=== PATIENT | female | born 1940 | race Caucasian/White ===

== ENCOUNTER 2020-08-10 06:54 | Outpatient (NON) | payer MEDICARE, SELFPAY ==
[2020-08-10 18:05] LABS: SARS-CoV-2 RNA PCR Negative
== END 2020-08-10 06:55 ==
LOC: ANHCOVIDDT 06:59
PROVIDERS: PCP Internal Medicine; Visit Provider Internal Medicine
DX: Z20.828 Contact with and (suspected) exposure to other viral communicable diseases (principal)
CPT/HCPCS: 87635; C9803; U0003

== ENCOUNTER → 2020-12-05 15:27 | Outpatient (REF) | payer MEDICARE, SELFPAY | LOC: ANHLAB 15:27 | PROVIDERS: PCP Internal Medicine; Visit Provider Nurse Practitioner | DX: C44.319 Basal cell carcinoma of skin of other parts of face (principal) | CPT/HCPCS: 88305 ==

== ENCOUNTER → 2021-01-09 09:56 | Outpatient (REF) | payer MEDICARE, SELFPAY | LOC: ANHLAB 09:56 | PROVIDERS: PCP Internal Medicine; Visit Provider Nurse Practitioner | DX: C44.319 Basal cell carcinoma of skin of other parts of face (principal) | CPT/HCPCS: 88305; 88331 ==

== ENCOUNTER 2021-02-08 18:35 | Emergency (ER) | payer MEDICARE, SELFPAY | END 2021-02-08 19:24 | disposition left against medical advice (07) | LOC: ANHED 19:23 | PROVIDERS: PCP Internal Medicine | DX: Z53.21 Procedure and treatment not carried out due to patient leaving prior to being seen by health care provider (principal) | CPT/HCPCS: 99199 ==

== ENCOUNTER 2021-02-10 16:47 | Emergency (ER) | payer MEDICARE, SELFPAY ==
[2021-02-10 16:57] VITALS: BP 141/62; PULSE 79; RESP 16; TEMP 36.3; O2SAT 97
--- NOTE | 2021-02-10 17:30 | ED.GENADULT ---
HPI - General Adult General Chief complaint: Ear Stated complaint: neck pain/ear pain Time Seen by Provider: 02/10/21 17:30 Source: patient and RN notes reviewed Mode of arrival: ambulatory Limitations: no limitations History of Present Illness HPI narrative: 80-year-old female presents with complaints of neck pain and fatigue for the past 14 days. Lance reports awakening with neck pain, which is constant at this time. 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 Arthritis rub and Ibuprofen last taken on 02/09/2021 with some relief. No recent injury. No headache or numbness or weakness in the arms/upper extremities. Denies numbness or tingling. Denies pain with movement of shoulder. No loss of mobility. No swelling. Some relieving factor is rest and medication. The dominant hand is the RIGHT HAND. Remains active. The patient reports she has not been diagnosed with COVID-19. The patient reports she received 2 Pfizer vaccines. ?The patient reports she is not waiting for the results of a COVID-19 lab test. The patient reports she does not have a new or worsening cough or shortness of breath. Denies chest pain. ?The patient reports she does not have any rhinorrhea, congestion, loss of taste or smell, sore throat, abdominal pain, and diarrhea. ?Denies recent traveling. ?Denies concerns for COVID-19 or exposures. ?At this time, the patient is not suspected of having COVID-19. Some parts of this dictation were generated by voice recognition software and may contain typographical and/or grammatical inaccuracies. Related Data Allergies Allergy/AdvReac Type Severity Reaction Status Date / Time acetaminophen [From Vicodin] Allergy Severe Swelling Verified 02/10/21 17:02 of Lip/Tongue/Throat hydrocodone Allergy Severe Anaphylactic Verified 02/10/21 17:02 Shock propoxyphene Allergy Mild NECK Verified 02/10/21 17:02 SWELLING Sulfa (Sulfonamide Allergy Mild Nausea Verified 02/10/21 17:02 Antibiotics) FISH Allergy Severe THROAT Uncoded 02/10/21 17:02 SWELLS CEFUROXIME AXETIL Allergy Intermediate HIVES Uncoded 02/10/21 17:02 SHELLFISH Allergy Unknown Anaphylactic Uncoded 02/10/21 17:02 Shock Review of Systems Review of Systems: Narrative: CONSTITUTIONAL: Denies fever, chills, sweats. EYES: Denies visual changes, redness, discharge. ENT: Denies rhinorrhea, congestion, sore throat, otalgia. CARDIOVASCULAR: Denies chest pain, palpitations, edema. RESPIRATORY: Denies dyspnea, wheezing, cough. GASTROINTESTINAL: Denies abdominal pain, nausea, vomiting, diarrhea. SKIN: Denies rash or itching. MUSCULOSKELETAL: Denies acute back pain or myalgia. Complains of neck pain. NEUROLOGIC: Denies numbness or focal weakness. PSYCHIATRIC: Denies anxiety or depression. All other systems reviewed are negative, except as documented in HPI and below. [facility] Past Medical History Medical History (Updated 02/11/21 @ 00:00 by [facility]) Actinic keratosis Basal cell carcinoma of right hoahaoism region Benign mole Chronic allergic rhinitis Diabetes Type II Essential (primary) hypertension Low back pain at multiple sites Major depression, recurrent, chronic OAB (overactive bladder) (08/06/18) Skin Lesion Surgical History Surgical History (Updated 02/10/21 @ 17:47 by CARLY Boateng) History of cholecystectomy Family History Family History Father Family history of lung cancer Sibling Family history of lung cancer Mother Family history of congestive heart failure Other Cerebrovascular accident Diabetes mellitus Family history of cardiovascular disease Family history of chronic obstructive pulmonary disease Hypertension Social History Social History (Updated 02/10/21 @ 17:48 by CARLY Boateng) Smoking status: Never smoker Tobacco type: cigarettes Second hand tobacco smoke e
== END 2021-02-10 18:02 | disposition home or self-care (01) ==
PROVIDERS: Emergency Provider Nurse Practitioner Family
DX: M54.2 Cervicalgia (principal); E11.9 Type 2 diabetes mellitus without complications; I10 Essential (primary) hypertension; Z85.828 Personal history of other malignant neoplasm of skin
CPT/HCPCS: 99213; G0463

== ENCOUNTER 2021-02-27 17:19 | Emergency (ER) | payer MEDICARE, SELFPAY ==
[2021-02-27] VITALS (31 sets, daily range): BP systolic 143–174; BP diastolic 70–88; PULSE 65–82; RESP 16–20; TEMP 36.1–36.7; O2SAT 96–100
--- NOTE | ~2021-02-27 | CT_ITS ---
EXAMINATION: CT cervical spine wo con EXAM DATE: 02/27/2021 23:03 INDICATION: Posterior neck pain. No recent injury has been indicated. TECHNIQUE: Spiral CT of the cervical spine was performed without contrast. Axial images were reviewe d. Coronal and sagittal reformatted images cervical spine were also reviewed. The dose-length produc t (DLP) for this examination was 108.71 mGy-cm. The exposure was tailored according to patient size (auto mA exposure control), and iterative reconstruction (ASIR) was used as additional dose reduction technique. There is no prior study for comparison. FINDINGS: The vertebral bodies are aligned in the AP dimension. There are no acute fractures identifi ed. The odontoid process is intact. The lateral masses of C1 line up with C2. Prevertebral soft tiss ue and pre-dens space are within normal limits. Overall moderate to severe diffuse cervical disc dise ase. There is thoracic kyphosis. Level by level evaluation: C2-C3: Disc does not extend beyond the endplate margin. Uncovertebral joint arthropathy: Mild to moderate left. Facet joint arthropathy: Moderate bilateral. Neural foraminal stenosis: No stenosis. Central canal stenosis: No stenosis. C3-C4: There is posterior disc osteophyte complex asymmetric to the left Uncovertebral joint arthropathy: Moderate left, mild to moderate right. Facet joint arthropathy: Moderate bilateral. Neural foraminal stenosis: Moderate left, mild right. Central canal stenosis: Mild. C4-C5: There is mild disc osteophyte complex. Uncovertebral joint arthropathy: Moderate right, mild to moderate left. Facet joint arthropathy: Moderate to severe right, mild to moderate left. Neural foraminal stenosis: Moderate to severe right, moderate left. Central canal stenosis: Mild. C5-C6: There is mild disc osteophyte complex. Uncovertebral joint arthropathy: Moderate to severe bilateral. Facet joint arthropathy: Moderate bilateral. Neural foraminal stenosis: Moderate to severe bilateral. Central canal stenosis: Mild. C6-C7: There is mild disc osteophyte complex. Uncovertebral joint arthropathy: Moderate bilateral, left greater than right. Facet joint arthropathy: Mild to moderate left, mild right. Neural foraminal stenosis: Moderate left, mild to moderate right. Central canal stenosis: Mild. C7-T1: Disc does not extend beyond the endplate margin. Uncovertebral joint arthropathy: Mild right. Facet joint arthropathy: Mild bilateral. Neural foraminal stenosis: No stenosis. Central canal stenosis: No stenosis. IMPRESSION: 1. Advanced cervical spondylosis causing some significant neural foraminal stenosis as detailed abov e. Evidence of only mild central canal stenosis. 2. Thoracic kyphosis. 3. No acute findings. Reviewed, dictated and finalized at location B. IMPRESSION: 1. Advanced cervical spondylosis causing some significant neural foraminal delfino nosis as detailed above. Evidence of only mild central canal stenosis. 2. Thoracic kyphosis. 3. No acute findings.
--- NOTE | ~2021-02-27 | XR_ITS ---
XR chest 1V DATE: 02/27/2021 22:53 INDICATION: Chest pain, lower extremity edema. History of diabetes mellitus, hypertension. TECHNIQUE: AP chest COMPARISON: 07/20/2013 PA and lateral chest FINDINGS: Mild cardiomegaly. Aortic calcification and mild tortuosity. No hilar or mediastinal enlarg ement. Diffuse osteopenia. No pulmonary infiltrate or consolidation, pleural effusion or pulmonary vascular congestion or pneumo thorax is evident. Chronic mild discoid atelectasis or scarring in the left lung base. Diffuse osteopenia. Thoracic and lumbar scoliosis. Status post cholecystectomy. IMPRESSION: Mild cardiomegaly, aortic atherosclerosis No active pulmonary disease Reviewed, dictated and finalized at location A.
--- NOTE | 2021-02-27 22:31 | ECG_ITS ---
Measurements Intervals [place] Rate: 71 P: 74 WI: 174 QRS: -37 QRSD: 113 T: -1 QT: 411 QTc: 448 Interpretive Statements SINUS RHYTHM WITH SINUS ARRHYTHMIA LEFT AXIS DEVIATION INTRAVENTRICULAR CONDUCTION DELAY VOLTAGE CRITERIA FOR LVH MINIMAL Q WAVES- HIGH LATERAL LEADS NONSPECIFIC ST & T-WAVE ABNORMALITY- ANTEROLAT/INF LEADS BASELINE ARTIFACT- II, III, AVR, AVF, V3-V5 BORDERLINE ECG Electronically Signed On 02-28-2021 9:39:14 CDT by Demarco Gunter D.O.
[2021-02-27] MEDS: ASPIRIN 81 MG CHEWABLE TABLET 324 MG PO (23:08)
[2021-02-27 23:36] LABS: Alanine Aminotransferase 19 U/L (4-35); Albumin Level 4.2 g/dL (3.5-5.1); Alkaline Phosphatase 49 U/L (38-126); Anion Gap 5 mmol/L (8-16); Aspartate Amino Transferase 43 U/L (14-36); Bilirubin,Total 1.1 mg/dL (0.2-1.3); Blood Urea Nitrogen 23 mg/dL (7-17); Calcium 9.7 mg/dL (8.4-10.2); Carbon Dioxide 27 mmol/L (22-30); Chloride 106 mmol/L (98-107); Estimated CRCL calculation 37 ml/min; Estimated Glomerular Filt Rate > 60; Glucose 87 mg/dL (65-105); Potassium 4.6 mmol/L (3.4-5.0); Sodium 138 mmol/L (137-145)
[2021-02-27 23:38] LABS: Basophils Percent Auto 0.2 % (0.2-1.2); Eosinophils Absolute Auto 0.3 K/mm3 (0-0.3); Eosinophils Percent Auto 6.3 % (0-4.4); Hematocrit 35.3 % (37.0-47.0); Hemoglobin 11.5 g/dL (12.0-15.0); Lymphocytes Absolute Auto 1.61 K/mm3 (0.9-3.2); Lymphocytes Percent Auto 37.6 % (18.3-44.2); Mean Corpuscular HGB Conc 32.6 g/dl (32-36); Mean Corpuscular Hemoglobin 31.4 pg (26-34); Mean Corpuscular Volume 96.4 fl (80-100); Mean Platelet Volume 10.6 fl (7.4-10.4); Monocytes Absolute Auto 0.5 K/mm3 (0.1-0.6); Monocytes Percent Auto 11.4 % (2.6-8.5); Neutrophils Absolute Auto 1.9 K/mm3 (1.3-6.7); Neutrophils Percent Auto 44.5 % (45.5-73.1); Platelet Count Result 182 k/mm3 (150-375); Red Blood Count 3.66 M/mm3 (4.2-5.4); Red Cell Distribution Width 11.6 % (11.5-14.5); White Blood Count 4.3 K/mm3 (4.5-10.0)
[2021-02-27 23:45] LABS: NT Pro B Type Natriuretic Pept 311 pg/mL (5-100)
[2021-02-27 23:48] LABS: Troponin I < 0.012 ng/mL (0.000-0.034)
[2021-02-28] VITALS: PULSE 67; RESP 18; O2SAT 98
[2021-02-28 00:15] VITALS: PULSE 65; RESP 15; O2SAT 96
[2021-02-28 00:30] VITALS: PULSE 69; RESP 16; O2SAT 96
[2021-02-28 00:45] VITALS: PULSE 69; RESP 19; O2SAT 97
[2021-02-28 00:48] VITALS: BP 195/98; PULSE 78; RESP 18; O2SAT 100
--- NOTE | 2021-02-28 01:03 | ED.GENADULT ---
HPI - General Adult General Chief complaint: Unspecified Stated complaint: Neck pain,swelling bilateral feet and legs Time Seen by Provider: 02/27/21 22:02 Related Data Allergies Allergy/AdvReac Type Severity Reaction Status Date / Time acetaminophen [From Vicodin] Allergy Severe Swelling Verified 02/27/21 19:57 of Lip/Tongue/Throat hydrocodone Allergy Severe Anaphylactic Verified 02/27/21 19:57 Shock propoxyphene Allergy Mild NECK Verified 02/27/21 19:57 SWELLING Sulfa (Sulfonamide Allergy Mild Nausea Verified 02/27/21 19:57 Antibiotics) FISH Allergy Severe THROAT Uncoded 02/27/21 19:57 SWELLS CEFUROXIME AXETIL Allergy Intermediate HIVES Uncoded 02/27/21 19:57 SHELLFISH Allergy Unknown Anaphylactic Uncoded 02/27/21 19:57 Shock PMFSH Past Medical History Medical History (Updated 02/28/21 @ 01:03 by Cameron Ochoa MD) Actinic keratosis Basal cell carcinoma of right moravian region Benign mole Chronic allergic rhinitis Diabetes Type II Essential (primary) hypertension Low back pain at multiple sites Major depression, recurrent, chronic OAB (overactive bladder) (08/06/18) Skin Lesion Surgical History Surgical History (Updated 02/10/21 @ 17:47 by CARLY Boateng) History of cholecystectomy Family History Family History Father Family history of lung cancer Sibling Family history of lung cancer Mother Family history of congestive heart failure Other Cerebrovascular accident Diabetes mellitus Family history of cardiovascular disease Family history of chronic obstructive pulmonary disease Hypertension Social History Social History (Updated 02/10/21 @ 17:48 by CARLY Boateng) Smoking status: Never smoker Tobacco type: cigarettes Second hand tobacco smoke exposure: No Alcohol intake: current Substance use: never Substance use type: does not use Gender identity (if verbalized by the patient): Female Course Vital Signs Vital signs: Vital Signs Temperature 36.1 C L 02/27/21 17:23 Pulse Rate 79 02/27/21 17:23 Respiratory Rate 16 02/27/21 17:23 Blood Pressure 143/70 H 02/27/21 17:23 Pulse Oximetry 97 02/27/21 17:23 Temperature 36.7 C 02/27/21 19:58 Pulse Rate 78 07/06/21 00:48 Respiratory Rate 18 02/28/21 00:48 Blood Pressure 195/98 H 02/28/21 00:48 Pulse Oximetry 100 02/28/21 00:48 Medical Decision Making Vital Signs Vital Signs: Vital Signs Temperature 36.1 C L 02/27/21 17:23 Pulse Rate 79 02/27/21 17:23 Respiratory Rate 16 02/27/21 17:23 Blood Pressure 143/70 H 02/27/21 17:23 Pulse Oximetry 97 02/27/21 17:23 Temperature 36.7 C 02/27/21 19:58 Pulse Rate 78 02/28/21 00:48 Respiratory Rate 18 02/28/21 00:48 Blood Pressure 195/98 H 02/28/21 00:48 Pulse Oximetry 100 02/28/21 00:48 Lab Data Result diagrams: 02/27/21 23:11 02/27/21 23:11 Labs: Lab Results 02/27/21 02/27/21 02/27/21 Range/Units 23:11 23:11 23:11 WBC 4.3 L (4.5-10.0) K/mm3 RBC 3.66 L (4.2-5.4) M/mm3 Hgb 11.5 L (12.0-15.0) g/dL Hct 35.3 L (37.0-47.0) % MCV 96.4 (80-100) fl MCH 31.4 (26-34) pg MCHC 32.6 (32-36) g/dl RDW 11.6 (11.5-14.5) % Plt Count 182 (150-375) k/mm3 MPV 10.6 H (7.4-10.4) fl Immature Gran % (Auto) 0.0 (0-0.5) % Neut % (Auto) 44.5 L (45.5-73.1) % Lymph % (Auto) 37.6 (18.3-44.2) % [place] % (Auto) 11.4 H (2.6-8.5) % Eos % (Auto) 6.3 H (0-4.4) % Baso % (Auto) 0.2 (0.2-1.2) % Lymph # (Auto) 1.61 (0.9-3.2) K/mm3 [place] # (Auto) 0.5 (0.1-0.6) K/mm3 Eos # (Auto) 0.3 (0-0.3) K/mm3 Baso # (Auto) 0.0 (0.0-0.1) K/mm3 Abs Immat Gran (auto) 0.00 (0.00-0.031) K/mm3 Absolute Neuts (auto) 1.9 (1.3-6.7) K/mm3 Absolute Nucleated RBC 0.0 (0.0-0.012) K/mm3 Nucleated RBC % 0.0
[2021-02-28] MEDS: traMADol HCL (*CRX) 50 MG TABLET PO (01:14)
[2021-02-28 01:15] VITALS: BP 174/84; PULSE 78; RESP 18; O2SAT 100
== END 2021-02-28 01:22 | disposition home or self-care (01) ==
PROVIDERS: Emergency Provider Emergency Medicine
DX: S16.1XXA Strain of muscle, fascia and tendon at neck level, initial encounter (principal); E11.9 Type 2 diabetes mellitus without complications; I10 Essential (primary) hypertension; N32.81 Overactive bladder; Z85.828 Personal history of other malignant neoplasm of skin; R06.02 Shortness of breath; I45.9 Conduction disorder, unspecified; R94.31 Abnormal electrocardiogram [ECG] [EKG]; X58.XXXA Exposure to other specified factors, initial encounter
CPT/HCPCS: 36415; 71045; 72125; 80053; 83880; 84484; 85025; 93005; 99284; A9270

== ENCOUNTER 2021-03-17 10:31 | Outpatient (CLI) | payer MEDICARE, SELFPAY ==
[2021-03-17 10:56] LABS: Basophils Percent Auto 0.3 % (0.2-1.2); Eosinophils Absolute Auto 0.3 K/mm3 (0-0.3); Eosinophils Percent Auto 7.5 % (0-4.4); Hematocrit 35.7 % (37.0-47.0); Hemoglobin 11.7 g/dL (12.0-15.0); Lymphocytes Absolute Auto 1.13 K/mm3 (0.9-3.2); Lymphocytes Percent Auto 29.2 % (18.3-44.2); Mean Corpuscular HGB Conc 32.8 g/dl (32-36); Mean Corpuscular Hemoglobin 31.5 pg (26-34); Mean Corpuscular Volume 96.2 fl (80-100); Monocytes Absolute Auto 0.5 K/mm3 (0.1-0.6); Monocytes Percent Auto 12.4 % (2.6-8.5); Neutrophils Percent Auto 50.6 % (45.5-73.1); Platelet Count Result 188 k/mm3 (150-375); Red Blood Count 3.71 M/mm3 (4.2-5.4); Red Cell Distribution Width 11.8 % (11.5-14.5); White Blood Count 3.9 K/mm3 (4.5-10.0)
[2021-03-17 11:15] LABS: Alanine Aminotransferase 21 U/L (4-35); Albumin Level 4.3 g/dL (3.5-5.1); Alkaline Phosphatase 45 U/L (38-126); Anion Gap 7 mmol/L (8-16); Aspartate Amino Transferase 34 U/L (14-36); Bilirubin,Total 1.1 mg/dL (0.2-1.3); Blood Urea Nitrogen 26 mg/dL (7-17); Calcium 9.9 mg/dL (8.4-10.2); Carbon Dioxide 25 mmol/L (22-30); Chloride 108 mmol/L (98-107); Cholesterol 219 mg/dL (0-200); Estimated Glomerular Filt Rate > 60; Glucose 97 mg/dL (65-110); HDL Direct 69 mg/dL; Potassium 4.3 mmol/L (3.4-5.0); Sodium 140 mmol/L (137-145); Triglycerides 103 mg/dL (<150)
[2021-03-17 11:25] LABS: LDL Cholesterol Direct 108 mg/dL
== END 2021-03-17 10:32 | disposition home or self-care (01) ==
PROVIDERS: PCP Family Medicine; Visit Provider Physician Assistant Medical
DX: R59.1 Generalized enlarged lymph nodes (principal); N28.9 Disorder of kidney and ureter, unspecified; R79.89 Other specified abnormal findings of blood chemistry; Z13.220 Encounter for screening for lipoid disorders; G25.0 Essential tremor
CPT/HCPCS: 36415; 80053; 80061; 84443; 85025

== ENCOUNTER → 2021-03-24 11:28 | Outpatient (CLI) | payer MEDICARE, SELFPAY ==
--- NOTE | ~2021-03-24 | XR_ITS ---
EXAMINATION: XR chest 2V EXAM DATE: 03/24/2021 11:57 INDICATION: D72.9 - Disorder of white blood cells, unspecified . TECHNIQUE: Frontal and lateral projections of the chest obtained and reviewed. Comparison is made to prior examination from 02/27/2021. FINDINGS: There is moderate thoracolumbar scoliosis. Mild hyperinflation. The lungs are clear. Ther e are no pleural effusions. The cardiomediastinal silhouette is within normal limits. There is no p neumothorax suspected. The bones and soft tissues are unremarkable. IMPRESSION: No acute cardiopulmonary findings. Reviewed, dictated and finalized at location B.
--- NOTE | ~2021-03-24 | US_ITS ---
EXAMINATION: US soft tissue head and neck EXAM DATE: 03/24/2021 11:59 INDICATION: R59.1 - Generalized enlarged lymph nodes . TECHNIQUE: Multiple grayscale and Doppler images of the right-sided neck palpable abnormality were ob tained (by a technologist who performed the scan) and subsequently reviewed. There is no prior study for comparison. FINDINGS: Scanning in the area of clinical concern demonstrates a lymph node measuring 1.8 x 0.9 x 1.1 cm, uppe r limits of normal in size but given large fatty hilum, consistent with reactive etiology. IMPRESSION: 1. Reactive right internal jugular chain lymph node. Reviewed, dictated and finalized at location B.
== END ==
PROVIDERS: PCP Physician Assistant Medical; Visit Provider Physician Assistant Medical
DX: R59.1 Generalized enlarged lymph nodes (principal); D72.9 Disorder of white blood cells, unspecified
CPT/HCPCS: 71046; 76536

== ENCOUNTER 2021-04-07 11:52 | Outpatient (CLI) | payer MEDICARE, SELFPAY ==
[2021-04-07 13:15] LABS: Basophils Percent Auto 0.2 % (0.2-1.2); Eosinophils Absolute Auto 0.3 K/mm3 (0-0.3); Eosinophils Percent Auto 5.7 % (0-4.4); Hematocrit 36.4 % (37.0-47.0); Hemoglobin 12.1 g/dL (12.0-15.0); Immature Granulocyte Absolute 0.01 K/mm3 (0.00-0.031); Immature Granulocyte Percent A 0.2 % (0-0.5); Lymphocytes Percent Auto 31.7 % (18.3-44.2); Mean Corpuscular HGB Conc 33.2 g/dl (32-36); Mean Corpuscular Hemoglobin 31.8 pg (26-34); Mean Corpuscular Volume 95.8 fl (80-100); Mean Platelet Volume 10.3 fl (7.4-10.4); Monocytes Absolute Auto 0.6 K/mm3 (0.1-0.6); Monocytes Percent Auto 12.7 % (2.6-8.5); Neutrophils Absolute Auto 2.2 K/mm3 (1.3-6.7); Neutrophils Percent Auto 49.5 % (45.5-73.1); Platelet Count Result 188 k/mm3 (150-375); Red Cell Distribution Width 11.9 % (11.5-14.5); White Blood Count 4.4 K/mm3 (4.5-10.0)
[2021-04-07 13:19] LABS: Anion Gap 7 mmol/L (8-16); Blood Urea Nitrogen 18 mg/dL (7-17); Calcium 9.7 mg/dL (8.4-10.2); Carbon Dioxide 29 mmol/L (22-30); Chloride 102 mmol/L (98-107); Estimated Glomerular Filt Rate > 60; Glucose 100 mg/dL (65-110); Potassium 4.5 mmol/L (3.4-5.0); Sodium 138 mmol/L (137-145)
[2021-04-07 14:29] LABS: Iron 125 ug/dL (37-170); Percent Iron Saturation 40 % (20-50)
== END 2021-04-07 11:53 | disposition home or self-care (01) ==
LOC: ANHLAB 11:55
PROVIDERS: PCP Physician Assistant Medical; Visit Provider Physician Assistant Medical
DX: D64.9 Anemia, unspecified (principal); D72.9 Disorder of white blood cells, unspecified; N28.9 Disorder of kidney and ureter, unspecified
CPT/HCPCS: 36415; 80048; 83540; 83550; 85025

== ENCOUNTER 2021-04-14 12:20 | Outpatient (CLI) | payer MEDICARE, SELFPAY ==
--- NOTE | ~2021-04-14 | CT_ITS ---
EXAMINATION: CT soft tissue neck w con DATE: 04/14/2021 12:52 INDICATION: Localized enlarged lymph nodes. TECHNIQUE: Computed tomography (CT) of the neck was performed with 75 mL Omnipaque-350 intravenous co ntrast. Automated exposure control and iterative reconstruction technique were employed. The dose-ros gth product was 323.73 mGy-cm. COMPARISON: Ultrasound 03/24/2021 FINDINGS: There is mild scarring at the lung apices. There are no pathologically enlarged lymph nodes . There are likely changes of ocular lens replacement surgeries. There is plaque in the proximal inte rnal carotid arteries with 0% stenosis relative to normal distal artery lumen diameters. There is mil d mucosal thickening in the ethmoid sinuses. The mastoid air cells are normal. There is severe cervic al spondylosis. IMPRESSION: 1. No abnormal mass or lymphadenopathy. Reviewed, dictated and finalized at location B.
--- NOTE | 2021-04-14 13:08 | ECHO_ITS ---
Patient Info Name: Lance Vargas Age: 80 years : 1940 Gender: Female Ht: 60 in Wt: 132 lbs BSA: 1.61 m2 HR: 71 bpm BP: 146 / 83 mmHg Technical Quality: Fair Exam Date: 04/14/2021 1:21 PM Exam Location: [facility] Patient Status: Outpatient Admit Date: 04/14/2021 Staff Ordering Physician: Neeta Zuleta PAC Clinical Editor: Letty Doty RDCS Attending Provider: Neeta Zuleta PAC Referring Physician: Merlyn MALAVE; Exam Type: CA echo doppler color flow Study Info Indications R01.1 - Cardiac murmur, unspecified Complete two-dimentional, color flow and Doppler transthoracic echocardiogram is performed with agitated saline and with contrast to opacify the left ventricle and to improve the delineation of the left ventricle endocardial borders. Complete two-dimensional, color flow and Doppler transthoracic echocardiogram is performed. Summary 1. Complete two-dimensional, color flow and Doppler transthoracic echocardiogram is performed. 2. Left ventricular chamber dimension is normal. 3. Left ventricular systolic function is normal, estimated at 55-60%. 4. The left ventricular diastolic function is abnormal. 5. E/e' 19 is elevated. 6. Left atrial chamber dimension is mildly enlarged. 7. The mitral valve has moderately calcified annulus. 8. There is mild mitral valve regurgitation. 9. There is mild tricuspid valve regurgitation. 10. No pulmonary hypertension, estimated pulmonary arterial systolic pressure is 33 mmHg. Left Ventricle E/e' 19 is elevated. Left ventricular chamber dimension is normal. Left ventricular systolic function is normal, estimated at 55-60%. The left ventricular diastolic function is abnormal. Right Ventricle Right ventricular chamber dimension is normal. Right ventricular systolic function is normal. Left Atria Left atrial chamber dimension is mildly enlarged. Right Atria Right atrial chamber dimension is normal. Aortic Valve The aortic valve is trileaflet. There is no aortic valve stenosis. There is no aortic valve regurgitation. Pulmonic Valve There is no pulmonic regurgitation. Mitral Valve The mitral valve has moderately calcified annulus. There is no mitral valve stenosis. There is mild mitral valve regurgitation. Tricuspid Valve There is mild tricuspid valve regurgitation. No pulmonary hypertension, estimated pulmonary arterial systolic pressure is 33 mmHg. Pericardium/Pleural There is no pericardial effusion. Inferior Vena Cava Normal inferior vena cava with >50% collapse upon inspiration consistent with normal right atrial pressure, 5 mmHg. Aorta The aortic root size at the sinus of Valsalva is normal. Left Ventricular Outflow Tract Name Value Normal LVOT 2D LVOT Diameter 2.1 cm LVOT Doppler LVOT Peak Gradient 3 mmHg LVOT Mean Gradient 1 mmHg LVOT VTI 22 cm LVOT VTI/AV VTI Ratio 0.7 LVOT Stroke Volume 75 ml LVOT CO 4.3 l/min LVO
--- NOTE | 2021-04-25 12:14 | WPDHOLTEREM ---
Holter/Event Monitor Holter/Event Monitor Date of procedure: 04/14/21 Holter/Event Procedure: 48 Hr Holter Monitor Indications: Cardiac murmur Conclusion: 1. 48 hour holter monitor on 04/14/21. 2. Predominant rhythm is sinus rhythm. HR range 50-110 bpm; average HR 78 bpm. 3. There are 599 premature supraventricular complexes, 24 supraventricular couplets, 3 supraventricular bigeminy. There are 14 episodes of atrial tachycardia, fastest at 162 bpm and longest lasting 17 beats. 4. There are 35 premature ventricular complexes and 1 ventricular couplet. No ventricular tachycardia. 5. No sinoatrial or atrioventricular blocks. No significant pauses greater than 2 seconds. 6. Patient reports symptoms of chest pain, head pain, back pain, exhaustion which demonstrate sinus rhythm, 67-99 bpm.
== END 2021-04-14 12:21 | disposition home or self-care (01) ==
LOC: ANHCARD 12:21
PROVIDERS: PCP Family Medicine; Visit Provider Physician Assistant Medical
DX: R01.1 Cardiac murmur, unspecified (principal); I49.9 Cardiac arrhythmia, unspecified; R59.0 Localized enlarged lymph nodes; R59.1 Generalized enlarged lymph nodes; D72.9 Disorder of white blood cells, unspecified
CPT/HCPCS: 70491; 93225; 93226; 93306; Q9967

== ENCOUNTER → 2021-04-28 10:29 | Outpatient (CLI) | payer MEDICARE, SELFPAY ==
--- NOTE | ~2021-04-28 | CT_ITS ---
EXAMINATION: CT abdomen pelvis w con INDICATION: Right lower quadrant mass and swelling TECHNIQUE: Computed tomographic images of the abdomen and pelvis were obtained after the administrati on of 100 cc of Omnipaque 350 intravenous contrast. The dose-length product (DLP) was 300.34 mGy-cm. Automated exposure control and iterative reconstruction technique were employed. COMPARISON: 03/03/2012 FINDINGS: Minimal dependent atelectasis is present in the lung bases. The heart size is normal. The g allbladder is surgically absent. There is mild enlargement of the common bile duct and central intrah epatic ducts which is likely due to post cholecystectomy state. Punctate calcifications in an otherwi se normal spleen likely represent healed granulomatous disease. The liver, pancreas, and adrenal glan ds are normal. The right kidney is unremarkable. There is a 4 mm nonobstructing stone of the left kid jesusita lower pole. The appendix is normal. No right lower quadrant mass is identified. No pathologically enlarged abdominal or pelvic lymph nodes are identified. There is no free intraperitoneal gas or samantha dence of bowel obstruction. There is severe spondylosis at the thoracolumbar junction. IMPRESSION: 1. No CT correlate for the patient's symptoms. No right lower quadrant mass identified. Reviewed, dictated and finalized at location A. IMPRESSION: 1. No CT correlate for the patient's symptoms. No right lower quadrant mass zamzam ntified.
[2021-04-28 10:57] LABS: Estimated Glomerular Filt Rate > 60
== END ==
PROVIDERS: PCP Family Medicine; Visit Provider Family Medicine
DX: R19.03 Right lower quadrant abdominal swelling, mass and lump (principal)
CPT/HCPCS: 74177; Q9967

== ENCOUNTER 2021-05-24 14:16 | Outpatient (CLI) | payer MEDICARE, SELFPAY ==
--- NOTE | ~2021-05-24 | XR_ITS ---
XR knee RT 2V DATE: 05/24/2021 14:40 INDICATION: Anterior right knee pain. No injury. TECHNIQUE: Weightbearing AP and lateral views COMPARISON: None FINDINGS: Small suprapatellar knee joint effusion is suggested. There is osteoarthritis at the patellofemoral and medial compartments. No fracture, dislocation, periosteal reaction or bone destruction is evident. IMPRESSION: Osteoarthritis and possible small suprapatellar knee joint effusion Reviewed, dictated and finalized at location B.
[2021-05-24 15:04] LABS: Basophils Percent Auto 0.4 % (0.2-1.2); Eosinophils Absolute Auto 0.3 K/mm3 (0-0.3); Eosinophils Percent Auto 5.9 % (0-4.4); Hematocrit 35.5 % (37.0-47.0); Immature Granulocyte Absolute 0.01 K/mm3 (0.00-0.031); Immature Granulocyte Percent A 0.2 % (0-0.5); Lymphocytes Absolute Auto 1.47 K/mm3 (0.9-3.2); Lymphocytes Percent Auto 27.3 % (18.3-44.2); Mean Corpuscular HGB Conc 33.8 g/dl (32-36); Mean Corpuscular Hemoglobin 31.7 pg (26-34); Mean Corpuscular Volume 93.9 fl (80-100); Monocytes Absolute Auto 0.6 K/mm3 (0.1-0.6); Monocytes Percent Auto 10.2 % (2.6-8.5); Platelet Count Result 216 k/mm3 (150-375); Red Blood Count 3.78 M/mm3 (4.2-5.4); Red Cell Distribution Width 11.4 % (11.5-14.5); White Blood Count 5.4 K/mm3 (4.5-10.0)
[2021-05-24 15:15] LABS: Anion Gap 9 mmol/L (8-16); Blood Urea Nitrogen 26 mg/dL (7-17); Calcium 9.6 mg/dL (8.4-10.2); Carbon Dioxide 27 mmol/L (22-30); Chloride 104 mmol/L (98-107); Estimated Glomerular Filt Rate > 60; Glucose 99 mg/dL (65-110); Potassium 4.1 mmol/L (3.4-5.0); Sodium 140 mmol/L (137-145)
== END 2021-05-24 14:17 | disposition home or self-care (01) ==
PROVIDERS: PCP Family Medicine; Visit Provider Physician Assistant Medical
DX: R25.2 Cramp and spasm (principal); M17.11 Unilateral primary osteoarthritis, right knee; I10 Essential (primary) hypertension
CPT/HCPCS: 36415; 73560; 80048; 83735; 85025

== ENCOUNTER 2021-06-26 13:50 | Outpatient (CLI) | payer MEDICARE, SELFPAY ==
[2021-06-26 14:19] LABS: Basophils Percent Auto 0.4 % (0.2-1.2); Eosinophils Absolute Auto 0.3 K/mm3 (0-0.3); Eosinophils Percent Auto 6.6 % (0-4.4); Hematocrit 36.9 % (37.0-47.0); Hemoglobin 12.3 g/dL (12.0-15.0); Immature Granulocyte Absolute 0.01 K/mm3 (0.00-0.031); Immature Granulocyte Percent A 0.2 % (0-0.5); Lymphocytes Absolute Auto 1.21 K/mm3 (0.9-3.2); Lymphocytes Percent Auto 25.1 % (18.3-44.2); Mean Corpuscular HGB Conc 33.3 g/dl (32-36); Mean Corpuscular Hemoglobin 32.6 pg (26-34); Mean Corpuscular Volume 97.9 fl (80-100); Mean Platelet Volume 9.9 fl (7.4-10.4); Monocytes Absolute Auto 0.5 K/mm3 (0.1-0.6); Neutrophils Absolute Auto 2.8 K/mm3 (1.3-6.7); Neutrophils Percent Auto 57.7 % (45.5-73.1); Platelet Count Result 205 k/mm3 (150-375); Red Blood Count 3.77 M/mm3 (4.2-5.4); Red Cell Distribution Width 11.9 % (11.5-14.5); White Blood Count 4.8 K/mm3 (4.5-10.0)
[2021-06-26 14:33] LABS: Anion Gap 5 mmol/L (8-16); Blood Urea Nitrogen 26 mg/dL (7-17); Carbon Dioxide 29 mmol/L (22-30); Chloride 105 mmol/L (98-107); Estimated Glomerular Filt Rate > 60; Glucose 119 mg/dL (65-110); Potassium 4.4 mmol/L (3.4-5.0); Sodium 139 mmol/L (137-145)
== END 2021-06-26 13:51 | disposition home or self-care (01) ==
LOC: ANHLAB 13:54
PROVIDERS: PCP Family Medicine; Visit Provider Physician Assistant Medical
DX: N28.9 Disorder of kidney and ureter, unspecified (principal); D64.9 Anemia, unspecified
CPT/HCPCS: 36415; 80048; 85025

== ENCOUNTER 2021-08-02 11:38 | Outpatient (CLI) | payer MEDICARE, SELFPAY ==
--- NOTE | ~2021-08-02 | XR_ITS ---
EXAMINATION:XR_CERV2-3V_CR DATE: 08/02/2021 12:03 INDICATION: Neck pain TECHNIQUE: AP, lateral, lateral swimmers and odontoid views of the cervical spine are provided. COMPARISON: 07/20/2013 FINDINGS: There are 2 mm of unchanged retrolisthesis of C2 on C3 and C3 on C4. The odontoid is intact . No fracture is identified. The vertebral body heights are maintained. There is moderate loss of int ervertebral disc space height at C2-3 and C5-6 with mild loss of intervertebral disc space height thr oughout the remainder of the cervical spine. There is mild to moderate multilevel facet and uncoverte bral joint osteoarthritis. Severe facet osteoarthritis is noted on the left at C1-2. IMPRESSION: 1. Moderate cervical spondylosis with interval worsening. No acute findings. Reviewed, dictated and finalized at location A. RANCE ATTORNEY
== END 2021-08-02 11:39 | disposition home or self-care (01) ==
LOC: ANHIMG 11:46
PROVIDERS: PCP Family Medicine; Visit Provider Physician Assistant Medical
DX: M50.30 Other cervical disc degeneration, unspecified cervical region (principal); M47.892 Other spondylosis, cervical region
CPT/HCPCS: 72040

== ENCOUNTER 2021-10-06 13:56 | Outpatient (CLI) | payer MEDICARE, SELFPAY ==
[2021-10-06 14:45] LABS: Basophils Percent Auto 0.2 % (0.2-1.2); Eosinophils Absolute Auto 0.3 K/mm3 (0-0.3); Eosinophils Percent Auto 4.6 % (0-4.4); Hematocrit 37.4 % (37.0-47.0); Hemoglobin 12.6 g/dL (12.0-15.0); Immature Granulocyte Absolute 0.01 K/mm3 (0.00-0.031); Immature Granulocyte Percent A 0.2 % (0-0.5); Lymphocytes Absolute Auto 1.16 K/mm3 (0.9-3.2); Lymphocytes Percent Auto 21.6 % (18.3-44.2); Mean Corpuscular HGB Conc 33.7 g/dl (32-36); Mean Corpuscular Hemoglobin 32.1 pg (26-34); Mean Corpuscular Volume 95.2 fl (80-100); Mean Platelet Volume 10.2 fl (7.4-10.4); Monocytes Absolute Auto 0.5 K/mm3 (0.1-0.6); Monocytes Percent Auto 9.5 % (2.6-8.5); Neutrophils Absolute Auto 3.4 K/mm3 (1.3-6.7); Neutrophils Percent Auto 63.9 % (45.5-73.1); Platelet Count Result 224 k/mm3 (150-375); Red Blood Count 3.93 M/mm3 (4.2-5.4); Red Cell Distribution Width 11.9 % (11.5-14.5); White Blood Count 5.4 K/mm3 (4.5-10.0)
[2021-10-06 14:47] LABS: Anion Gap 5 mmol/L (8-16); Blood Urea Nitrogen 22 mg/dL (7-17); Calcium 9.7 mg/dL (8.4-10.2); Carbon Dioxide 26 mmol/L (22-30); Chloride 105 mmol/L (98-107); Estimated Glomerular Filt Rate > 60; Glucose 118 mg/dL (65-110); Potassium 4.1 mmol/L (3.4-5.0); Sodium 136 mmol/L (137-145)
== END 2021-10-06 13:57 | disposition home or self-care (01) ==
LOC: ANHLAB 13:58
PROVIDERS: PCP Family Medicine; Visit Provider Physician Assistant Medical
DX: N28.9 Disorder of kidney and ureter, unspecified (principal)
CPT/HCPCS: 36415; 80048; 85025

== ENCOUNTER 2021-11-13 13:53 | Outpatient (CLI) | payer MEDICARE, SELFPAY ==
[2021-11-13 15:16] LABS: Anion Gap 5 mmol/L (8-16); Blood Urea Nitrogen 25 mg/dL (7-17); Calcium 9.2 mg/dL (8.4-10.2); Carbon Dioxide 30 mmol/L (22-30); Chloride 104 mmol/L (98-107); Estimated Glomerular Filt Rate 60; Glucose 108 mg/dL (65-110); Potassium 4.4 mmol/L (3.4-5.0); Sodium 139 mmol/L (137-145)
== END 2021-11-13 13:54 | disposition home or self-care (01) ==
LOC: ANHLAB 13:56
PROVIDERS: PCP Family Medicine; Visit Provider Physician Assistant Medical
DX: N28.9 Disorder of kidney and ureter, unspecified (principal)
CPT/HCPCS: 36415; 80048

== ENCOUNTER 2022-08-10 14:08 | Outpatient (CLI) | payer MEDICARE, SELFPAY ==
[2022-08-10 15:24] LABS: Anion Gap 8 mmol/L (8-16); Blood Urea Nitrogen 18 mg/dL (7-17); Calcium 9.4 mg/dL (8.4-10.2); Carbon Dioxide 28 mmol/L (22-30); Chloride 104 mmol/L (98-107); Estimated Glomerular Filt Rate > 60; Glucose 108 mg/dL (65-110); Magnesium 2.1 mg/dL (1.6-2.3); Potassium 4.3 mmol/L (3.4-5.0); Sodium 140 mmol/L (137-145)
== END 2022-08-10 14:09 | disposition home or self-care (01) ==
LOC: ANHLAB 14:13
PROVIDERS: PCP Family Medicine; Visit Provider Internal Medicine Cardiovascular Disease
DX: I47.1 Supraventricular tachycardia (principal); R94.31 Abnormal electrocardiogram [ECG] [EKG]; I49.1 Atrial premature depolarization
CPT/HCPCS: 36415; 80048; 83735; 84443

== ENCOUNTER 2023-01-14 17:14 | Inpatient (IN) | payer MEDICARE, SELFPAY ==
[2023-01-14] VITALS (24 sets, daily range): BP systolic 113–133; BP diastolic 67–102; PULSE 88–137; RESP 14–29; TEMP 37.2; O2SAT 95–99
--- NOTE | ~2023-01-14 | XR_ITS ---
EXAMINATION: XR chest 1V portable Exam Date/Time: 01/14/2023 18:05 CDT HISTORY: AFib with RVR Comparison: 03/24/2021 and 02/27/2021. RESULT: Lines, tubes, and devices: Cholecystectomy clips. Lungs and pleura: Diffuse reticular opacities with Moe's B lines. No focal consolidation, effusio n, or pneumothorax. Left basilar scar/atelectasis. Cardiomediastinal silhouette: Cardiomegaly, with water bottle configuration of the heart. Other: No acute osseous or upper abdominal finding. IMPRESSION: Mild interstitial edema. Cardiomegaly with heart configuration that can be associated with pericardia l effusion. Reviewed, dictated and finalized at location K. IMPRESSION: Mild interstitial edema. Cardiomegaly with heart configuration that can be asso ciated with pericardial effusion.
--- NOTE | 2023-01-14 17:15 | ECG_ITS ---
Measurements Intervals [place] Rate: 136 P: IN: 0 QRS: -29 QRSD: 96 T: 89 QT: 356 QTc: 537 Interpretive Statements ATRIAL FLUTTER/TACHYCARDIA WITH RAPID VENTRICULAR RESPONSE INCOMPLETE RIGHT BUNDLE BRANCH BLOCK BORDERLINE R WAVE PROGRESSION, ANTERIOR LEADS BORDERLINE ST-T WAVE ABNORMALITY- HIGH LATERAL LEADS BASELINE ARTIFACT- I, II, AVR, AVL, AVF ABNORMAL ECG COMPARED TO ECG 02/27/2021 23:27:01 ATRIAL FLUTTER NOW PRESENT Electronically Signed On 01-14-2023 21:34:06 CDT by Demarco Gunter D.O.
[2023-01-14 17:31] LABS: Basophils Percent Auto 0.2 % (0.2-1.2); Eosinophils Absolute Auto 0.3 K/mm3 (0-0.3); Eosinophils Percent Auto 3.9 % (0-4.4); Hematocrit 36.7 % (37.0-47.0); Hemoglobin 12.3 g/dL (12.0-15.0); Immature Granulocyte Absolute 0.01 K/mm3 (0.00-0.031); Immature Granulocyte Percent A 0.2 % (0-0.5); Lymphocytes Absolute Auto 1.52 K/mm3 (0.9-3.2); Mean Corpuscular HGB Conc 33.5 g/dl (32-36); Mean Corpuscular Hemoglobin 31.9 pg (26-34); Mean Corpuscular Volume 95.3 fl (80-100); Mean Platelet Volume 10.1 fl (7.4-10.4); Monocytes Absolute Auto 0.7 K/mm3 (0.1-0.6); Monocytes Percent Auto 11.4 % (2.6-8.5); Neutrophils Absolute Auto 3.8 K/mm3 (1.3-6.7); Neutrophils Percent Auto 60.3 % (45.5-73.1); Platelet Count Result 204 k/mm3 (150-375); Red Blood Count 3.85 M/mm3 (4.2-5.4); Red Cell Distribution Width 12.4 % (11.5-14.5); White Blood Count 6.3 K/mm3 (4.5-10.0)
[2023-01-14 17:41] LABS: Partial Thromboplastin Time 25.3 SECONDS (22.3-36.8)
[2023-01-14 17:44] LABS: Alanine Aminotransferase 24 U/L (6-35); Albumin Level 4.4 g/dL (3.5-5.1); Alkaline Phosphatase 66 U/L (38-126); Anion Gap 8 mmol/L (8-16); Aspartate Amino Transferase 37 U/L (14-36); Bilirubin,Total 0.7 mg/dL (0.2-1.3); Blood Urea Nitrogen 27 mg/dL (7-17); Calcium 9.4 mg/dL (8.4-10.2); Carbon Dioxide 25 mmol/L (22-30); Chloride 103 mmol/L (98-107); Estimated CRCL calculation 28 ml/min; Estimated Glomerular Filt Rate 53; Glucose 106 mg/dL (65-110); Potassium 4.4 mmol/L (3.4-5.0); Sodium 136 mmol/L (137-145)
[2023-01-14 17:55] LABS: NT Pro B Type Natriuretic Pept 2040 pg/mL (19.9-100); Troponin I < 0.012 ng/mL (0.000-0.034)
--- NOTE | 2023-01-14 17:55 | ED.SOB ---
HPI - SOB/Dyspnea General Chief Complaint: Shortness of Breath/Dyspnea Stated Complaint: sob, feet and legs swelling Time Seen by Provider: 01/14/23 17:39 History of Present Illness HPI Narrative: This is an 82-year-old female, with past history of hypertension and paroxysmal atrial tachycardia, who presents the emergency department complaining of dyspnea on exertion and bilateral leg swelling for the past several weeks, worse in the last few days. She denies associated chest pain. She also notes up to 5 episodes of loose stools daily for the past several days. She denies fevers, cough or known sick contacts. Related Data Home Medications Medication Instructions Recorded Confirmed diltiazem HCl 120 mg 120 mg PO DAILY 11/05/22 capsule,extended release 24 hr ergocalciferol (vitamin D2) 10 mcg 10 mcg PO DAILY 11/05/22 (400 unit) tablet fluticasone propionate 50 2 spray intranasal DAILY 11/05/22 mcg/actuation nasal spray,suspension ibuprofen 200 mg tablet 200 mg PO Q6H PRN 11/05/22 Allergies Allergy/AdvReac Type Severity Reaction Status Date / Time acetaminophen [From Vicodin] Allergy Severe Swelling Verified 11/05/22 13:44 of Lip/Tongue/Throat hydrocodone Allergy Severe Anaphylactic Verified 11/05/22 13:44 Shock propoxyphene Allergy Mild NECK Verified 11/05/22 13:44 SWELLING Sulfa (Sulfonamide Allergy Mild Nausea Verified 11/05/22 13:44 Antibiotics) FISH Allergy Severe THROAT Uncoded 11/05/22 13:44 SWELLS CEFUROXIME AXETIL Allergy Intermediate HIVES Uncoded 11/05/22 13:44 SHELLFISH Allergy Unknown Anaphylactic Uncoded 11/05/22 13:44 Shock Review of Systems Review of Systems: CONSTITUTIONAL: Denies fever, chills, or sweats. CARDIOVASCULAR: Palpitations, lower extremity edema denies chest pain, RESPIRATORY: Dyspnea denies cough GASTROINTESTINAL: Loose stools without blood or melena denies abdominal pain, nausea, vomiting, GENITOURINARY: Denies dysuria or hematuria. SKIN: Denies rash or itching. MUSCULOSKELETAL: Denies back pain, joint pain, or myalgia. NEUROLOGIC: Denies headache, numbness, dizziness, or weakness. PSYCHIATRIC: Denies anxiety or depression. [facility] Past Medical History Medical History Abnormal Holter monitor finding Actinic keratosis Basal cell carcinoma of right anabaptist region Benign mole BMI 24.0-24.9, adult BMI 25.0-25.9,adult Chronic allergic rhinitis Diabetes Type II Essential (primary) hypertension Low back pain at multiple sites Major depression, recurrent, chronic OAB (overactive bladder) (08/06/18) RLQ abdominal mass Screening cholesterol level Screening for thyroid disorder Skin Lesion Surgical History Surgical History History of cholecystectomy Hx of cataract surgery Family History Family History Father Family history of lung cancer Sibling Family history of lung cancer Mother Family history of congestive heart failure Cerebrovascular accident Other Diabetes mellitus Family history of cardiovascular disease Family history of chronic obstructive pulmonary disease Hypertension Social History Social History Smoking status: Never smoker Tobacco type: cigars Second hand tobacco smoke exposure: Yes Alcohol intake: current Drinks per week: 10 Substance use: never Substance use type: does not use Lack of Transportation: No Lack of Food: Never True Current Housing: I Have Housing Concerned About Future Housing: No Difficulty Paying Gas/Electric Bills: No Difficulty Paying for Meds: No Currently Unemployed: No Education: High School Diploma/GED Difficulty w/ Childcare or Family Care: No Living arrangements: alone Occupation/[employer]
[2023-01-14] MEDS: dilTIAZem HCl INJ 25 MG/5 ML VIAL 20 MG IV PUSH (18:07)
--- NOTE | 2023-01-14 18:24 | ECG_ITS ---
Measurements Intervals [place] Rate: 128 P: NM: 0 QRS: -37 QRSD: 98 T: 0 QT: 181 QTc: 264 Interpretive Statements ATRIAL FLUTTER/TACHYCARDIA WITH RAPID VENTRICULAR RESPONSE LEFT AXIS DEVIATION DELAYED PRECORDIAL R/S TRANSITION BORDERLINE ST-T WAVE ABNORMALITY- ANTEROLAT/HIGH LAT LEADS ABNORMAL ECG COMPARED TO ECG 01/14/2023 17:21:45 NO SIGNIFICANT CHANGES Electronically Signed On 01-15-2023 6:37:57 CDT by Demarco Gunter D.O.
[2023-01-14] MEDS: METOPROLOL TARTRATE INJ 5 MG/5 ML VIAL IV PUSH ×2 (19:24→23:16)
[2023-01-14] MEDS: METOPROLOL TARTRATE 50 MG TAB PO (19:25)
[2023-01-14] MEDS: APIXABAN 2.5 MG TABLET PO (20:30)
[2023-01-14 20:59] LABS: Troponin I < 0.012 ng/mL (0.000-0.034)
[2023-01-14] MEDS: SODIUM CHLORIDE 0.9% IV 500 ML 50 ML IV CONT (21:38)
--- NOTE | 2023-01-14 22:35 | PC.NURSE ---
Per Doctors verbal orders, 500 ML Normal Saline given as bolus rather than initial order of 50ML/hr.
[2023-01-14] MEDS: SODIUM CHLORIDE 0.9% IV 500 ML 999 ML IV CONT (22:38)
--- NOTE | 2023-01-14 23:15 | PM.IMHP ---
H&P: HPI History of Present Illness Date/Time: 01/14/23 23:15 Chief Complaint: fatigue Narrative: This is an 82-year-old female with past medical history significant for essential hypertension, chronic cervical pain, chronic radiculopathy, chronic back pain. patient presents to the emergency room due to several weeks of feeling fatigued, tired, short of breath at minimal exertion, denies cough, denies leg swelling, no chest pain, no nausea, no vomiting. patient had been to the emergency room x1 recently because of these and returned today. After thorough workup patient was about to be discharged when she had an episode of supraventricular tachycardia with a fever a flutter and rapid ventricular response and decision was made to place the patient in observation for further evaluation management and treatment. Preliminary workup was significant for brain natriuretic peptide 2039, a chest x-ray was reported as: EXAMINATION:? XR chest 1V portable Exam Date/Time:? 01/14/2023 18:05 CDT HISTORY: AFib with RVR ? Comparison:? 03/24/2021 and 02/27/2021. RESULT: Lines, tubes, and devices:? Cholecystectomy clips. Lungs and pleura:? Diffuse reticular opacities with Moe's B lines. No focal consolidation, effusion, or pneumothorax. Left basilar scar/atelectasis. Cardiomediastinal silhouette:? Cardiomegaly, with water bottle configuration of the heart. Other:? No acute osseous or upper abdominal finding. ? IMPRESSION: Mild interstitial edema. Cardiomegaly with heart configuration that can be associated with pericardial effusion. Review of Systems Review of Systems: fatigue, short of breath, lightheaded, decreased stamina. Constitutional: Constitutional: Denies chills, Reports fatigue, Denies fever(s), Denies frequent falls, Reports lethargy, Denies poor appetite and Reports weakness Eyes: Eyes: Denies change in vision ENT: Denies dysphagia and Denies odynophagia Cardiovascular: Cardiovascular: Denies syncope, Reports rapid heart rate, Denies leg edema, Reports lightheadedness, Denies radiating jaw, neck or arm pain, Reports palpitations, Reports dyspnea on exertion, Reports orthopnea and Reports paroxysmal nocturnal dyspnea Respiratory: Respiratory: Denies change in phlegm color, Denies chest congestion, Denies cough and Denies excessive phlegm production Gastrointestinal: Gastrointestinal: Denies abdominal pain, Denies dyspepsia, Denies heartburn, Reports diarrhea, Denies nausea and Denies vomiting Genitourinary: Genitourinary: Denies dysuria Musculoskeletal: Musculoskeletal: Denies myalgias and Denies muscle cramps Integumentary/Breasts: Skin/Breast: Denies rash Neurologic: Denies syncope, Denies focal weakness and Denies Sensory deficit (Neuro) Psychiatric: Psychiatric: Reports no additional psychiatric complaints and Reports as per HPI Endocrine: Endocrine: Denies cold intolerance, Denies flushing, Denies heat intolerance, Denies polyphagia, Denies polydipsia and Denies palpitations Hematologic/Lymphatic: Hematologic/Lymphatic: Reports no additional hematologic/lymphatic complaints and Reports as per HPI Allergic/Immunologic: Allergic/Immunologic: Reports no additional allergic/immunologic complaints and Reports as per HPI PMFSH Past Medical History Medical History Abnormal Holter monitor finding Actinic keratosis Basal cell carcinoma of right mormonism region Benign mole BMI 24.0-24.9, adult BMI 25.0-25.9,adult Chronic allergic rhinitis Diabetes Type II Essential (primary) hypertension Low back pain at multiple sites Major depression, recurrent, chronic OAB (overactive bladder) (08/06/18) RLQ abdominal mass Screening cholesterol level Screening for thyroid disorder Skin Lesion Surgical History Surgical History History of cholecystectomy Hx of cataract surgery Family History Family
--- NOTE | 2023-01-14 23:22 | ECG_ITS ---
Measurements Intervals [place] Rate: 89 P: OR: 0 QRS: -32 QRSD: 98 T: 199 QT: 397 QTc: 485 Interpretive Statements ATRIAL FLUTTER/TACHYCARDIA LEFT AXIS DEVIATION BORDERLINE R WAVE PROGRESSION, ANTERIOR LEADS VOLTAGE CRITERIA FOR LVH MINIMAL Q WAVES- HIGH LATERAL LEADS BORDERLINE T WAVE ABNORMALITY- DIFFUSE LEADS ABNORMAL ECG COMPARED TO ECG 01/14/2023 17:21:45 HEART RATE HAS DECREASED Electronically Signed On 01-16-2023 18:54:54 CDT by Demarco Gunter D.O.
[2023-01-15] VITALS (26 sets, daily range): BP systolic 97–139; BP diastolic 45–96; PULSE 88–136; RESP 11–22; TEMP 35.7–36.6; O2SAT 93–97; BMI 26.1
--- NOTE | 2023-01-15 | ECHO_ITS ---
Patient Info Name: Lance Vargas Age: 82 years : 1940 Gender: Female Ht: 60 in Wt: 133 lbs BSA: 1.61 m2 HR: 97 bpm BP: 139 / 79 mmHg Heart Rhythm: Atrial Fibrillation Technical Quality: Fair Exam Date: 01/15/2023 2:15 PM Exam Location: [facility] Exam Room: Patient Status: Inpatient Admit Date: 01/14/2023 Staff Ordering Physician: Felicitas Brewer MD Attending Provider: Felicitas Brewer MD Referring Physician: Osman SUOTH; Exam Type: CA echo doppler color flow Study Info Indications - AFIB AFLUTTER RVR Complete two-dimensional, color flow and Doppler transthoracic echocardiogram is performed. Summary 1. Complete two-dimensional, color flow and Doppler transthoracic echocardiogram is performed. 2. Left ventricular chamber dimension is normal. 3. Left ventricular systolic function is moderately reduced, estimated at 30-35%. 4. There is mildly increased left ventricular wall thickness. 5. Left atrial chamber dimension is severely enlarged. 6. Right atrial chamber dimension is severely enlarged. 7. The mitral valve has thickened leaflets. 8. The mitral valve annulus is moderately calcified. 9. There is mild mitral valve regurgitation. 10. There is moderate tricuspid valve regurgitation. 11. There is small anterior pericardial effusion. Left Ventricle Left ventricular chamber dimension is normal. Left ventricular systolic function is moderately reduced, estimated at 30-35%. There is mildly increased left ventricular wall thickness. Right Ventricle Right ventricular chamber dimension is normal. Left Atria Left atrial chamber dimension is severely enlarged. Right Atria Right atrial chamber dimension is severely enlarged. Atrial Septum Intact interatrial septum visualized by color flow imaging. Aortic Valve The aortic valve is probable trileaflet. There is mild aortic valve sclerosis. There is no aortic valve stenosis. There is no aortic valve regurgitation. Pulmonic Valve The pulmonic valve is not well visualized. There is trace pulmonic regurgitation. Mitral Valve The mitral valve has thickened leaflets. There is mild mitral valve regurgitation. The mitral valve annulus is moderately calcified. Tricuspid Valve There is moderate tricuspid valve regurgitation. Pericardium/Pleural There is small anterior pericardial effusion. Inferior Vena Cava Dilated inferior vena cava with no collapse upon inspiration consistent with elevated right atrial pressure, 15 mmHg. Aorta The aortic root size at the sinus of Valsalva is normal. Left Ventricular Outflow Tract Name Value Normal LVOT 2D LVOT Diameter 2.0 cm LVOT Doppler LVOT Peak Gradient 4 mmHg LVOT Mean Gradient 2 mmHg LVOT VTI 17 cm LVOT VTI/AV VTI Ratio 0.8 LVOT Stroke Volume 53 ml LVOT CO 13.3 l/min LVOT CI 8.2 l/min/m2 Pulmonic Valve Name Value Normal
[2023-01-15] MEDS: dilTIAZem 100 MG/100 ML 100 MG/100 ML BAG IV CONT (00:53)
--- NOTE | 2023-01-15 01:45 | ADMGEN ---
This patient, Lance Vargas, was admitted to IMU Room 206-02 at 0135 on 01/15/2023. Patient/family oriented to hospital policies and general routines including ID bracelet, bed and alarms, visiting hours, pain management, procedures, bathroom and other care routines, personal items, smoking policy, room service/diet, and visiting hours. Information on how to activate the Rapid Response Team has been discussed. Patient/Family are encouraged to report perceived risks to care and to ask questions if they do not understand what they are told or what they should do.
[2023-01-15 05:12] LABS: Alanine Aminotransferase 51 U/L (6-35); Albumin Level 3.7 g/dL (3.5-5.1); Alkaline Phosphatase 60 U/L (38-126); Anion Gap 5 mmol/L (8-16); Aspartate Amino Transferase 94 U/L (14-36); Blood Urea Nitrogen 20 mg/dL (7-17); Calcium 8.5 mg/dL (8.4-10.2); Carbon Dioxide 25 mmol/L (22-30); Chloride 107 mmol/L (98-107); Estimated CRCL calculation 40 ml/min; Estimated Glomerular Filt Rate > 60; Glucose 92 mg/dL (65-110); Potassium 4.2 mmol/L (3.4-5.0); Sodium 137 mmol/L (137-145)
[2023-01-15 05:20] LABS: Appearance Urine Clear (Clear); Bilirubin Urine Negative (Negative); Blood Urine Negative (Negative); Color Urine Yellow (Yellow); Glucose Urine UA Negative (Negative); Ketones Urine Negative (Negative); Leukocyte Esterase Ur Negative LEU/UL (Negative); Nitrate Urine Negative (Negative); Protein Urine Negative (Negative); Specific Grav Ur 1.011 (1.001-1.035); Urobilinogen Urine 0.2 mg/dL (<2.0); pH Urine 5.5 (5.0-9.0)
[2023-01-15 05:33] LABS: Troponin I < 0.012 ng/mL (0.000-0.034)
[2023-01-15 05:34] LABS: Add Urine Microscopic? NO
[2023-01-15] MEDS: VITAMIN E 400 UNIT CAPSULE 800 UNIT PO (10:31)
[2023-01-15] MEDS: FLUTICASONE PROPIONATE 0.05% NA SPR 16 GM BTL (*BKC) 2 SPRAY NASAL (10:32)
[2023-01-15] MEDS: lisinopriL 20 MG TABLET PO (10:32)
[2023-01-15] MEDS: MULTIVITAMINS /C LUTEIN (CENTRUM SILVER) TABLET *BKC 1 TAB PO (10:32)
[2023-01-15] MEDS: MENTHOL 10% / METHYL SALICYLATE 15% 57 GM TUBE 1 APPLIC TOPICAL (10:33)
--- NOTE | 2023-01-15 11:07 | PM.IMPN ---
Progress Note: A&P Assessment and Plan (1) Acute dyspnea: Code(s): R06.00 - Dyspnea, unspecified Status: Acute Assessment and Plan: admit to telemetry unit a fib/aflutter with RVR echocardiogram in a.m. cardiology consult in a.m. (2) Atrial flutter with rapid ventricular response: Code(s): I48.92 - Unspecified atrial flutter Status: Acute Assessment and Plan: Cardiology consult. Currently on Cardizem drip. Heart rate is up and down. Await further recommendations per Cardiology. (3) Chronic neck pain: Code(s): M54.2 - Cervicalgia; G89.29 - Other chronic pain Status: Acute Assessment and Plan: supportive care Tylenol as needed Subjective Date/time seen: 01/15/23 11:07 Interval history: No new complaints. Heart rate is elevated. Blood pressure is okay. Appears to be breathing better. Exam Narrative: Patient is laying in a stretcher Const: General: comfortable, no acute distress, well developed, alert, awake, average body habitus and thin Nutritional Appearance: average body habitus and thin Orientation/consciousness: patient oriented x3 HENMT: Head: normal to inspection, normocephalic and atraumatic Ears: hearing grossly normal bilaterally Face/Nose/Sinus: normal facial exam Face and sinus: normal facial exam Eyes: General: appearance normal, both eyes and all related structures Pupils: Equal, round and reactive pupils present EOM: EOMs intact bilaterally Neck: Neck: full ROM, no lymphadenopathy and no JVD Thyroid: thyroid normal Lymphatic: no lymphadenopathy noted Resp: Effort & Inspection: normal respiratory effort and able to speak in complete sentences Auscultation: clear to auscultation bilaterally and diminished lung sounds Cardio: Jugular venous distension: no JVD Rate: regular rate Rhythm: regular rhythm Heart sounds: S1 normal heart sound present and S2 normal heart sound present : General: Yes deferred Skin: Rashes: no rashes Wounds: no wounds Neuro: General: patient oriented x3, CN's II-XI intact bilaterally and Unable to assess gait Cranial nerves: Yes CN's II-XII intact bilaterally and Yes Equal, round and reactive pupils present Cognition (Neuro): normal cognition Speech: normal speech Gait exam (Neuro): Normal gait present and Unable to assess gait Motor exam (neuro): 5/5 motor strength present throughout Sensory Exam: No Sensory deficit (Neuro) Extrem: General: normal to inspection, full ROM, no joint enlargement and no pedal edema Objective Data Vital Signs Vital Signs: Vital Signs - 24 hr 01/14/23 17:19 01/14/23 18:10 01/14/23 18:12 Temperature 98.9 F Pulse Rate 137 H 101 H Respiratory Rate 18 20 Blood Pressure 126/68 115/77 Pulse Oximetry 97 97 97 Oxygen Delivery Room Air Room Air 01/14/23 19:24 01/14/23 19:25 01/14/23 19:16 Temperature Pulse Rate 134 H 132 H 107 H Respiratory Rate 29 H Blood Pressure 113/82 Pulse Oximetry 96 Oxygen Delivery 01/14/23 19:30 01/14/23 19:45 01/14/23 19:46 Temperature Pulse Rate 93 88 88 Respiratory Rate 22 H 22 H 28 H Blood Pressure 115/67 Pulse Oximetry 98 97 97 Oxygen Delivery 01/14/23 20:22 01/14/23 20:41 01/14/23 20:45 Temperature Pulse Rate 97 104 H 103 H Respiratory Rate 27 H 17 18 Blood Pressure Pulse Oximetry 96 Oxygen Delivery 01/14/23 21:11 01/14/23 21:20 01/14/23 21:30 Temperature Pulse Rate 130 H 130 H 130 H Respiratory Rate 21 H 16 17 Blood Pressure Pulse Oximetry Oxygen Delivery 01/14/23 23:16 01/15/23 00:53 01/14/23 22:15 Temperature Pulse Rate 128 H 129 H Respiratory Rate Blood Pressure 129/91 H Pulse Oximetry 99 Oxygen Delivery 01/14/23 22:31 01/14/23 22:52 01/14/23 23:11 Temperature Pulse Rate 129 H 128 H Respiratory Rate 14 18 Blood Pressure Pulse Oximetry 97 97 95 Oxygen Delivery 01/14/23 23:15 01/14
--- NOTE | 2023-01-15 12:54 | PM.CNCAR ---
Assessment and Plan Assessment and plan (1) Atrial flutter with rapid ventricular response: Code(s): I48.92 - Unspecified atrial flutter Status: Acute Assessment and Plan: New onset a fib/a flutter with rapid ventricular response being managed with IV diltiazem. Discussed rate control versus rhythm control and will pursue a rate control strategy as she has been having symptoms for a couple of weeks and likely has been in atrial fibrillation for that period of time without anticoagulation. She takes diltiazem at home. Will increase her p.o. dose of diltiazem and discontinue diltiazem drip. Her CHADS2 Vasc score is 3 (age, female gender, hypertension). Systemic anticoagulation is indicated. Will start on apixaban 2.5 mg b.i.d. (dose adjusted for age, weight). Monitor H&H. Echocardiogram has been ordered and will be reviewed. Further recommendations to follow. Obviously, if she has any LV systolic dysfunction a different agent aside from diltiazem will need to be selected for management of her arrhythmia. History of Present Illness History of Present Illness Consult date/time: 01/15/23 12:54 Requesting physician: Kp Hanna MD Consult reason: Other (atrial flutter) Reason For Visit: new onset atrial flutter Narrative: Lance Vargas is an 82-year-old female who is an established patient of Dr. Gill with a history of paroxysmal SVT. This is a patient who we are being asked to see for new onset atrial fibrillation. Patient has a history of palpitations has known paroxysmal supraventricular tachycardia but no known history of atrial fibrillation. She states that over the past couple of weeks she has been experiencing frequent palpitations as well as lower extremity swelling and shortness of breath. Her initial EKG in the emergency department showed atrial flutter with a rate in the 130s. She was placed on a diltiazem drip and admitted for further evaluation and treatment. Telemetry now showing atrial fibrillation with rapid ventricular response, rate in the 130s. Her heart rate has been intermittently somewhat controlled on a low dose of IV diltiazem. She does take p.o. diltiazem at home. Currently, she is not complaining of any palpitations, chest pain, shortness of breath. Her swelling has resolved since she entered the hospital. Review of Systems Review of Systems: All systems reviewed & are unremarkable except as noted in HPI and below PMFSH Past Medical History Medical History Abnormal Holter monitor finding Actinic keratosis Basal cell carcinoma of right roman catholic region Benign mole BMI 24.0-24.9, adult BMI 25.0-25.9,adult Chronic allergic rhinitis Diabetes Type II Essential (primary) hypertension Low back pain at multiple sites Major depression, recurrent, chronic OAB (overactive bladder) (08/06/18) RLQ abdominal mass Screening cholesterol level Screening for thyroid disorder Skin Lesion Surgical History Surgical History History of cholecystectomy Hx of cataract surgery Family History Family History Father Family history of lung cancer Diabetes mellitus Sibling Family history of lung cancer Mother Family history of congestive heart failure Cerebrovascular accident Other Family history of cardiovascular disease Family history of chronic obstructive pulmonary disease Hypertension Social History Social History Smoking status: Never smoker Tobacco type: cigars Second hand tobacco smoke exposure: Yes Alcohol intake: current Drinks per week: 10 Substance use: never Substance use type: does not use Lack of Transportation: No Lack of Food: Never True Current Housing: I Have Housing Concerned About Future Housi
[2023-01-15] MEDS: dilTIAZem HCL 60 MG TABLET PO ×2 (17:35→23:13)
[2023-01-15] MEDS: APIXABAN 2.5 MG TABLET PO (21:23)
[2023-01-16] VITALS (18 sets, daily range): BP systolic 103–129; BP diastolic 54–74; PULSE 93–139; RESP 16–22; TEMP 35.9–36.7; O2SAT 96–99
[2023-01-16] MEDS: dilTIAZem HCL 60 MG TABLET PO ×2 (05:22→11:42)
[2023-01-16] MEDS: FLUTICASONE PROPIONATE 0.05% NA SPR 16 GM BTL (*BKC) 2 SPRAY NASAL (08:27)
[2023-01-16] MEDS: APIXABAN 2.5 MG TABLET PO ×2 (08:27→20:22)
[2023-01-16] MEDS: lisinopriL 20 MG TABLET PO (08:28)
[2023-01-16] MEDS: MULTIVITAMINS /C LUTEIN (CENTRUM SILVER) TABLET *BKC 1 TAB PO (08:28)
[2023-01-16] MEDS: VITAMIN E 400 UNIT CAPSULE 800 UNIT PO (08:28)
[2023-01-16] MEDS: METOPROLOL SUCCINATE EXT REL 50 MG TABCR PO (10:57)
--- NOTE | 2023-01-16 12:49 | PM.PNCARD ---
Progress Note: A&P Assessment and Plan (1) Atrial flutter with rapid ventricular response: Code(s): I48.92 - Unspecified atrial flutter Status: Acute Assessment and Plan: New onset atrial fibrillation / atrial flutter with rapid ventricular response being managed Cardizem.? Discussed rate control versus rhythm control and will pursue a rate control strategy as she has been having symptoms for a couple of weeks and likely has been in atrial fibrillation for that period of time without anticoagulation.? She takes diltiazem at home.? Increased her Diltiazem. Her CHADS2 Vasc score is 3 (age, female gender, hypertension).? Systemic anticoagulation is indicated.? Started on apixaban 2.5 mg b.i.d. (dose adjusted for age, weight). Will start Metoprolol for additional rate control as well. Monitor H&H.? Echocardiogram has been ordered and will be reviewed.? Further recommendations to follow.? Obviously, if she has any LV systolic dysfunction a different agent aside from diltiazem will need to be selected for management of her arrhythmia. Subjective Date/time seen: 01/16/23 12:49 Interval history: Reason for visit: Atrial fibrillation / flutter with RVR. HPI: Lance Vargas is an 82-year-old female who is an established patient of Dr. Gill with a history of paroxysmal SVT.? This is a patient who we are being asked to see for new onset atrial fibrillation.? Patient has a history of palpitations has known paroxysmal supraventricular tachycardia but no known history of atrial fibrillation.? She states that over the past couple of weeks she has been experiencing frequent palpitations as well as lower extremity swelling and shortness of breath.? Her initial EKG in the emergency department showed atrial flutter with a rate in the 130s.? She was placed on a diltiazem drip and admitted for further evaluation and treatment.? Telemetry now showing atrial fibrillation with rapid ventricular response, rate in the 130s.? Her heart rate has been intermittently somewhat controlled on a low dose of IV diltiazem.? She does take p.o. diltiazem at home.? Currently, she is not complaining of any palpitations, chest pain, shortness of breath.? Her swelling has resolved since she entered the hospital. Date of service 01/16: No acute events overnight. Has occasional RVR. No symptoms this morning, feeling well. Review of Systems Review of Systems: 8 point ROS obtained. Negative, unless stated in HPI. Exam Const: General: comfortable and no acute distress HENMT: Mouth: Yes moist mucous membranes Eyes: General: appearance normal, both eyes and all related structures Sclera: sclerae normal Neck: Neck: supple Resp: Effort & Inspection: normal respiratory effort Auscultation: clear to auscultation bilaterally Cardio: Rhythm: abnormal rhythm irregularly irregular GI: GI Palp: Yes Soft to palpation and No Tenderness to palpation present (GI) Neuro: Speech: normal speech Psych: Mental Status: mental status grossly normal Affect: normal affect Objective Data Vital Signs Vital Signs: Vital Signs - 24 hr 01/15/23 14:00 01/15/23 16:00 01/15/23 16:00 Temperature Pulse Rate 102 H 91 Respiratory Rate Blood Pressure Pulse Oximetry Oxygen Delivery Room Air 01/15/23 16:26 01/15/23 18:00 01/15/23 20:00 Temperature 36.1 C L 36.6 C Pulse Rate 136 H 118 H 136 H Respiratory Rate 16 20 Blood Pressure 97/45 L 112/74 Pulse Oximetry 96 95 Oxygen Delivery 01/15/23 20:00 01/15/23 20:00 01/15/23 22:00 Temperature Pulse Rate 136 H 136 H 135 H Respiratory Rate 20 Blood Pressure Pulse Oximetry 95 Oxygen Delivery Room Air 01/15/23 23:09 01/15/23 23:27 01/15/23 23:27 Temperature 36.4 C Pulse Rate 130 H 130 H 130 H Respiratory Rate 18 18 Blood Pressure 132/85 Pulse Oximetry 97 97 Oxygen Delivery Room Air 01/16/23 02:00 01/16/23 04:00 01/16/23 04:00 Temperature Pulse Rate 106 H 114 H 11
[2023-01-16] MEDS: AMIODARONE 360 MG/D5W 200 ML 360 MG/200 ML BAG 33.33 MG IV CONT (14:17)
--- NOTE | 2023-01-16 14:42 | PC.NURSE ---
Dr Kapoor has ordered amiodarone at 1 mg for 6 hrs IV then 0.5 mg/ 16.667 there after due to HR sustaining in the high to low mid 100s pt did c/o chest pressure to left side Dr Kapoor made aware and stated she thinks it is the a-fib/a-flatter and to just monitor her for now, MD aware of heat HR at this time, pt daughter Ni made aware of all new orders patient asked this nurse to give updates.
--- NOTE | 2023-01-16 15:48 | PCCCNOTE ---
On 01/16/23, the student, [Lila Saleh ], provided care and completed [facility] documentation on this patient. I have reviewed the student's documentation and agree with the findings.
--- NOTE | 2023-01-16 17:20 | WPDPN ---
Progress Note: A&P Assessment and Plan (1) Acute dyspnea: Code(s): R06.00 - Dyspnea, unspecified Status: Acute Assessment and Plan: admit to telemetry unit a fib/aflutter with RVR echocardiogram in a.m. cardiology consult in a.m. 01/16/2023 interval history: 82-year-old female presented with atrial fibrillation with RVR being treated with diltiazem, duration of atrial fibrillation is unknown most likely couple of weeks and patient had not been on anticoagulation cardiology has decided to medically manage patient with rate control and once patient is fully anticoagulated may recommended DC cardioversion, patient states feeling much compared to when she arrived denies any chest pain shortness of breath palpitation (2) Atrial flutter with rapid ventricular response: Code(s): I48.92 - Unspecified atrial flutter Status: Acute Assessment and Plan: Cardiology consult. Currently on Cardizem drip. Heart rate is up and down. Await further recommendations per Cardiology. (3) Chronic neck pain: Code(s): M54.2 - Cervicalgia; G89.29 - Other chronic pain Status: Acute Assessment and Plan: supportive care Tylenol as needed Subjective Date/time seen: 01/16/23 17:20 Interval history: 01/16/2023 interval history: 82-year-old female presented with atrial fibrillation with RVR being treated with diltiazem, duration of atrial fibrillation is unknown most likely couple of weeks and patient had not been on anticoagulation cardiology has decided to medically manage patient with rate control and once patient is fully anticoagulated may recommended DC cardioversion, patient states feeling much compared to when she arrived denies any chest pain shortness of breath palpitation Review of Systems Review of Systems: fatigue, short of breath, lightheaded, decreased stamina. Exam Narrative: Patient is comfortable, NAD HEENT: eyes are clear and none icteric LUNGS: CTA HEART: Irregularly irregular ABD: Not distended Lower extremities: no edema SKIN: nonjaundiced Neuro: grossly intact. Objective Data Vital Signs Vital Signs: Vital Signs - 24 hr 01/15/23 18:00 01/15/23 20:00 01/15/23 20:00 Temperature 97.8 F Pulse Rate 118 H 136 H 136 H Respiratory Rate 20 Blood Pressure 112/74 Pulse Oximetry 95 Oxygen Delivery 01/15/23 20:00 01/15/23 22:00 01/15/23 23:09 Temperature 97.6 F Pulse Rate 136 H 135 H 130 H Respiratory Rate 20 18 Blood Pressure 132/85 Pulse Oximetry 95 97 Oxygen Delivery Room Air 01/15/23 23:27 01/15/23 23:27 01/16/23 02:00 Temperature Pulse Rate 130 H 130 H 106 H Respiratory Rate 18 Blood Pressure Pulse Oximetry 97 Oxygen Delivery Room Air 01/16/23 04:00 01/16/23 04:00 01/16/23 04:00 Temperature 97.8 F Pulse Rate 114 H 114 H 93 Respiratory Rate 18 20 Blood Pressure 103/54 L Pulse Oximetry 97 98 Oxygen Delivery Room Air 01/16/23 06:00 01/16/23 08:16 01/16/23 08:00 Temperature 96.7 F L Pulse Rate 122 H 133 H 136 H Respiratory Rate 18 Blood Pressure 108/69 Pulse Oximetry 96 Oxygen Delivery 01/16/23 08:00 01/16/23 10:00 01/16/23 10:57 Temperature Pulse Rate 139 H 135 H Respiratory Rate Blood Pressure Pulse Oximetry 98 Oxygen Delivery Room Air 01/16/23 12:07 01/16/23 12:00 01/16/23 12:00 Temperature 96.9 F L Pulse Rate 115 H 133 H Respiratory Rate 18 Blood Pressure 105/74 Pulse Oximetry 97 97 Oxygen Delivery Room Air 01/16/23 14:00 01/16/23 14:17 01/16/23 16:00 Temperature Pulse Rate 101 H 96 Respiratory Rate Blood Pressure Pulse Oximetry 97 Oxygen Delivery Room Air 01/16/23 16:00 01/16/23 16:00 Temperature 98.1 F Pulse Rate 131 H 130 H Respiratory Rate 22 H Blood Pressure 106/70 Pulse Oximetry 96 Oxygen Delivery Intake/Output Intake/Output: Intake & Output 01/13/23 01/14/23
[2023-01-16] MEDS: AMIODARONE 360 MG/D5W 200 ML 360 MG/200 ML BAG 16.67 MG IV CONT (20:22)
[2023-01-17] VITALS (24 sets, daily range): BP systolic 93–146; BP diastolic 57–100; PULSE 63–124; RESP 10–20; TEMP 36.6–36.9; O2SAT 92–100
[2023-01-17] MEDS: AMIODARONE 360 MG/D5W 200 ML 360 MG/200 ML BAG 16.67 MG IV CONT (08:13)
[2023-01-17] MEDS: APIXABAN 2.5 MG TABLET PO (08:15)
[2023-01-17] MEDS: lisinopriL 20 MG TABLET PO (08:15)
[2023-01-17] MEDS: VITAMIN E 400 UNIT CAPSULE 800 UNIT PO (08:16)
[2023-01-17] MEDS: MULTIVITAMINS /C LUTEIN (CENTRUM SILVER) TABLET *BKC 1 TAB PO (08:16)
[2023-01-17] MEDS: METOPROLOL SUCCINATE EXT REL 50 MG TABCR PO (08:16)
[2023-01-17] MEDS: FLUTICASONE PROPIONATE 0.05% NA SPR 16 GM BTL (*BKC) 2 SPRAY NASAL (08:17)
--- NOTE | 2023-01-17 09:34 | ECG_ITS ---
Measurements Intervals [place] Rate: 122 P: [place]: 0 QRS: -42 QRSD: 101 T: 94 QT: 357 QTc: 509 Interpretive Statements ATRIAL FLUTTER/TACHYCARDIA WITH RAPID VENTRICULAR RESPONSE LEFT AXIS DEVIATION NONSPECIFIC ST & T-WAVE ABNORMALITY- ANTEROLAT/HIGH LAT LEADS ABNORMAL ECG COMPARED TO ECG 01/14/2023 23:30:33 NO SIGNIFICANT CHANGES Electronically Signed On 01-17-2023 10:52:18 CDT by Demarco Gunter D.O.
[2023-01-17] MEDS: PERFLUTREN LIPID MICROSPHERES 1.5 ML VIAL DILUTED TO 10 ML TOTAL VOLUME (13:15)
--- NOTE | 2023-01-17 13:44 | ECG_ITS ---
Measurements Intervals [place] Rate: 67 P: 74 [place]: 201 QRS: -39 QRSD: 106 T: -89 QT: 442 QTc: 469 Interpretive Statements SINUS RHYTHM ATRIAL PREMATURE COMPLEX DELAYED PRECORDIAL R/S TRANSITION BORDERLINE T WAVE ABNORMALITY- DIFFUSE LEADS BORDERLINE ECG COMPARED TO ECG 01/17/2023 10:19:57 SINUS RHYTHM NOW PRESENT Electronically Signed On 01-17-2023 14:15:02 CDT by Demarco Gunter D.O.
--- NOTE | 2023-01-17 13:52 | P.PCNTEECA_ITS ---
ALEE with Cardioversion Date of procedure: 01/17/23 Procedure Type: Date of Procedure: 01/17/2023 Brief History Of Present Illness: Patient is an 82 year old female who is referred for ALEE-guided cardioversion. Procedure In Detail: After verbal and written informed consent was obtained, the patient risks, benefits, and alternatives explained in detail. The patient agreed to proceed with the plan of care as outlined above.?The patient was evaluated at bedside in the [facility] procedure room.?The posterior oropharynx, neck, and jaw angle all within normal limits on examination. Lungs were clear to auscultation. See pre-sedation note for further details. The patient was then placed in the appropriate 30 to 45 degree angle supine position at a slight left lateral decubitus position.?Patient was monitored throughout the study with telemetry, oxygen saturation, end-tidal CO2 monitoring, blood pressure, heart rate, and respirations.? The posterior hypopharynx was then locally anesthetized using repeated administration of Hurricaine spray as well as gargled viscous lidocaine.? After local anesthetic of the posterior hypopharynx was achieved and the oral bite block placed, moderate sedation was administered.? After confirmation of adequate moderate sedation, the transesophageal echocardiogram probe was advanced through the oral bite block into the posterior hypopharynx and into the esophagus.? Multiple, multiplanar echocardiographic images were obtained in multiple standard re- projections.? At the conclusion of the study, the transesophageal echocardiogram probe was removed easily and without complication.? The patient tolerated the procedure well without difficulty.? Moderate Sedation/Anesthesia administration: Patient reports no prior problems with sedation/anesthesia. Please see pre-sedation noted for physical examination documentation. As noted above, after adequate local anesthesia of the posterior hypopharynx was achieved, a total of 3mg intravenous Versed and a total of 100mcg intravenous Fentanyl in multiple divided doses was administered for moderate sedation.? Sedation start time was 13:09 and end time was 13:43 for a total intra-service/procedure face-face time of?34 minutes.? Sedation was administered by a qualified/certified observer?Naheed Taylor RN under my supervision with intra-procedure [id number] observation and management throughout the entirety of the proced ure.? There were no other issues or complications and patient tolerated the procedure well. See post-anesthesia documentation. FINDINGS: LEFT VENTRICLE: Left ventricular size is normal. Left ventricular systolic function is at least moderately reduced. LEFT ATRIUM: Smoke noted, no thrombus. LEFT ATRIAL APPENDAGE: Anatomically normal structure with prominent pectinate m uscles. Smoke noted. Definity was administered for better opacification of the left atrial appendage to definitely rule out thrombus. No thrombus or mass. AORTA: Mild atherosclerotic plaque noted. CARDIOVERSION: Patient in atrial flutter with RVR at the time of study. After completion of ALEE, synchronized cardioversion was performed with pads placed in an AP position. 1 shock was administered at 200 joules. Patient converted to sinus rhythm. Post-procedure EKG showed sinus rhythm with PACs. Complications: None This dictation may have been done utilizing a voice recognition system.? Attempts have been made to correct errors. However, there may be uncorrected grammatical, spelling, and recognition errors present.
--- NOTE | 2023-01-17 14:10 | PM.PNCARD ---
Progress Note: A&P Assessment and Plan (1) Atrial flutter with rapid ventricular response: Code(s): I48.92 - Unspecified atrial flutter Status: Acute Assessment and Plan: New onset atrial fibrillation / atrial flutter with rapid ventricular response. Remained in RVR despite attempts at rate control. Echo shows LVEF is moderately reduced. Therefore, Diltiazem discontinued and Amiodarone drip started. Given reduced LVEF, recommend rhythm control strategy with cardioversion with the patient. Discussed ALEE guided DCCV. Patient agreeable. ALEE-guided DCCV done 01/17. Converted to sinus rhythm after 1 shock. Will stop Amiodarone drip and start Amiodarone 400mg QD. Continue Toprol. Continue Eliquis. (2) Cardiomyopathy: Code(s): I42.9 - Cardiomyopathy, unspecified Status: Acute Assessment and Plan: Echo shows moderately reduced LVEF, suspect tachycardia induced as it appears patient has had atrial fibrillation symptoms for some time now. AFIB management as above. Continue Lisinopril. Continue Toprol. Start Jardiance and Aldactone tomorrow. Plan Patient can be discharged home later this afternoon. Recommendations were discussed with the Hospitalist. Subjective Date/time seen: 01/17/23 14:10 Interval history: Reason for visit: Atrial fibrillation / flutter with RVR. HPI: Lance Vargas is an 82-year-old female who is an established patient of Dr. Gill with a history of paroxysmal SVT.? This is a patient who we are being asked to see for new onset atrial fibrillation.? Patient has a history of palpitations has known paroxysmal supraventricular tachycardia but no known history of atrial fibrillation.? She states that over the past couple of weeks she has been experiencing frequent palpitations as well as lower extremity swelling and shortness of breath.? Her initial EKG in the emergency department showed atrial flutter with a rate in the 130s.? She was placed on a diltiazem drip and admitted for further evaluation and treatment.? Telemetry now showing atrial fibrillation with rapid ventricular response, rate in the 130s.? Her heart rate has been intermittently somewhat controlled on a low dose of IV diltiazem.? She does take p.o. diltiazem at home.? Currently, she is not complaining of any palpitations, chest pain, shortness of breath.? Her swelling has resolved since she entered the hospital. Date of service 01/16: No acute events overnight. Has occasional RVR. No symptoms this morning, feeling well. Date of service 01/17: Amiodarone drip started yesterday. Dilt discontinued as echo showed reduced LVEF. Remains in atrial flutter with RVR this morning. Review of Systems Review of Systems: 8 point ROS obtained. Negative, unless stated in HPI. Exam Const: General: comfortable and no acute distress HENMT: Mouth: Yes moist mucous membranes Eyes: General: appearance normal, both eyes and all related structures Sclera: sclerae normal Neck: Neck: supple Resp: Effort & Inspection: normal respiratory effort Auscultation: clear to auscultation bilaterally Cardio: Rate: tachycardic Rhythm: abnormal rhythm irregularly irregular GI: GI Palp: Yes Soft to palpation and No Tenderness to palpation present (GI) Neuro: Speech: normal speech Psych: Mental Status: mental status grossly normal Affect: normal affect Objective Data Vital Signs Vital Signs: Vital Signs - 24 hr 01/16/23 14:17 01/16/23 16:00 01/16/23 16:00 Temperature 36.7 C Pulse Rate 96 131 H Respiratory Rate 22 H Blood Pressure 106/70 Pulse Oximetry 97 96 Oxygen Delivery Room Air Oxygen Flow Rate 01/16/23 16:00 01/16/23 18:00 01/16/23 19:42 Temperature 36.6 C Pulse Rate 130 H 130 H 127 H Respiratory Rate 20 Blood Pressure 129/71 Pulse Oximetry 97 Oxygen Delivery Oxygen Flow Rate 01/16/23 20:22 01/16/23 20:00 01/16/23 20:00 Temperature Pulse Rate 128 H 126 H 126 H Respiratory Ra
[2023-01-17] MEDS: AMIODARONE HCL 200 MG TABLET 400 MG PO (15:54)
--- NOTE | 2023-01-17 16:34 | PM.DS ---
DS: Admitting Diagnosis Discharge Date 01/17/2023 Admitting Diagnosis Fatigue DS: Discharge Diagnosis Discharge Diagnosis (1) Acute dyspnea: Code(s): R06.00 - Dyspnea, unspecified Status: Acute Assessment and Plan: admit to telemetry unit a fib/aflutter with RVR echocardiogram in a.m. cardiology consult in a.m. 01/16/2023 interval history: 82-year-old female presented with atrial fibrillation with RVR being treated with diltiazem, duration of atrial fibrillation is unknown most likely couple of weeks and patient had not been on anticoagulation cardiology has decided to medically manage patient with rate control and once patient is fully anticoagulated may recommended DC cardioversion, patient states feeling much compared to when she arrived denies any chest pain shortness of breath palpitation (2) Atrial flutter with rapid ventricular response: Code(s): I48.92 - Unspecified atrial flutter Status: Acute Assessment and Plan: Cardiology consult. Currently on Cardizem drip. Heart rate is up and down. Await further recommendations per Cardiology. (3) Chronic neck pain: Code(s): M54.2 - Cervicalgia; G89.29 - Other chronic pain Status: Acute Assessment and Plan: supportive care Tylenol as needed DS: Summary Hospital Course Reason for hospitalization: fatigue Narrative: ?This is an 82-year-old female with past medical history significant for essential hypertension, chronic cervical pain, chronic radiculopathy, chronic back pain. patient presents to the emergency room due to several weeks of feeling fatigued, tired, short of breath at minimal exertion, denies cough, denies leg swelling, no chest pain, no nausea, no vomiting. patient had been to the emergency room x1 recently because of these and returned today.? After thorough workup patient was? about to be discharged when she had an episode of? supraventricular tachycardia with a fever a flutter and rapid ventricular response and decision was made to place the patient in observation for further evaluation management and treatment.? Preliminary workup was significant for brain natriuretic peptide 2039,? a chest x-ray was reported as: Hospital Course: 82-year-old female presented with atrial fibrillation with RVR being treated with diltiazem, duration of atrial fibrillation is unknown most likely couple of weeks and patient had not been on anticoagulation cardiology has decided to medically manage patient with rate control and once patient is fully anticoagulated may recommended DC cardioversion, patient states feeling much compared to when she arrived denies any chest pain shortness of breath palpitation. Today patient had a ALEE guided cardioversion it was successful and patient now is sinus rhythm clinically stable will discharge the patient today. Time Spent with Patient Time attestation: Total time spent providing and/or coordinating discharge services: Exam Narrative: Patient is comfortable, NAD HEENT: eyes are clear and none icteric LUNGS: CTA HEART: Irregularly irregular ABD: Not distended Lower extremities: no edema SKIN: nonjaundiced Neuro: grossly intact. Discharge Plan Discharge Attending physician on discharge: Corby Salmon Consulting providers: Ninoska Bishop Discharging Clinician: Corby Salmon Patient Disposition: Home, Self-Care Activity: as tolerated Diet: heart healthy Discharge Instructions: [facility] [address] [place] [address]
== END 2023-01-17 18:45 | disposition home or self-care (01) | DRG 309 ==
LOC: ANHED 23:07 → ANHIMU 01-15 00:35
PROVIDERS: Internal Medicine; Admitting Provider Internal Medicine; Emergency Provider Preventive Medicine Aerospace Medicine; PCP Family Medicine; Visit Provider Family Medicine
PROC: 5A2204Z Restoration of Cardiac Rhythm, Single (ICD-10-PCS; CPT 93312; principal; 2023-01-17 13:00)
PROC: 5A2204Z Restoration of Cardiac Rhythm, Single (ICD-10-PCS; 2023-01-17 13:00)
DX: I48.92 Unspecified atrial flutter (principal); F33.9 Major depressive disorder, recurrent, unspecified; I48.91 Unspecified atrial fibrillation; I47.1 Supraventricular tachycardia; I10 Essential (primary) hypertension; E11.9 Type 2 diabetes mellitus without complications; N32.81 Overactive bladder; M54.2 Cervicalgia; G89.29 Other chronic pain
CPT/HCPCS: 36415; 71045; 80053; 81003; 83735; 83880; 84443; 84484; 85025; 85610; 85730; 92960; 93005; 93306; 96361; 96365; 96366; 96375; 96376; 99285; A9270; C8925; G0378; J0282; J2250; J3010; J7040; Q9957

== ENCOUNTER 2023-01-24 11:26 | Outpatient (CLI) | payer MEDICARE, SELFPAY ==
[2023-01-24 12:38] LABS: Anion Gap 7 mmol/L (8-16); Blood Urea Nitrogen 24 mg/dL (7-17); Calcium 9.4 mg/dL (8.4-10.2); Carbon Dioxide 30 mmol/L (22-30); Chloride 101 mmol/L (98-107); Estimated Glomerular Filt Rate 48; Glucose 115 mg/dL (65-110); Potassium 4.4 mmol/L (3.4-5.0); Sodium 138 mmol/L (137-145)
== END 2023-01-24 11:27 | disposition home or self-care (01) ==
LOC: ANHLAB 11:28
PROVIDERS: PCP Family Medicine; Visit Provider Nurse Practitioner
DX: I42.9 Cardiomyopathy, unspecified (principal)
CPT/HCPCS: 36415; 80048

== ENCOUNTER 2023-02-28 13:20 | Outpatient (CLI) | payer MEDICARE, SELFPAY ==
--- NOTE | ~2023-02-28 | CT_ITS ---
EXAMINATION: CT soft tissue neck w con DATE: 02/28/2023 14:02 INDICATION: Left neck lump. TECHNIQUE: Computed tomography (CT) of the neck was performed with 75 mL Omnipaque-350 intravenous co ntrast. Automated exposure control and iterative reconstruction technique were employed. The dose-ros gth product was 269.48 mGy-cm. COMPARISON: Neck CT 04/14/2021 FINDINGS: There is mild scarring at the lung apices. There are likely changes of ocular lens replacem ent surgeries. There are no pathologically enlarged lymph nodes. There is plaque in the proximal inte rnal carotid arteries with 0% stenosis relative to normal distal artery lumen diameters. A skin marke r overlies left neck. There is no abnormal mass in this area. There is severe cervical spondylosis. IMPRESSION: 1. No abnormal neck mass or lymphadenopathy. Reviewed, dictated and finalized at location A.
[2023-02-28 13:56] LABS: Estimated Glomerular Filt Rate 33
== END 2023-02-28 13:21 | disposition home or self-care (01) ==
PROVIDERS: PCP Family Medicine; Visit Provider Physician Assistant Medical
DX: R22.1 Localized swelling, mass and lump, neck (principal)
CPT/HCPCS: 70491; Q9967

== ENCOUNTER 2023-03-14 13:55 | Outpatient (CLI) | payer MEDICARE, SELFPAY ==
[2023-03-14 15:05] LABS: Anion Gap 5 mmol/L (8-16); Blood Urea Nitrogen 24 mg/dL (7-17); Calcium 9.4 mg/dL (8.4-10.2); Carbon Dioxide 30 mmol/L (22-30); Chloride 103 mmol/L (98-107); Estimated Glomerular Filt Rate 43; Glucose 104 mg/dL (65-110); Potassium 4.8 mmol/L (3.4-5.0); Sodium 138 mmol/L (137-145)
== END 2023-03-14 13:56 | disposition home or self-care (01) ==
LOC: ANHLAB 13:58
PROVIDERS: PCP Physician Assistant Medical; Visit Provider Physician Assistant Medical
DX: N28.9 Disorder of kidney and ureter, unspecified (principal)
CPT/HCPCS: 36415; 80048

== ENCOUNTER 2023-04-18 09:29 | Emergency (ER) | payer MEDICARE, SELFPAY ==
[2023-04-18] VITALS (14 sets, daily range): BP systolic 93–127; BP diastolic 51–65; PULSE 7–75; RESP 8–21; TEMP 37.3–37.7; O2SAT 94–99
--- NOTE | ~2023-04-18 | XR_ITS ---
XR chest 1V portable 04/18/2023 10:14 Indication: Cough. Atrial fibrillation. Hypertension. Procedure: AP portable chest Comparison: Comparison to multiple prior studies sequentially, with oldest reviewed study dated 06/27. Findings: Heart size normal. No focal air space disease, pulmonary edema, pleural effusion or suspect ed pneumothorax. No acute osseous abnormality. Impression: 1: No acute cardiopulmonary disease. Reviewed, dictated and finalized at location L. Impression: 1: No acute cardiopulmonary disease.
--- NOTE | 2023-04-18 09:50 | ECG_ITS ---
Measurements Intervals [place] Rate: 73 P: 61 [place]: 182 QRS: -36 QRSD: 99 T: -59 QT: 370 QTc: 408 Interpretive Statements SINUS RHYTHM LEFT AXIS DEVIATION [QRS AXIS < -30] MINIMAL VOLTAGE CRITERIA FOR LVH, CONSIDER NORMAL VARIANT [MEETS CRITERIA IN ONE OF: R(aVL), S(V1), R(V5), R(V5/V6)+S(V1)] MODERATE T-WAVE ABNORMALITY, CONSIDER ANTEROLATERAL ISCHEMIA [-0.1+ mV T-WAVE IN V3- V6] COMPARED TO ECG 01/17/2023 13:48:00 NO SIGNIFICANT CHANGES Electronically Signed On 04-18-2023 11:02:15 CDT by Skyler Kapoor M.D.
[2023-04-18 10:15] LABS: Basophils Percent Auto 0.2 % (0.2-1.2); Eosinophils Absolute Auto 0.1 K/mm3 (0-0.3); Eosinophils Percent Auto 1.3 % (0-4.4); Hematocrit 32.9 % (37.0-47.0); Hemoglobin 10.9 g/dL (12.0-15.0); Immature Granulocyte Absolute 0.01 K/mm3 (0.00-0.031); Immature Granulocyte Percent A 0.2 % (0-0.5); Lymphocytes Absolute Auto 0.37 K/mm3 (0.9-3.2); Lymphocytes Percent Auto 7.9 % (18.3-44.2); Mean Corpuscular HGB Conc 33.1 g/dl (32-36); Mean Corpuscular Hemoglobin 32.3 pg (26-34); Mean Corpuscular Volume 97.6 fl (80-100); Mean Platelet Volume 10.3 fl (7.4-10.4); Monocytes Percent Auto 20.6 % (2.6-8.5); Neutrophils Absolute Auto 3.3 K/mm3 (1.3-6.7); Neutrophils Percent Auto 69.8 % (45.5-73.1); Platelet Count Result 152 k/mm3 (150-375); Red Blood Count 3.37 M/mm3 (4.2-5.4); Red Cell Distribution Width 12.5 % (11.5-14.5); White Blood Count 4.7 K/mm3 (4.5-10.0)
--- NOTE | 2023-04-18 10:23 | ED.FEVER ---
HPI - Fever General Chief Complaint: Fever Stated Complaint: fever Time Seen by Provider: 04/18/23 09:50 Source: patient Limitations: no limitations History of Present Illness MD elicited complaint: fever Onset (ago): day(s) (2) Measured temperature: 101.7 F Context: other (No sick contacts, recent hospitalization.) Exacerbating factors: nothing Relieving factors: nothing (Nothing tried) Associated symptoms: chills, myalgias, headache, nasal congestion, sore throat (mild), cough (No significant sputum production), shortness of breath (mild) and other (Denies abdominal pain, chest pain, diarrhea, vomiting, dysuria, confusion. ) Related Data Home Medications Medication Instructions Recorded Confirmed fluticasone propionate 50 2 spray intranasal DAILY 11/05/22 03/28/23 mcg/actuation nasal spray,suspension ibuprofen 200 mg tablet 600 mg PO Q6H PRN pain 11/05/22 03/04/23 camphor 4 %-methyl salicylate 30 1 applic topical PRN PRN Pain 01/15/23 03/04/23 %-menthol 10 % topical cream (Bengay Ultra Strength) multivit with minerals-iron 18 1 tablet PO DAILY 01/15/23 03/28/23 mg-folic ac 400 mcg-vit K 25 mcg tablet (Adults Multivitamin) vitamin E 800 unit capsule 800 unit PO DAILY 01/15/23 03/28/23 apixaban 2.5 mg tablet (Eliquis) 2.5 mg PO BID 03/28/23 03/28/23 Allergies Allergy/AdvReac Type Severity Reaction Status Date / Time acetaminophen [From Vicodin] Allergy Severe Swelling Verified 04/18/23 10:01 of Lip/Tongue/Throat hydrocodone Allergy Severe Anaphylactic Verified 04/18/23 10:01 Shock cefuroxime Allergy Intermediate Hives Verified 04/18/23 10:01 propoxyphene Allergy Mild NECK Verified 04/18/23 10:01 SWELLING Sulfa (Sulfonamide Allergy Mild Nausea Verified 04/18/23 10:01 Antibiotics) prednisone AdvReac Dizziness Verified 04/18/23 10:01 FISH Allergy Severe THROAT Uncoded 03/28/23 11:31 SWELLS PMFSH Past Medical History Medical History Abnormal Holter monitor finding Actinic keratosis Basal cell 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 Benign mole BMI 24.0-24.9, adult BMI 25.0-25.9,adult Chronic allergic rhinitis Diabetes Type II Essential (primary) hypertension Low back pain at multiple sites Major depression, recurrent, chronic OAB (overactive bladder) (08/06/18) RLQ abdominal mass Screening cholesterol level Screening for thyroid disorder Skin Lesion Surgical History Surgical History History of cholecystectomy Hx of cataract surgery Family History Family History Father Family history of lung cancer Diabetes mellitus Sibling Family history of lung cancer Mother Family history of congestive heart failure Cerebrovascular accident Other Family history of cardiovascular disease Family history of chronic obstructive pulmonary disease Hypertension Social History Social History Smoking status: Never smoker Tobacco type: cigars Second hand tobacco smoke exposure: Yes Alcohol intake: current Drinks per week: 10 Substance use: never Substance use type: does not use Lack of Transportation: No Lack of Food: Never True Current Housing: I Have Housing Concerned About Future Housing: No Difficulty Paying Gas/Electric Bills: No Difficulty Paying for Meds: No Currently Unemployed: No Education: High School Diploma/GED Difficulty w/ Childcare or Family Care: No Living arrangements: alone Occupation/Education: occupation Additional occupation/education comments: 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
[2023-04-18 10:24] LABS: INR 1.2; Prothrombin Time 15.3 Seconds (11.1-14.7)
[2023-04-18 10:35] LABS: NT Pro B Type Natriuretic Pept 2960 pg/mL (19.9-100); Troponin I < 0.012 ng/mL (0.000-0.034)
[2023-04-18 10:38] LABS: Alanine Aminotransferase 22 U/L (6-35); Alkaline Phosphatase 40 U/L (38-126); Anion Gap 4 mmol/L (8-16); Aspartate Amino Transferase 36 U/L (14-36); Bilirubin,Total 0.6 mg/dL (0.2-1.3); Blood Urea Nitrogen 19 mg/dL (7-17); Calcium 8.7 mg/dL (8.4-10.2); Carbon Dioxide 27 mmol/L (22-30); Chloride 96 mmol/L (98-107); Estimated CRCL calculation 28 ml/min; Estimated Glomerular Filt Rate 53; Glucose 122 mg/dL (65-110); Potassium 4.1 mmol/L (3.4-5.0); Sodium 127 mmol/L (137-145)
[2023-04-18] MEDS: ASPIRIN 325 MG TABLET PO (11:27)
[2023-04-18] MEDS: LACTATED RINGERS 500 ML 999 ML IV CONT (11:28)
[2023-04-18 12:26] LABS: Lipase 221 U/L (23-300); Magnesium 1.9 mg/dL (1.6-2.3)
[2023-04-18 13:44] LABS: Influenza A QL RT-PCR Negative (Negative); Influenza B QL RT-PCR Negative (Negative); SARS-CoV-2 RNA PCR Positive (Negative)
[2023-04-18 14:17] LABS: Troponin I < 0.012 ng/mL (0.000-0.034)
== END 2023-04-18 15:51 | disposition home or self-care (01) ==
PROVIDERS: Emergency Provider Student in an Organized Health Care Education/Training Program; PCP Physician Assistant Medical
DX: U07.1 COVID-19 (principal); J06.9 Acute upper respiratory infection, unspecified; E11.9 Type 2 diabetes mellitus without complications; I10 Essential (primary) hypertension; Z85.828 Personal history of other malignant neoplasm of skin; Z90.49 Acquired absence of other specified parts of digestive tract; Z98.49 Cataract extraction status, unspecified eye; Z79.01 Long term (current) use of anticoagulants; R94.31 Abnormal electrocardiogram [ECG] [EKG]
CPT/HCPCS: 36415; 71045; 80053; 83690; 83735; 83880; 84484; 85025; 85610; 85730; 87636; 93005; 96360; 99284; A9270; J7120

== ENCOUNTER 2023-04-26 15:37 | Outpatient (CLI) | payer MEDICARE, SELFPAY ==
--- NOTE | ~2023-04-26 | XR_ITS ---
EXAMINATION: XR chest 2V DATE: 04/26/2023 16:06 INDICATION: Dyspnea. TECHNIQUE: Frontal and lateral views of the chest were obtained. COMPARISON: Chest single view 04/18/2023 FINDINGS: There is no pneumonia, pleural effusion, or pneumothorax. The heart size is normal. Surgica l clips in the right upper quadrant are likely from cholecystectomy. IMPRESSION: 1. No acute cardiopulmonary disease. Reviewed, dictated and finalized at location E.
== END 2023-04-26 15:38 | disposition home or self-care (01) ==
LOC: ANHIMG 15:39
PROVIDERS: PCP Physician Assistant Medical; Visit Provider Physician Assistant Medical
DX: R06.00 Dyspnea, unspecified (principal)
CPT/HCPCS: 71046

== ENCOUNTER 2023-05-07 11:48 | Emergency (ER) | payer MEDICARE, SELFPAY ==
[2023-05-07] VITALS (9 sets, daily range): BP systolic 121–134; BP diastolic 53–77; PULSE 56–65; RESP 12–21; TEMP 36.6; O2SAT 99–100
--- NOTE | ~2023-05-07 | XR_ITS ---
EXAMINATION: XR chest 2V DATE: 05/07/2023 12:09 INDICATION: Shortness of breath. Dizziness. TECHNIQUE: Frontal and lateral views of the chest were obtained. COMPARISON: Chest 2 views 04/26/2023 FINDINGS: There is no pneumonia, pleural effusion, or pneumothorax. The heart size is normal. Surgica l clips in the right upper quadrant are likely from cholecystectomy. IMPRESSION: 1. No acute cardiopulmonary disease. Reviewed, dictated and finalized at location A.
--- NOTE | 2023-05-07 11:55 | ECG_ITS ---
Measurements Intervals [place] Rate: 56 P: 41 [place]: 163 QRS: -34 QRSD: 93 T: 6 QT: 438 QTc: 425 Interpretive Statements SINUS BRADYCARDIA LEFT AXIS DEVIATION VOLTAGE CRITERIA FOR LVH DELAYED PRECORDIAL R/S TRANSITION BORDERLINE T WAVE ABNORMALITY- INFERIOR LEADS BASELINE ARTIFACT- I, II, AVR, AVL, AVF BORDERLINE ECG COMPARED TO ECG 04/18/2023 09:54:59 SINUS BRADYCARDIA NOW PRESENT Electronically Signed On 05-07-2023 12:02:28 CDT by Demarco Gunter D.O.
[2023-05-07 12:10] LABS: Hematocrit 35.5 % (37.0-47.0); Hemoglobin 11.9 g/dL (12.0-15.0); Mean Corpuscular HGB Conc 33.5 g/dl (32-36); Mean Corpuscular Hemoglobin 32.2 pg (26-34); Mean Corpuscular Volume 96.2 fl (80-100); Red Blood Count 3.69 M/mm3 (4.2-5.4); White Blood Count 7.9 K/mm3 (4.5-10.0)
[2023-05-07 12:11] LABS: Basophils Percent Auto 0.1 % (0.2-1.2); Eosinophils Absolute Auto 0.1 K/mm3 (0-0.3); Eosinophils Percent Auto 0.8 % (0-4.4); Immature Granulocyte Absolute 0.05 K/mm3 (0.00-0.031); Immature Granulocyte Percent A 0.6 % (0-0.5); Lymphocytes Absolute Auto 1.84 K/mm3 (0.9-3.2); Lymphocytes Percent Auto 23.3 % (18.3-44.2); Mean Platelet Volume 10.3 fl (7.4-10.4); Monocytes Percent Auto 12.2 % (2.6-8.5); Platelet Count Result 227 k/mm3 (150-375); Red Cell Distribution Width 11.8 % (11.5-14.5)
[2023-05-07 12:23] LABS: Alanine Aminotransferase 20 U/L (6-35); Albumin Level 4.1 g/dL (3.5-5.1); Alkaline Phosphatase 46 U/L (38-126); Anion Gap 7 mmol/L (8-16); Aspartate Amino Transferase 30 U/L (14-36); Bilirubin,Total 1.2 mg/dL (0.2-1.3); Blood Urea Nitrogen 33 mg/dL (7-17); Calcium 9.5 mg/dL (8.4-10.2); Carbon Dioxide 26 mmol/L (22-30); Chloride 103 mmol/L (98-107); Estimated CRCL calculation 20 ml/min; Estimated Glomerular Filt Rate 53; Glucose 108 mg/dL (65-110); Potassium 4.3 mmol/L (3.4-5.0); Sodium 136 mmol/L (137-145)
--- NOTE | 2023-05-07 14:32 | ED.GENADULT ---
HPI - General Adult General Chief complaint: Shortness of Breath/Dyspnea Stated complaint: sob Time Seen by Provider: 05/07/23 13:35 History of Present Illness HPI narrative: 82-year-old female presented the emergency department for evaluation of intermittent shortness of breath. Patient reports yesterday she was having increased shortness of breath following she was having rapid heart rate. Patient did call her primary care physician and had been told to present to the ED. Patient states instead she laid down for a nap and did feel improved after her nap. Upon arrival to the emergency department today patient states she is not having any chest pain or shortness of breath. Related Data Home Medications Medication Instructions Recorded Confirmed fluticasone propionate 50 2 spray intranasal DAILY 11/05/22 03/28/23 mcg/actuation nasal spray,suspension ibuprofen 200 mg tablet 600 mg PO Q6H PRN pain 11/05/22 03/04/23 camphor 4 %-methyl salicylate 30 1 applic topical PRN PRN Pain 01/15/23 03/04/23 %-menthol 10 % topical cream (Bengay Ultra Strength) multivit with minerals-iron 18 1 tablet PO DAILY 01/15/23 03/28/23 mg-folic ac 400 mcg-vit K 25 mcg tablet (Adults Multivitamin) vitamin E 800 unit capsule 800 unit PO DAILY 01/15/23 03/28/23 apixaban 2.5 mg tablet (Eliquis) 2.5 mg PO BID 03/28/23 03/28/23 Allergies Allergy/AdvReac Type Severity Reaction Status Date / Time acetaminophen [From Vicodin] Allergy Severe Swelling Verified 05/07/23 13:53 of Lip/Tongue/Throat hydrocodone Allergy Severe Anaphylactic Verified 05/07/23 13:53 Shock cefuroxime Allergy Intermediate Hives Verified 05/07/23 13:53 propoxyphene Allergy Mild NECK Verified 05/07/23 13:53 SWELLING Sulfa (Sulfonamide Allergy Mild Nausea Verified 05/07/23 13:53 Antibiotics) prednisone AdvReac Dizziness Verified 05/07/23 13:53 FISH Allergy Severe THROAT Uncoded 04/25/23 14:04 SWELLS Review of Systems Review of Systems: All systems reviewed & are unremarkable except as noted in HPI and below PMFSH Past Medical History Medical History Abnormal Holter monitor finding Actinic keratosis Basal cell carcinoma of right tenriism region Benign familial tremor Benign mole BMI 24.0-24.9, adult BMI 25.0-25.9,adult Chronic allergic rhinitis Diabetes Type II Essential (primary) hypertension Low back pain at multiple sites Major depression, recurrent, chronic OAB (overactive bladder) (08/06/18) RLQ abdominal mass Screening cholesterol level Screening for thyroid disorder Skin Lesion Surgical History Surgical History History of cholecystectomy Hx of cataract surgery Family History Family History Father Family history of lung cancer Diabetes mellitus Sibling Family history of lung cancer Mother Family history of congestive heart failure Cerebrovascular accident Other Family history of cardiovascular disease Family history of chronic obstructive pulmonary disease Hypertension Social History Social History Smoking status: Never smoker Tobacco type: cigars Second hand tobacco smoke exposure: Yes Alcohol intake: current Drinks per week: 10 Substance use: never Substance use type: does not use Lack of Transportation: No Lack of Food: Never True Current Housing: I Have Housing Concerned About Future Housing: No Difficulty Paying Gas/Electric Bills: No Difficulty Paying for Meds: No Currently Unemployed: No Education: High School Diploma/GED Difficulty w/ Childcare or Family Care: No Living arrangements: alone Occupation/Education: occupation Additional 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
== END 2023-05-07 17:26 | disposition home or self-care (01) ==
PROVIDERS: Emergency Provider Emergency Medicine; PCP Physician Assistant Medical
DX: R06.00 Dyspnea, unspecified (principal); E11.9 Type 2 diabetes mellitus without complications; I10 Essential (primary) hypertension; N32.81 Overactive bladder; Z85.828 Personal history of other malignant neoplasm of skin; Z90.49 Acquired absence of other specified parts of digestive tract; Z98.49 Cataract extraction status, unspecified eye; Z79.01 Long term (current) use of anticoagulants
CPT/HCPCS: 36415; 71046; 80053; 85025; 93005; 99284

== ENCOUNTER 2023-05-08 10:48 | Outpatient (CLI) | payer MEDICARE, SELFPAY ==
--- NOTE | ~2023-05-08 | US_ITS ---
Renal-Bladder ultrasound Clinical History: Abnormal blood chemistry findings Technique: Real-time sonographic imaging of the kidneys and urinary bladder was performed. Findings: The right kidney measures 9.6 cm in length and the left kidney measures 10.7 cm. There is n o hydronephrosis or renal calculus identified. Renal cortical echogenicity is within normal limits. N o renal mass lesion is identified. The urinary bladder is partially distended at the time of this exam. No intraluminal echoes are ident ified. No abnormal wall thickening is seen. Impression: Unremarkable ultrasound of the kidneys and urinary bladder. Reviewed, dictated and finalized at location M. Impression: Unremarkable ultrasound of the kidneys and urinary bladder.
[2023-05-08 12:38] LABS: Creatinine Urine 65.6 mg/dL; Total Protein Urine Random 8 mg/dL; Ur Ttl Prot Creatinine Ratio 0.12 mg/mg (0-0.20)
[2023-05-08 12:49] LABS: Albumin Level 4.5 g/dL (3.5-5.1); Anion Gap 8 mmol/L (8-16); Blood Urea Nitrogen 30 mg/dL (7-17); Calcium 9.2 mg/dL (8.4-10.2); Carbon Dioxide 26 mmol/L (22-30); Chloride 98 mmol/L (98-107); Estimated Glomerular Filt Rate > 60; Glucose 106 mg/dL (65-110); Phosphorus 3.4 mg/dL (2.5-4.5); Sodium 132 mmol/L (137-145)
[2023-05-08 12:55] LABS: Complement C3 84 mg/dL (88-165)
[2023-05-11 16:33] LABS: Anti Glomerular Basement Memb <1.0 AI (<1.0)
[2023-05-13 10:20] LABS: ANCA Screen Negative (Negative)
[2023-05-13 16:54] LABS: Albumin 4.3 g/dL (3.8-4.8); Alpha 1 Globulin 0.2 g/dL (0.2-0.3); Alpha 2 Globulin 0.7 g/dL (0.5-0.9); Beta 1 Globulin 0.5 g/dL (0.4-0.6); Gamma Globulin 1.1 g/dL (0.8-1.7); Protein, Total 7.2 g/dL (6.1-8.1)
[2023-05-13 22:23] LABS: Creatinine, Random Urine 59 mg/dL (20-275); Total Protein/Creatinine Ratio 102 mg/g creat (24-184)
[2023-05-15 05:57] LABS: Anti Nuclear Antibody Titer 1:40 (Negative)
== END 2023-05-08 10:49 | disposition home or self-care (01) ==
PROVIDERS: PCP Physician Assistant Medical; Visit Provider Internal Medicine Nephrology
DX: R79.89 Other specified abnormal findings of blood chemistry (principal); I10 Essential (primary) hypertension
CPT/HCPCS: 36415; 76775; 80069; 82570; 83520; 84155; 84156; 84165; 84166; 86036; 86038; 86039; 86160; 86225

== ENCOUNTER 2023-08-05 13:19 | Outpatient (CLI) | payer MEDICARE, SELFPAY ==
[2023-08-05 14:00] LABS: Basophils Percent Auto 0.2 % (0.2-1.2); Eosinophils Absolute Auto 0.2 K/mm3 (0-0.3); Eosinophils Percent Auto 4.7 % (0-4.4); Hematocrit 34.8 % (37.0-47.0); Hemoglobin 11.5 g/dL (12.0-15.0); Immature Granulocyte Absolute 0.01 K/mm3 (0.00-0.031); Immature Granulocyte Percent A 0.2 % (0-0.5); Lymphocytes Percent Auto 36.5 % (18.3-44.2); Mean Corpuscular Hemoglobin 32.7 pg (26-34); Mean Corpuscular Volume 98.9 fl (80-100); Mean Platelet Volume 9.7 fl (7.4-10.4); Monocytes Absolute Auto 0.7 K/mm3 (0.1-0.6); Monocytes Percent Auto 15.2 % (2.6-8.5); Neutrophils Percent Auto 43.2 % (45.5-73.1); Platelet Count Result 189 k/mm3 (150-375); Red Blood Count 3.52 M/mm3 (4.2-5.4); Red Cell Distribution Width 11.8 % (11.5-14.5); White Blood Count 4.7 K/mm3 (4.5-10.0)
[2023-08-05 14:21] LABS: Alanine Aminotransferase 22 U/L (6-35); Albumin Level 4.2 g/dL (3.5-5.1); Alkaline Phosphatase 57 U/L (38-126); Anion Gap 5 mmol/L (8-16); Aspartate Amino Transferase 37 U/L (14-36); Blood Urea Nitrogen 20 mg/dL (7-17); Calcium 9.4 mg/dL (8.4-10.2); Carbon Dioxide 31 mmol/L (22-30); Chloride 103 mmol/L (98-107); Estimated Glomerular Filt Rate 60; Glucose 100 mg/dL (65-110); Magnesium 2.2 mg/dL (1.6-2.3); Potassium 4.3 mmol/L (3.4-5.0); Sodium 139 mmol/L (137-145)
[2023-08-05 14:26] LABS: Iron 141 ug/dL (37-170)
[2023-08-05 14:36] LABS: Percent Iron Saturation 47 % (20-50)
[2023-08-05 14:48] LABS: Thyroid Stimulating Hormone 0.814 uIU/mL (0.465-4.680)
== END 2023-08-05 13:20 | disposition home or self-care (01) ==
PROVIDERS: PCP Physician Assistant Medical; Visit Provider Physician Assistant Medical
DX: D64.9 Anemia, unspecified (principal); L65.9 Nonscarring hair loss, unspecified; N18.32 Chronic kidney disease, stage 3b; R19.7 Diarrhea, unspecified; R25.2 Cramp and spasm
CPT/HCPCS: 36415; 80053; 82728; 83540; 83550; 83735; 84443; 85025

== ENCOUNTER 2023-09-10 07:26 | Outpatient (CLI) | payer MEDICARE, SELFPAY ==
--- NOTE | ~2023-09-10 | CT_ITS ---
CT of the Abdomen and Pelvis: Indication: Abdominal pain/pressure Technique: 2.5 mm axial scans were obtained through the abdomen and pelvis following intravenous adm inistration of 100 cc of Omnipaque 350. Dose reduction technique was used on this scan by utilizing a utomated exposure control and iterative reconstruction technique. The dose-length product (DLP) was 2 28.06 mGy-cm. COMPARISON: 04/28/2021 Findings: Scans through the lung bases are unremarkable. The liver, spleen, pancreas, adrenals and kidneys are within normal limits. Cholecystectomy clips are present. No evidence of aortic aneurysm. No lymphadenopathy. No bowel obstruction or bowel wall thickening. There is no evidence to suggest acute appendicitis. Images through the pelvis were performed. Urinary bladder unremarkable. No pelvic mass seen. No ascit es. Impression: No significant abnormalities seen. Reviewed, dictated and finalized at [facility]. EXPERIENCE ANALYST Impression: No significant abnormalities seen.
[2023-09-10 07:42] LABS: Estimated Glomerular Filt Rate 48
== END 2023-09-10 07:27 | disposition home or self-care (01) ==
LOC: ANHIMG 07:28
PROVIDERS: PCP Physician Assistant Medical; Visit Provider Physician Assistant Medical
DX: R10.9 Unspecified abdominal pain (principal); R10.2 Pelvic and perineal pain; R19.7 Diarrhea, unspecified
CPT/HCPCS: 74177; Q9967

== ENCOUNTER 2023-09-26 12:43 | Emergency (ER) | payer MEDICARE, SELFPAY ==
--- NOTE | ~2023-09-26 | XR_ITS ---
XR chest 2V DATE: 09/26/2023 13:50 INDICATION: Cough. Chest pain. TECHNIQUE: PA and lateral views COMPARISON: 05/07/2023 PA and lateral chest FINDINGS: Cardiomegaly. No hilar or mediastinal enlargement. No pulmonary infiltrate or consolidation , pleural effusion or pulmonary vascular congestion or pneumothorax is evident. Diffuse osteopenia. Thoracic and lumbar scoliosis. Surgical clips, right upper quadrant, consistent with cholecystectomy. IMPRESSION: Cardiomegaly No active pulmonary disease Reviewed, dictated and finalized at location L. N MANAGER
[2023-09-26 12:46] VITALS: BP 135/65; PULSE 94; RESP 16; TEMP 37.4; O2SAT 99
--- NOTE | 2023-09-26 13:07 | ECG_ITS ---
Measurements Intervals [place] Rate: 73 P: 65 IA: 172 QRS: -33 QRSD: 101 T: -22 QT: 381 QTc: 420 Interpretive Statements SINUS RHYTHM WITH OCCASIONAL SUPRAVENTRICULAR PREMATURE COMPLEXES MARKED LEFT AXIS DEVIATION [QRS AXIS < -30] MINIMAL VOLTAGE CRITERIA FOR LVH, CONSIDER NORMAL VARIANT [MEETS CRITERIA IN ONE OF: R(aVL), S(V1), R(V5), R(V5/V6)+S(V1)] MODERATE T-WAVE ABNORMALITY, CONSIDER ANTERIOR ISCHEMIA [-0.1+ mV T WAVE IN V3/V4] COMPARED TO ECG 05/07/2023 11:58:31 SINUS RHYTHM NOW PRESENT Electronically Signed On 09-26-2023 14:08:34 CHAMFERING MACHINE OPERATOR by Skyler Kapoor M.D.
[2023-09-26 13:30] LABS: Basophils Percent Auto 0.2 % (0.2-1.2); Eosinophils Percent Auto 0.2 % (0-4.4); Hematocrit 33.6 % (37.0-47.0); Hemoglobin 11.3 g/dL (12.0-15.0); Immature Granulocyte Absolute 0.02 K/mm3 (0.00-0.031); Immature Granulocyte Percent A 0.3 % (0-0.5); Lymphocytes Absolute Auto 1.21 K/mm3 (0.9-3.2); Lymphocytes Percent Auto 19.5 % (18.3-44.2); Mean Corpuscular HGB Conc 33.6 g/dl (32-36); Mean Corpuscular Hemoglobin 32.2 pg (26-34); Mean Corpuscular Volume 95.7 fl (80-100); Mean Platelet Volume 9.3 fl (7.4-10.4); Monocytes Absolute Auto 0.8 K/mm3 (0.1-0.6); Monocytes Percent Auto 13.6 % (2.6-8.5); Neutrophils Absolute Auto 4.1 K/mm3 (1.3-6.7); Neutrophils Percent Auto 66.2 % (45.5-73.1); Platelet Count Result 174 k/mm3 (150-375); Red Blood Count 3.51 M/mm3 (4.2-5.4); Red Cell Distribution Width 11.3 % (11.5-14.5); White Blood Count 6.2 K/mm3 (4.5-10.0)
[2023-09-26 13:43] LABS: INR 1.1; Prothrombin Time 14.1 Seconds (11.1-14.7)
[2023-09-26 13:44] LABS: Partial Thromboplastin Time 27.7 SECONDS (22.3-36.8)
[2023-09-26 13:46] LABS: Alanine Aminotransferase 19 U/L (6-35); Albumin Level 4.3 g/dL (3.5-5.1); Alkaline Phosphatase 48 U/L (38-126); Anion Gap 7 mmol/L (8-16); Aspartate Amino Transferase 33 U/L (14-36); Bilirubin,Total 1.3 mg/dL (0.2-1.3); Blood Urea Nitrogen 19 mg/dL (7-17); Calcium 9.5 mg/dL (8.4-10.2); Carbon Dioxide 28 mmol/L (22-30); Chloride 97 mmol/L (98-107); Estimated CRCL calculation 31 ml/min; Estimated Glomerular Filt Rate 60; Glucose 123 mg/dL (65-110); Potassium 4.3 mmol/L (3.4-5.0); Sodium 132 mmol/L (137-145)
[2023-09-26 13:48] LABS: Influenza A QL RT-PCR Negative (Negative); Influenza B QL RT-PCR Negative (Negative); RSV RNA, RT-PCR Negative (Negative); SARS-CoV-2 RNA PCR Negative (Negative)
[2023-09-26 13:57] LABS: Troponin I < 0.012 ng/mL (0.000-0.034)
--- NOTE | 2023-09-26 15:13 | ED.GENADULT ---
HPI - General Adult General Chief complaint: Upper Respiratory Infection Stated complaint: flu symptoms Time Seen by Provider: 09/26/23 12:59 History of Present Illness HPI narrative: patient is an 82-year-old female who presents ER with multitude of complaints. She reports diffuse body aches with bad dreams at night. She has had some sore throat and cough. She also reports constant left-sided chest pain. She has history of AFib but no heart disease. No dizziness or loss of consciousness. No known sick contacts. She is without urinary symptoms. Related Data Home Medications Medication Instructions Recorded Confirmed fluticasone propionate 50 2 spray intranasal DAILY 11/05/22 09/12/23 mcg/actuation nasal spray,suspension ibuprofen 200 mg tablet 600 mg PO Q6H PRN pain 11/05/22 09/12/23 camphor 4 %-methyl salicylate 30 1 applic topical PRN PRN Pain 01/15/23 09/12/23 %-menthol 10 % topical cream (Bengay Ultra Strength) multivit with minerals-iron 18 1 tablet PO DAILY 01/15/23 09/12/23 mg-folic ac 400 mcg-vit K 25 mcg tablet (Adults Multivitamin) vitamin E 800 unit capsule 800 unit PO DAILY 01/15/23 09/12/23 apixaban 2.5 mg tablet (Eliquis) 2.5 mg PO BID 03/28/23 09/12/23 biotin 10,000 mcg chewable tablet mcg PO 08/02/23 09/12/23 (Hair, Skin and Nails (biotin)) Allergies Allergy/AdvReac Type Severity Reaction Status Date / Time acetaminophen [From Vicodin] Allergy Severe Swelling Verified 09/26/23 12:44 of Lip/Tongue/Throat hydrocodone Allergy Severe Anaphylactic Verified 09/26/23 12:44 Shock cefuroxime Allergy Intermediate Hives Verified 09/26/23 12:44 propoxyphene Allergy Mild NECK Verified 09/26/23 12:44 SWELLING Sulfa (Sulfonamide Allergy Mild Nausea Verified 09/26/23 12:44 Antibiotics) prednisone AdvReac Dizziness Verified 09/26/23 12:44 FISH Allergy Severe THROAT Uncoded 09/26/23 12:44 SWELLS Review of Systems Review of Systems: All systems reviewed & are unremarkable except as noted in HPI and below Constitutional: Constitutional: Reports chills, Reports fatigue, Reports fever(s) and Reports weakness ENT: Reports nasal congestion and Reports sore throat Cardiovascular: Cardiovascular: Reports chest pain, Denies rapid heart rate and Denies radiating jaw, neck or arm pain Respiratory: Respiratory: Reports cough, Denies dyspnea and Denies wheezing Gastrointestinal: Gastrointestinal: Reports no additional gastrointestinal complaints PMFSH Past Medical History Medical History Abnormal Holter monitor finding Actinic keratosis Basal cell carcinoma of right church region Benign familial tremor Benign mole BMI 24.0-24.9, adult BMI 25.0-25.9,adult Chronic allergic rhinitis Diabetes Type II Essential (primary) hypertension IBS (irritable bowel syndrome) Low back pain at multiple sites Major depression, recurrent, chronic OAB (overactive bladder) (08/06/18) RLQ abdominal mass Screening cholesterol level Screening for thyroid disorder Skin Lesion Surgical History Surgical History History of cholecystectomy Hx of cataract surgery Family History Family History Father Family history of lung cancer Diabetes mellitus Sibling Family history of lung cancer Mother Family history of congestive heart failure Cerebrovascular accident Other Family history of cardiovascular disease Family history of chronic obstructive pulmonary disease Hypertension Social History Social History Smoking status: Never smoker Tobacco type: cigars Second hand tobacco smoke exposure: Yes Alcohol intake: current Drinks per week: 10 Substance use: never Substance use type: does not use Lack of Transportation: No Lack
[2023-09-26 15:41] VITALS: BP 130/76; PULSE 84; RESP 16; O2SAT 99
== END 2023-09-26 15:42 | disposition home or self-care (01) ==
PROVIDERS: Emergency Provider Emergency Medicine; PCP Physician Assistant Medical
DX: R07.9 Chest pain, unspecified (principal); M79.10 Myalgia, unspecified site; Z20.822 Contact with and (suspected) exposure to COVID-19; I48.91 Unspecified atrial fibrillation; E11.9 Type 2 diabetes mellitus without complications; I10 Essential (primary) hypertension; K58.9 Irritable bowel syndrome, unspecified; N32.81 Overactive bladder; Z98.49 Cataract extraction status, unspecified eye; Z85.828 Personal history of other malignant neoplasm of skin; Z90.49 Acquired absence of other specified parts of digestive tract; Z77.22 Contact with and (suspected) exposure to environmental tobacco smoke (acute) (chronic); Z79.01 Long term (current) use of anticoagulants; I49.1 Atrial premature depolarization; R94.31 Abnormal electrocardiogram [ECG] [EKG]; I51.7 Cardiomegaly
CPT/HCPCS: 36415; 71046; 80053; 84484; 85025; 85610; 85730; 87637; 93005; 99284

== ENCOUNTER 2023-12-09 11:41 | Outpatient (CLI) | payer MEDICARE, SELFPAY ==
[2023-12-09 12:31] LABS: Albumin Level 4.5 g/dL (3.5-5.1); Anion Gap 4 mmol/L (4-12); Blood Urea Nitrogen 21 mg/dL (7-17); Calcium 9.7 mg/dL (8.4-10.2); Carbon Dioxide 29 mmol/L (22-30); Chloride 105 mmol/L (98-107); Estimated Glomerular Filt Rate > 60; Glucose 108 mg/dL (65-110); Phosphorus 3.8 mg/dL (2.5-4.5); Potassium 4.7 mmol/L (3.4-5.0); Sodium 138 mmol/L (137-145)
== END 2023-12-09 11:42 | disposition home or self-care (01) ==
LOC: ANHLAB 11:44
PROVIDERS: PCP Physician Assistant Medical; Visit Provider Internal Medicine Nephrology
DX: R79.89 Other specified abnormal findings of blood chemistry (principal); R76.8 Other specified abnormal immunological findings in serum
CPT/HCPCS: 36415; 80069; 86038; 86039; 86225

== ENCOUNTER 2024-04-15 10:31 | Outpatient (CLI) | payer MEDICARE, SELFPAY ==
--- NOTE | ~2024-04-15 | DEXA_ITS ---
Bone Density Report Name: FINA ABEL V Age: 83 Sex: Female Ethnicity: White Date of : 1940 Indication: osteopenia; height loss; cancer; asthma or emphysema; hysterectomy; Referring Provider: TABATHA UMANZOR Study: Bone densitometry was performed. Exam Date: April 15, 2024 Accession number: [id number] Bone Density: Region BMD T-score Z-score Classification AP Spine(L2, L3, L4) 1.047 -0.3 2.5 Normal Femoral Neck (Left) 0.673 -1.6 0.8 Osteopenia Total Hip (Left) 0.887 -0.4 1.7 Normal Femoral Neck (Right) 0.655 -1.7 0.6 Osteopenia Total Hip (Right) 0.834 -0.9 1.3 Normal Total Hip Mean 0.861 -0.7 1.5 Normal World Health Organization criteria for BMD impression classify patients as: Normal (T-score at or above -1.0), Osteopenia (T-score between -1.0 and -2.5), or Osteoporosis (T-score at or below -2.5). 10-year Fracture Risk(1): Major Osteoporotic Fracture 14% Hip Fracture 3.9% Reported Risk Factors: [place] (), Neck BMD=0.655, BMI=23.7 (1) FRAX(R) Version 3.08. Fracture probability calculated for an untreated patient. Fracture probability may be lower if the patient has received treatment. Previous Exams: Region Exam Age BMD T-score BMD Change BMD Change Date g/cm2 vs Baseline vs Previous Total Hip(Right) 04/15/2024 83 0.834 -0.9 0.163 (24.3%)* 0.163 (24.3%)* 04/15/2024 83 0.671 -2.2 *Denotes significance at 95% confidence level, LSC for Total Hip = 0.027 g/cm2 Clinical Information Provided by Patient: Has the following medical conditions: Asthma or Emphysema, Cancer, Hysterectomy Patient maximum height was 64.5 No regular weight bearing exercise Drinks caffeinated beverages Onset of menses at age 15 Number of children 3 Impression: The patient has low bone mass, based on the Right Femoral Neck T-score. The patient has an estimated ten-year risk of hip fracture of 3.9% and an estimated ten-year risk of major fracture of 14%, based on the WHO FRAX algorithm. No significant bone loss was observed. Discussion: BONE DENSITY IS LOW AT ONE OR MORE SKELETAL SITES. THE PATIENT'S BMD AND CLINICAL RISK FACTORS CONTRIBUTE TO THIS PATIENT'S INCREASED RISK OF FRACTURE. This patient's lowest T-score is low at one or more skeletal sites. It meets the World Health Organization's (WHO) criteria for ?low bone mass? (T-score between -1.0 and -2.5). The patient's 10-year risk of hip fracture as calculated by FRAX exceeds the threshold where pharmacological therapy is recommended by the Nationa
== END 2024-04-15 10:32 | disposition home or self-care (01) ==
PROVIDERS: PCP Physician Assistant Medical; Visit Provider Physician Assistant Medical
DX: E28.39 Other primary ovarian failure (principal); M85.852 Other specified disorders of bone density and structure, left thigh; M85.851 Other specified disorders of bone density and structure, right thigh
CPT/HCPCS: 77080

== ENCOUNTER 2025-08-05 11:14 | Inpatient (IN) | payer MEDICARE, SELFPAY ==
[2025-08-05] VITALS (35 sets, daily range): BP systolic 117–149; BP diastolic 79–107; PULSE 115–121; RESP 12–33; TEMP 36.7–36.9; O2SAT 93–100; BMI 26.5
--- NOTE | ~2025-08-05 | XR_ITS ---
EXAMINATION: XR chest 2V, 08/05/2025 11:50 ENVIRONMENTAL HEALTH PHYSICIAN HISTORY: palpitations COMPARISON: No comparisons available. Technique: 2 views obtained. Findings: COPD changes with trace left pleural effusion. No pneumothorax. Heart is normal size. Mediastinal and hilar contours are within normal limits. Bony thorax no acute abnormality. Impression: Trace left pleural effusion Reviewed, dictated and finalized at location P. RONMENTAL HEALTH PHYSICIAN Impression: Trace left pleural effusion
--- NOTE | 2025-08-05 11:17 | ECG_ITS ---
Test Date: 2025-08-05 11:25:05 Measurements Intervals [place] Rate: 120 P: 0 [place]: 0 QRS: -37 QRSD: 100 T: -14 QT: 389 QTc: 551 Interpretive Statements ATRIAL FLUTTER/TACHYCARDIA WITH RAPID VENTRICULAR RESPONSE LEFT AXIS DEVIATION INCOMPLETE RIGHT BUNDLE BRANCH BLOCK DELAYED PRECORDIAL R/S TRANSITION ABNORMAL ECG No previous ECG available for comparison Electronically Signed On 08-05-2025 12:06:50 SANDBLAST CARVER by Demarco Gunter D.O.
[2025-08-05 11:48] LABS: Hematocrit 39.1 % (37.0-47.0); Hemoglobin 13.3 g/dL (12.0-15.0); Immature Granulocyte Percent A 0.4 % (0-0.5); Lymphocytes Absolute Auto 1.67 K/mm3 (0.9-3.2); Mean Corpuscular HGB Conc 34.0 g/dl (32-36); Mean Corpuscular Hemoglobin 32.4 pg (26-34); Mean Corpuscular Volume 95.4 fl (80-100); Nucleated Red Blood Cells Absolute Auto 0.000 K/mm3 (0.0-0.012); Nucleated Red Blood Cells Perc 0.0 % (0.0-0.2); Platelet Count Result 218 k/mm3 (150-375); Red Blood Count 4.10 M/mm3 (4.2-5.4); White Blood Count 5.7 K/mm3 (4.5-10.0)
[2025-08-05 12:01] LABS: INR 1.0; Prothrombin Time 13.6 Seconds (11.1-14.7)
[2025-08-05 12:02] LABS: Alanine Aminotransferase 20 U/L (6-35); Albumin Level 4.5 g/dL (3.5-5.1); Alkaline Phosphatase 70 U/L (38-126); Anion Gap 7 mmol/L (4-12); Aspartate Amino Transferase 41 U/L (14-36); Bilirubin,Total 1.1 mg/dL (0.2-1.3); Blood Urea Nitrogen 17 mg/dL (7-17); Calcium 9.9 mg/dL (8.4-10.2); Carbon Dioxide 27 mmol/L (22-30); Chloride 103 mmol/L (98-107); Estimated CRCL calculation 34 ml/min; Estimated Glomerular Filt Rate 58; Glucose 102 mg/dL (65-110); Lipase 185 U/L (23-300); Partial Thromboplastin Time 25.6 Seconds (22.3-36.8); Potassium 4.1 mmol/L (3.4-5.0); Sodium 137 mmol/L (137-145); Total Protein 8.0 g/dL (6.3-8.2)
[2025-08-05 12:12] LABS: Troponin I < 0.012 ng/mL (0.000-0.034)
[2025-08-05] MEDS: METOPROLOL TARTRATE INJ 5 MG/5 ML VIAL 2.5 MG IV PUSH (12:46)
[2025-08-05 13:05] LABS: Magnesium 2.2 mg/dL (1.6-2.3)
[2025-08-05 13:10] LABS: NT Pro B Type Natriuretic Pept 2050 pg/mL (19.9-100)
[2025-08-05] MEDS: METOPROLOL TARTRATE INJ 5 MG/5 ML VIAL IV PUSH (13:13)
--- NOTE | 2025-08-05 13:40 | ED.GENADULT ---
HPI - General Adult General Chief complaint: Shortness of Breath/Dyspnea Stated complaint: Shaky, shortness of breath & elevated BP Time Seen by Provider: 08/05/25 12:19 History of Present Illness HPI narrative: patient 82-year-old female presents emergency department chief complaint of shortness of breath generalized weakness patient reports she has history of atrial fibrillation reports that she is on metoprolol and is on Eliquis infection patient states she has had increasing dyspnea on exertion reports that she has noticed that her heart rate has been consistently running about 101 at home patient states that she has had no chest pain does report she has had some weight gain particularly of her trunk Related Data Home Medications ?Medication ?Instructions ?Recorded ?Confirmed ?Last Taken ?Type fluticasone propionate 50 2 spray intranasal DAILY 11/05/22 10/01/24 01/14/23 09:00 History mcg/actuation nasal spray,suspension ibuprofen 200 mg tablet 600 mg PO Q6H PRN pain 11/05/22 10/01/24 Unknown History Held on 01/17/23. Instructions: until seen by her primary care camphor 4 %-methyl salicylate 30 1 applic topical PRN PRN Pain 01/15/23 10/01/24 Unknown History %-menthol 10 % topical cream (Bengay Ultra Strength) multivit with minerals-iron 18 1 tablet PO DAILY 01/15/23 10/01/24 Unknown History mg-folic ac 400 mcg-vit K 25 mcg tablet (Adults Multivitamin) vitamin E 800 unit capsule 800 unit PO DAILY 01/15/23 10/01/24 Unknown History apixaban 2.5 mg tablet (Eliquis) 2.5 mg PO BID 03/28/23 10/01/24 Unknown History biotin 10,000 mcg chewable tablet mcg PO 08/02/23 10/01/24 Unknown History (Hair, Skin and Nails (biotin)) hydrocortisone 2.5 % topical cream 1 applic topical BID PRN 10/18/23 10/01/24 Unknown History probiotic 243 mg BYMOUTH DAILY 10/18/23 10/01/24 Unknown History Allergies Allergy/AdvReac Type Severity Reaction Status Date / Time acetaminophen (From Vicodin) Allergy Severe Swelling Verified 08/05/25 11:30 of Lip/Tongue/Throat hydrocodone Allergy Severe Anaphylactic Verified 08/05/25 11:30 Shock cefuroxime Allergy Intermediate Hives Verified 08/05/25 11:30 propoxyphene Allergy Mild NECK Verified 08/05/25 11:30 SWELLING Sulfa (Sulfonamide Allergy Mild Nausea Verified 08/05/25 11:30 Antibiotics) prednisone AdvReac Dizziness Verified 08/05/25 11:30 FISH Allergy Severe THROAT Uncoded 10/01/24 13:25 SWELLS Review of Systems Review of Systems: A 10 system review of systems was completed on the patient and is negative except for what is stated in the HPI. Nursing and ancillary documentation was reviewed. [facility] Past Medical History Medical History Major depression, recurrent, chronic History of basal cell carcinoma (BCC) Elevated serum creatinine Heart murmur Cardiomyopathy IBS (irritable bowel syndrome) RLQ abdominal mass Basal cell carcinoma of right taoist region Benign familial tremor Chronic allergic rhinitis Essential (primary) hypertension Low back pain at multiple sites OAB (overactive bladder) (08/06/18) Surgical History Surgical History Hx of cataract surgery History of cholecystectomy Family History Family History Father Family history of lung cancer Diabetes mellitus Sibling Family history of lung cancer Mother Family history of congestive heart failure Cerebrovascular accident Other Family history of cardiovascular disease Family history of chronic obstructive pulmonary disease Hypertension Social History Social History Social History: Pt is somewhat confident in filling out medical forms. Pt has received assistance paying for medications. Smoking status: Never smoker Tobacco type: cigars Second hand tobacco smoke exposure: Yes Alcohol intake: current Drinks per week: 10 Substance use: never Substance use type: does not use Lack of Transportation: No Lack of Food: Never True Current Housing: I Have Housing Concerned About Future Housing: No Difficulty Paying Gas/Electric Bills: No Difficulty Paying for Meds: YES Currently Unemployed: YES Education: High School Diploma/GED Difficulty w/ Childcare or Family Care: No Living arrangements: alone Occupation/Education: unemployed Gender identity (if verbalized by the patient): Female Sexual Orientation (if Verbalized by the Patient): Straight or Heterosexual Spiritual care concerns: No Agree to blood products: Yes Exam Narrative: GENERAL: Well-appearing, well-nourished, and in no acute distress. HEAD: Normocephalic, atraumatic. EYES: PERRLA and EOMI. ENT: Nares clear, no rhinorrhea or epistaxis. Mucous membranes moist. NECK: Supple. CHEST: Clear to auscultation. No respiratory distress. HEART: Regular rate and rhythm. No murmur heard. Normal peripheral pulses. ABDOMEN: Soft, nontender, nondistended, normal active bowel sounds. EXTREMITIES: Normal range of motion. No edema. SKIN: Warm, dry, no rash. NEURO: No focal deficits. Alert and oriented x3. PSYCH: Normal mood and affect. Course Vital Signs Vital signs: Vital Signs Temperature 36.7 C 08/05/25 11:23 Pulse Rate 119 H 08/05/25 11:23 Respiratory Rate 20 08/05/25 11:23 Blood Pressure 149/107 H 08/05/25 11:23 Pulse Oximetry 99 08/05/25 11:23 Oxygen Delivery Room Air 08/05/25 11:23 Temperature 36.7 C 08/05/25 11:23 Pulse Rate 118 H 08/05/25 13:16 Respiratory Rate 20 08/05/25 13:16 Blood Pressure 133/92 H 08/05/25 13:16 Pulse Oximetry 95 08/05/25 13:16 Oxygen Delivery Room Air 08/05/25 11:[address] [facility] MDM Narrative Medical decision making narrative: patient received IV Lopressor in the emergency department initial troponin was negative BNP was elevated at 2050 chest x-ray showed no focal infiltrate the case was discussed with the hospitalist for admission Differential Diagnosis Differential Diagnosis: CHF, pneumonia, atrial fibrillation with rapid ventricular response, Lab Data 08/05/25 11:43 08/05/25 11:43 Labs: Lab Results 08/05/25 Range/Units 11:43 WBC 5.7 (4.5-10.0) K/mm3 RBC 4.10 L (4.2-5.4) M/mm3 Hgb 13.3 (12.0-15.0) g/dL Hct 39.1 (37.0-47.0) % MCV 95.4 (80-100) fl MCH 32.4 (26-34) pg MCHC 34.0 (32-36) g/dl RDW 11.7 (11.5-14.5) % Plt Count 218 (150-375) k/mm3 MPV 9.4 (7.4-10.4) fl Immature Gran % (Auto) 0.4 (0-0.5) % Neut % (Auto) 56.2 (45.5-73.1) % Lymph % (Auto) 29.2 (18.3-44.2) % [place] % (Auto) 10.7 H (2.6-8.5) % Eos % (Auto) 3.3 (0-4.4) % Baso % (Auto) 0.2 (0.2-1.2) % Lymph # (Auto) 1.67 (0.9-3.2) K/mm3 [place] # (Auto) 0.6 (0.1-0.6) K/mm3 Eos # (Auto) 0.2 (0-0.3) K/mm3 Baso # (Auto) 0.0 (0.0-0.1) K/mm3 Abs Immat Gran (auto) 0.02 (0.00-0.031) K/mm3 Absolute Neuts (auto) 3.2 (1.3-6.7) K/mm3 Absolute Nucleated RBC 0.000 (0.0-0.012) K/mm3 Nucleated RBC % 0.0 (0.0-0.2) % PT 13.6 (11.1-14.7) Seconds INR 1.0 APTT 25.6 (22.3-36.8) Seconds Sodium 137 (137-145) mmol/L Potassium 4.1 (3.4-5.0) mmol/L Chloride 103 (98-107) mmol/L Carbon Dioxide 27 (22-30) mmol/L Anion Gap 7 (4-12) mmol/L BUN 17 (7-17) mg/dL Creatinine 0.92 (0.7-1.0) mg/dL Estim Creat Clear Calc 34 ml/min Estimated GFR 58 L (59 - ) Glucose 102 (65-110) mg/dL Calcium 9.9 (8.4-10.2) mg/dL Magnesium 2.2 (1.6-2.3) mg/dL Total Bilirubin 1.1 (0.2-1.3) mg/dL AST 41 H (14-36) U/L ALT 20 (6-35) U/L Alkaline Phosphatase 70 (38-126) U/L Troponin I < 0.012 (0.000-0.034) ng/mL NT-Pro-B Natriuret Pep 2050 H (19.9-100) pg/mL Total Protein 8.0 (6.3-8.2) g/dL Albumin 4.5 (3.5-5.1) g/dL Lipase 185 (23-300) U/L Imaging Data Radiologist's impression: ITS Impressions Chest X-Ray 08/05/25 11:59 Impression: Trace left pleural effusion Discharge Plan Discharge Clinical Impression: Atrial flutter with rapid ventricular response, Dyspnea Patient Disposition: Still a Patient Condition: Stable Patient Language: Portuguese Prescriptions: No Action ibuprofen 200 mg tablet 600 mg PO Q6H PRN (Reason: pain) fluticasone propionate 50 mcg/actuation spray,suspension 2 spray intranasal DAILY Rx Instructions: administer into each nostril Eliquis 2.5 mg tablet 2.5 mg PO BID Hair, Skin and Nails (biotin) 10,000 mcg tablet,chewable PO probiotic 243 mg BYMOUTH DAILY hydrocortisone 2.5 % cream 1 applic topical BID PRN amoxicillin-pot clavulanate 875-125 mg tablet 1 tablet PO BID Qty: 20 0RF prednisone 20 mg tablet 20 mg PO DAILY Qty: 5 0RF vitamin E 800 unit Capsule 800 unit PO DAILY Adults Multivitamin 18 mg iron-400 mcg-25 mcg Tablet 1 tablet PO DAILY Bengay Ultra Strength 4-30-10 % Cream 1 applic TOPICAL PRN PRN (Reason: Pain) Rx Instructions: neck pain ibuprofen 400 mg tablet 400 mg PO Q6H PRN (Reason: fever or pain) Qty: 14 0RF metoprolol succinate 50 mg tablet extended release 24 hr 50 mg PO QAM Qty: 90 0RF perindopril erbumine 2 mg tablet 2 mg PO DAILY Qty: 90 0RF Follow-up/Referrals: Christine Ray PA-C [Primary Care Provider, [facility]]
--- NOTE | 2025-08-05 14:14 | PM.IMHP2 ---
H&P: HPI History of Present Illness Date/Time: 08/05/25 14:14 Chief Complaint: Dyspnea Narrative: 84-year-old female with a past medical history of hypertension, cardiomyopathy, AFib, depression presents to the ED on 08/05/2025 with complaints of fatigue and exertional dyspnea. She tracks her heart rate and states she has been consistently running in the low 100s. She states she is typically in the low 100s but she presented today because while her heart rate was elevated she also felt shaky in her hands. She denies chest pain, nausea. She also endorses recent weight gain but feels that it is more in her trunk area. She states that her pants fit different in the thigh area now. Her dyspnea is intermittent and does not necessarily occur with activity. Chart review reveals this has been ongoing for at least 2 years along with intermittent complaints of elevated heart rate. She was found to be in AFib RVR in December 2022 and underwent ALEE guided DCCV on 01/17/2023 with conversion to sinus rhythm after 1 shock. The admission in December 2022 was her first documented encounter showing AFib. Patient does follow Dr. Gill on outpatient basis. She takes Eliquis and metoprolol for her AFib. Initial vital signs 149/107, HR 119, respirations 20, afebrile and 99% on room air. Labs mostly unremarkable. AST elevated slightly at 41. BNP 2049. Troponins negative. Initial EKG reads a flutter/tachycardia with RVR. Rate 120. Chest x-ray reads trace left pleural effusion and COPD changes. Review of Systems Review of Systems: All systems reviewed & are unremarkable except as noted in HPI and below [facility] Past Medical History Medical History (Updated 08/05/25 @ 21:29 by Arminda Chiu APRN) Major depression, recurrent, chronic History of basal cell carcinoma (BCC) Elevated serum creatinine Heart murmur Cardiomyopathy IBS (irritable bowel syndrome) RLQ abdominal mass Basal cell carcinoma of right jewish region Benign familial tremor Chronic allergic rhinitis Essential (primary) hypertension Low back pain at multiple sites OAB (overactive bladder) (08/06/18) Surgical History Surgical History Hx of cataract surgery History of cholecystectomy Family History Family History Father Family history of lung cancer Diabetes mellitus Sibling Family history of lung cancer Mother Family history of congestive heart failure Cerebrovascular accident Other Family history of cardiovascular disease Family history of chronic obstructive pulmonary disease Hypertension Social History Social History Social History: Pt is somewhat confident in filling out medical forms. Pt has received assistance paying for medications. Smoking status: Never smoker Tobacco type: cigars Second hand tobacco smoke exposure: Yes Alcohol intake: current Drinks per week: 7 Substance use: never Substance use type: does not use Lack of Transportation: No Lack of Food: Never True Current Housing: I Have Housing Concerned About Future Housing: No Difficulty Paying Gas/Electric Bills: No Difficulty Paying for Meds: YES Currently Unemployed: No Education: Trade/Vocational Certificate Difficulty w/ Childcare or Family Care: No Living arrangements: alone Occupation/Education: unemployed Gender identity (if verbalized by the patient): Female Sexual Orientation (if Verbalized by the Patient): Straight or Heterosexual Spiritual care concerns: No Agree to blood products: Yes Meds Home Medications and Allergies Home Medications ?Medication ?Instructions ?Recorded ?Confirmed ?Type fluticasone propionate 50 2 spray intranasal DAILY 11/05/22 08/05/25 History mcg/actuation nasal spray,suspension ibuprofen 200 mg tablet 600 mg PO Q6H PRN pain 11/05/22 08/05/25 History Held on 01/17/23. Instructions: until seen by her primary care camphor 4 %-methyl salicylate 30 1 applic topical PRN PRN Pain 01/15/23 08/05/25 History %-menthol 10 % topical cream (Bengay Ultra Strength) multivit with minerals-iron 18 1 tablet PO DAILY 01/15/23 08/05/25 History mg-folic ac 400 mcg-vit K 25 mcg tablet (Adults Multivitamin) vitamin E 800 unit capsule 800 unit PO DAILY 01/15/23 08/05/25 History apixaban 2.5 mg tablet (Eliquis) 2.5 mg PO BID 03/28/23 08/05/25 History ibuprofen 400 mg tablet 400 mg PO Q6H PRN fever or pain 04/18/23 08/05/25 Rx #14 tabs biotin 10,000 mcg chewable tablet 10,000 mcg PO DAILY 08/02/23 08/05/25 History (Hair, Skin and Nails (biotin)) probiotic 243 mg BYMOUTH DAILY 10/18/23 08/05/25 History metoprolol succinate 50 mg 50 mg PO QAM #90 tabs 05/17/25 08/05/25 Rx tablet,extended release 24 hr perindopril erbumine 2 mg tablet 2 mg PO DAILY #90 tabs 07/06/25 08/05/25 Rx Allergies Allergy/AdvReac Type Severity Reaction Status Date / Time acetaminophen (From Vicodin) Allergy Severe Swelling Verified 08/05/25 16:30 of Lip/Tongue/Throat hydrocodone Allergy Severe Anaphylactic Verified 08/05/25 16:30 Shock cefuroxime Allergy Intermediate Hives Verified 08/05/25 16:30 propoxyphene Allergy Mild NECK Verified 08/05/25 16:30 SWELLING Sulfa (Sulfonamide Allergy Mild Nausea Verified 08/05/25 16:30 Antibiotics) prednisone AdvReac Dizziness Verified 08/05/25 16:30 FISH Allergy Severe THROAT Uncoded 10/01/24 13:25 SWELLS Vital Signs Vital Signs - 24 hr 08/05/25 11:23 08/05/25 11:28 08/05/25 11:43 Temperature 98.0 F Pulse Rate 119 H 120 H Respiratory Rate 20 30 H Blood Pressure 149/107 H Pulse Oximetry 99 100 Oxygen Delivery Room Air Room Air 08/05/25 11:45 08/05/25 11:46 08/05/25 11:59 Temperature Pulse Rate 121 H 121 H 120 H Respiratory Rate 19 20 20 Blood Pressure 127/95 H 138/98 H Pulse Oximetry 100 99 98 Oxygen Delivery 08/05/25 12:00 08/05/25 12:01 08/05/25 12:02 Temperature Pulse Rate 121 H 121 H 120 H Respiratory Rate 21 H 21 H 22 H Blood Pressure 132/99 H Pulse Oximetry 98 98 98 Oxygen Delivery 08/05/25 12:23 08/05/25 12:30 08/05/25 12:31 Temperature Pulse Rate 121 H 120 H 120 H Respiratory Rate 22 H 26 H 19 Blood Pressure 136/99 H Pulse Oximetry 97 93 96 Oxygen Delivery 08/05/25 12:32 08/05/25 12:46 08/05/25 12:47 Temperature Pulse Rate 120 H 120 H 120 H Respiratory Rate 22 H 20 Blood Pressure 138/88 Pulse Oximetry 96 97 Oxygen Delivery 08/05/25 12:48 08/05/25 12:50 08/05/25 13:07 Temperature Pulse Rate 118 H 116 H 115 H Respiratory Rate 20 20 15 Blood Pressure 148/106 H Pulse Oximetry 97 97 98 Oxygen Delivery 08/05/25 13:12 08/05/25 13:13 08/05/25 13:13 Temperature Pulse Rate 118 H 118 H 118 H Respiratory Rate 17 19 Blood Pressure 134/93 H Pulse Oximetry 94 96 Oxygen Delivery 08/05/25 13:15 08/05/25 13:16 08/05/25 13:16 Temperature Pulse Rate 118 H 118 H 118 H Respiratory Rate 17 20 18 Blood Pressure 133/92 H 133/92 H Pulse Oximetry 96 95 94 Oxygen Delivery 08/05/25 13:29 08/05/25 13:30 08/05/25 13:31 Temperature Pulse Rate 118 H 118 H 118 H Respiratory Rate 20 18 16 Blood Pressure 138/100 H 137/103 H Pulse Oximetry 96 97 95 Oxygen Delivery 08/05/25 13:45 08/05/25 13:46 08/05/25 14:04 Temperature Pulse Rate 118 H 118 H 117 H Respiratory Rate 14 17 33 H Blood Pressure 141/104 H Pulse Oximetry 95 96 96 Oxygen Delivery 08/05/25 14:07 Temperature Pulse Rate 119 H Respiratory Rate 19 Blood Pressure 140/103 H Pulse Oximetry 100 Oxygen Delivery Exam Narrative: GENERAL: non-toxic appearing, in no acute distress. HEAD: Normocephalic, atraumatic. EYES: Conjunctivae clear. NOSE: Normal no drainage. THROAT: Pharynx clear, no exudate. NECK: Trachea midline. No adenopathy, no masses. RESPIRATORY: Airway patent, respirations nonlabored. CTA. CARDIOVASCULAR: Tachycardic with regular rhythm BREASTS: Defer GASTROINTESTINAL: Abdomen is soft and nontender. No organomegaly. Bowel sounds normal in all quadrants. GENITOURINARY: Defer MUSCULOSKELETAL: Moves all extremities. No gross deformities. No edema SKIN: Warm, dry, normal color. NEURO: A&O X4. Speech clear PSYCHIATRIC: Normal interaction Results Labs Labs: Short CBC 08/05/25 Range/Units 11:43 WBC 5.7 (4.5-10.0) K/mm3 Hgb 13.3 (12.0-15.0) g/dL Hct 39.1 (37.0-47.0) % Plt Count 218 (150-375) k/mm3 BMP 08/05/25 11:43 Sodium 137 Potassium 4.1 Chloride 103 Carbon Dioxide 27 BUN 17 Creatinine 0.92 Glucose 102 Calcium 9.9 Cardiac Enzymes 08/05/25 Range/Units 11:43 Troponin I < 0.012 (0.000-0.034) ng/mL Liver Function 08/05/25 Range/Units 11:43 Total Bilirubin 1.1 (0.2-1.3) mg/dL AST 41 H (14-36) U/L ALT 20 (6-35) U/L Alkaline Phosphatase 70 (38-126) U/L Albumin 4.5 (3.5-5.1) g/dL Quality VTE Prophylaxis VTE prophylaxis: mechanical ordered Assessment and Plan Assessment and plan (1) Atrial flutter with rapid ventricular response: Code(s): I48.92 - Unspecified atrial flutter Status: Acute Assessment and Plan: Initial EKG reads a flutter/tachycardia with RVR. Rate 120. Given total of 7.5 mg IVP metoprolol tartrate in the ED with little improvement in her heart rate. On telemetry, the patient's rate is regular. Cardiology note from 03/08/2025 states her most recent echo showed preserved systolic function, MVP and moderate MR. -cardiology consult -continue 2.5 mg b.i.d. Eliquis -continue 50 mg metoprolol succinate daily -echo ordered (2) Dyspnea: Qualifiers: Dyspnea type: dyspnea on exertion Qualified Code(s): R06.09 - Other forms of dyspnea Code(s): R06.00 - Dyspnea, unspecified Status: Chronic Assessment and Plan: Has been present for at least 2 years intermittently. Does not necessarily coincide with activity. Chest x-ray reads trace left pleural effusion and COPD changes. Differential diagnosis include AFib, COPD, deconditioning. -monitor respiratory status -holding off on diuresis as patient does not appear overloaded and is not in respiratory distress. (3) Essential (primary) hypertension: Code(s): I10 - Essential (primary) hypertension Status: Chronic Assessment and Plan: Continue metoprolol and perindopril if someone is able to bring her home supply. Plan Diet: Heart healthy DVT prophylaxis: SCDs lines/drains: PIV Fluids: NA Code status: Full Prior Studies I have reviewed the following patient records and this information was taken into consideration when formulating the assessment and plan.: previous labs, previous ER visits, previous hospitalizations and previous clinic visits Time Spent with Patient Time with patient: 45 - 74 minutes Hospitalist [facility] Advance Care Plan I have confirmed that the patient's Advanced Care Plan is present, code status is documented, or surrogate decision maker is listed in patient medical record.: Yes Medication Reconciliation I have utilized all available resources to obtain, update and review the patients current medications (includes all prescriptions, OTC, herbals, cannabis, and nutritional supplements).: Yes
[2025-08-05 14:21] LABS: Add Urine Microscopic? YES; Appearance Urine Clear (Clear); Glucose Urine UA Negative (Negative); Leukocyte Esterase Ur Trace LEU/UL (Negative); Nitrate Urine Negative (Negative); Non Pathogenic Casts 0-2; Specific Grav Ur 1.008 (1.001-1.035)
--- NOTE | 2025-08-05 14:21 | WPCEDHO ---
ED Hand Off Checklist All vitals saved:y IV Site documented:y All med administrations documented:y Triage Note Triage Note Pt states her heart feels like it 08/05/25 11:23 is racing and beating out of her chest. States has some SOB. Hx of afib. Pt states she is on Eliquis and beta blockers for her afib Allergies acetaminophen (From Vicodin) Allergy (Severe, Verified 08/05/25 11:30) Swelling of Lip/Tongue/Throat hydrocodone Allergy (Severe, Verified 08/05/25 11:30) Anaphylactic Shock cefuroxime Allergy (Intermediate, Verified 08/05/25 11:30) Hives propoxyphene Allergy (Mild, Verified 08/05/25 11:30) NECK SWELLING Sulfa (Sulfonamide Antibiotics) Allergy (Mild, Verified 08/05/25 11:30) Nausea prednisone Adverse Reaction (Verified 08/05/25 11:30) Dizziness FISH Allergy (Severe, Uncoded 10/01/24 13:25) THROAT SWELLS Family History (Last Reviewed 08/05/25 @ 13:41 by Cameron Ochoa MD) Father Family history of lung cancer Diabetes mellitus Sibling Family history of lung cancer Mother Family history of congestive heart failure Cerebrovascular accident Other Family history of cardiovascular disease Family history of chronic obstructive pulmonary disease Hypertension Administered/Completed Medications Discontinued Medications Metoprolol Tartrate (Metoprolol Tartrate Inj 5 Mg/5 Ml Vial) 2.5 mg IV PUSH ONCE STA Stop: 08/05/25 12:41 Last Admin: 08/05/25 12:46 Dose: 2.5 mg Documented By: DOUG Metoprolol Tartrate (Metoprolol Tartrate Inj 5 Mg/5 Ml Vial) 5 mg IV PUSH ONCE STA Stop: 08/05/25 13:07 Last Admin: 08/05/25 13:13 Dose: 5 mg Documented By: DOUG Interventions/Assessments IV / Saline Lock, Insert Start: 08/05/25 11:15 Freq: Status: Active Protocol: Document 08/05/25 11:38 CMM (Rec: 08/05/25 11:39 CMM [id number]) IV Assessment Peripheral Access Left Forearm IV Catheter Access Initiated IV Insertion Date 08/05/25 IV Insertion Time 11:39 Catheter Gauge 20 IV Site Assessment WNL IV Care and WNL Maintenance IV / Saline Lock, Insert Start: 08/05/25 11:40 Freq: STAT Status: Active Protocol: Document 08/05/25 11:41 CMM (Rec: 08/05/25 11:41 CMM [id number]) IV Assessment Peripheral Access Left Forearm IV Catheter Access Continued PA: Cardiovascular Assessment Start: 08/05/25 11:15 Freq: Status: Active Protocol: Document 08/05/25 11:28 CMM (Rec: 08/05/25 11:29 CMM [id number]) Cardiovascular Assessment Cardiovascular Palpitations Symptoms Skin Description Normal Color PA: Respiratory Assessment Start: 08/05/25 11:15 Freq: Status: Active Protocol: Document 08/05/25 11:28 CMM (Rec: 08/05/25 11:29 CMM [id number]) Respiratory Assessment Symptoms Shortness of Breath With Exertion Effort Normal Pattern Regular Depth Normal Chest Expansion Symmetrical Bilateral Upper Lobe(s) Phase Inspiratory & Expiratory Lung Sounds Clear Cough Description None Oxygen Delivery Oxygen Delivery Room Air Last Vital Signs Temperature 98.0 F 08/05/25 11:23 Pulse Rate 119 H 08/05/25 14:20 Respiratory Rate 20 08/05/25 14:20 Pulse Oximetry 97 08/05/25 14:20 Blood Pressure 142/104 H 08/05/25 14:20 Blood Pressure Mean 116 08/05/25 14:20 Blood Pressure Position Sitting 08/05/25 13:16 Oxygen Delivery Room Air 08/05/25 11:28 Weight 61.6 kg 08/05/25 11:23 Last Result - Abnormals Only RBC 4.10 M/mm3 (4.2-5.4) L 08/05/25 11:43 [place] % (Auto) 10.7 % (2.6-8.5) H 08/05/25 11:43 Estimated GFR 58 (59-) L 08/05/25 11:43 AST 41 U/L (14-36) H 08/05/25 11:43 NT-Pro-B Natriuret Pep 2050 pg/mL (19.9-100) H 08/05/25 11:43 Most Recent Suicide Severity Rating Suicide Severity Rating NO RISK INDICATED 08/05/25 11:23
[2025-08-05 17:05] LABS: Troponin I < 0.012 ng/mL (0.000-0.034)
[2025-08-05 19:54] LABS: Troponin I < 0.012 ng/mL (0.000-0.034)
--- NOTE | 2025-08-05 21:25 | ECG_ITS ---
Test Date: 2025-08-05 21:43:20 Measurements Intervals [place] Rate: 121 P: 0 AK: 0 QRS: -42 QRSD: 96 T: -23 QT: 305 QTc: 433 Interpretive Statements ATRIAL FLUTTER/TACHYCARDIA WITH RAPID VENTRICULAR RESPONSE LEFT AXIS DEVIATION INCOMPLETE RIGHT BUNDLE BRANCH BLOCK CANNOT R/O SEPTAL INFARCT, AGE INDETERMINATE NONSPECIFIC ST & T-WAVE ABNORMALITY- ANTEROLAT/INF LEADS ABNORMAL ECG Compared to ECG 08/05/2025 11:25:05 NO SIGNIFICANT CHANGE Electronically Signed On 08-06-2025 06:19:42 SENIOR APPLICATIONS ENGINEER by Demarco Gunter D.O.
[2025-08-06] VITALS (25 sets, daily range): BP systolic 88–136; BP diastolic 50–98; PULSE 63–126; RESP 12–20; TEMP 36.3–37; O2SAT 93–100
--- NOTE | 2025-08-06 | ECHO_ITS ---
Patient Info Name: Lance Vargas Age: 84 years : 1940 Gender: Female Ht: 60 in Wt: 135 lbs BSA: 1.63 m2 HR: 122 bpm BP: 114 / 72 mmHg Heart Rhythm: Tachycardia Technical Quality: Good Exam Date: 08/06/2025 8:09 AM Patient Status: O Admit Date: 08/05/2025 Exam Type: CA echo doppler color flow Complete two-dimensional, color flow and Doppler transthoracic echocardiogram is performed. Staff Referring Physician: Yared Zavala MD Glazing Machine Operator: Sheree Roa Attending Provider: Corby Salmon MD Summary 1. Complete two-dimensional, color flow and Doppler transthoracic echocardiogram is performed. 2. There is normal biventricular size and systolic function. 3. There is mild left atrial enlargement. 4. There is mild eccentric left ventricular hypertrophy. 5. There are no significant valvular abnormalities. Left Ventricle The left ventricle is normal in size and systolic function. There is mild eccentric left ventricular hypertrophy. The left ventricular ejection fraction is visually estimated to be 60-65%. Right Ventricle The right ventricle is normal in size and systolic function. Left Atria The left atrium is mildly dilated. Right Atria The right atrium is normal size. Atrial Septum The atrial septum is not well visualized. Aortic Valve The aortic valve is trileaflet and sclerotic. There is no aortic stenosis or regurgitation. Pulmonic Valve The pulmonic valve is grossly normal. There is trace pulmonic valve regurgitation. Mitral Valve The mitral valve leaflets are sclerotic. There is mild mitral regurgitation. There is severe mitral annular calcification. Tricuspid Valve The tricuspid valve is normal. There is mild tricuspid regurgitation. Pericardium/Pleural Pericardium is normal in appearance with no evidence for significant pericardial effusion. Inferior Vena Cava Inferior vena cava is not well visualized. Aorta The aortic root at the level of the sinus of Valsalva measures 3.2 cm in diameter. Left Ventricular Outflow Tract Name Value Normal LVOT 2D LVOT Diameter 2.0 cm LVOT Doppler LVOT Peak Velocity 76 cm/s LVOT Peak Gradient 2 mmHg LVOT Mean Gradient 1 mmHg LVOT VTI 13 cm LVOT VTI/AV VTI Ratio 0.7 LVOT Stroke Volume 40 ml LVOT CO 4.9 l/min LVOT CI 3.0 l/min/m2 Pulmonic Valve Name Value Normal RVOT Doppler RVOT Peak Velocity 50 cm/s RVOT Peak Gradient 1 mmHg PV Doppler PV Peak Velocity 82 cm/s PV Peak Gradient 3 mmHg Mitral Valve Name Value Normal MV Regurgitation Doppler MR Peak Gradient 91 mmHg MV Diastolic Function MV E Peak Velocity 112 cm/s MV A Peak Velocity 1 cm/s MV E/A 94.3 MV Decel Time (PW) 115 ms MV Annular TDI MV E/e' (Septal) 24.6 MV E/e' (Lateral) 14.7 MV E/e' (Average) 19.7 Tricuspid Valve Name Value Normal TV Regurgitation Doppler TR Peak Velocity 238 cm/s TR Peak Gradient 23 mmHg Estimated PAP/RSVP RA Pressure 10 mmHg <=5 PA Systolic Pressure 33 mmHg <36 RV Systolic Pressure 33 mmHg <36 TV Annular TDI TV Lateral Maira s' Velocity 8.4 cm/s >=9.5 Aorta Name Value Normal Ascending Aorta Ao Root Diameter (MM) 3.0 cm Ao Root Diam Index (MM) 1.9 cm/m2 Aortic Valve Name Value Normal AV Doppler AV Peak Velocity 123 cm/s AV Peak Gradient 6 mmHg AV Mean Gradient 4 mmHg AV VTI 19 cm AV Area (Cont Eq VTI) 2.1 cm2 >=3.0 AV Area (Cont Eq Bandar) 1.9 cm2 AV DI (Bandar) 0.62 AV Regurgitation 2D LVOT Area 3.0 cm2 Ventricles Name Value Normal LV Dimensions 2D/MM IVS Diastolic Thickness (2D) 1.0 cm 0.6-1.0 LVID Diastole (2D) 5.3 cm 3.8-5.2 LVIW Diastolic Thickness (2D) 1.0 cm 0.6-0.9 LVID Systole (2D) 3.4 cm 2.2-3.5 LVOT Diameter 2.0 cm LV Mass (2D Cubed) 189.04 g 67.00-162.00 LV Mass Index (2D Cubed) 116 g/m2 43-95 Relative Wall Thickness (2D) 0.36 <=0.42 LV Fractional Shortening/Ejection Fraction 2D/MM LV Fractional Shortening (2D) 36 % 27-45 LV EF (2D Teichholz) 65 % LV Diastolic Volume (4C MOD) 46 ml LV EF (4C MOD) 61 % LV Diastolic Volume (2C MOD) 49 ml LV EF (2C MOD) 67 % LV Diastolic Volume (BP MOD) 49 ml 46-106 LV Diastolic Volume Index (BP MOD) 30 ml/m2 29-61 LV Systolic Volume (BP MOD) 18 ml 14-42 LV Systolic Volume Index (BP MOD) 11 ml/m2 8-24 LV EF (BP MOD) 63 % 54-74 LV Diastolic Length (4C) 6.0 cm LV Systolic Length (4C) 5.6 cm LV Stroke Volume (4C MOD) 28 ml Atria Name Value Normal LA Dimensions LA Dimension (MM) 4.5 cm 2.7-3.8 LA Volume (4C A-L) 68 ml LA Volume (BP A-L) 64 ml RA Dimensions RA Area (4C) 22.3 cm2 <=18.0 Report Signatures
[2025-08-06] MEDS: FLUTICASONE PROPIONATE 0.05% NA SPR 16 GM BTL (*BKC) 2 SPRAY NASAL (03:25)
[2025-08-06 04:16] LABS: Hematocrit 34.9 % (37.0-47.0); Hemoglobin 11.6 g/dL (12.0-15.0); Immature Granulocyte Percent A 0.2 % (0-0.5); Lymphocytes Absolute Auto 1.56 K/mm3 (0.9-3.2); Mean Corpuscular HGB Conc 33.2 g/dl (32-36); Mean Corpuscular Hemoglobin 31.8 pg (26-34); Mean Corpuscular Volume 95.6 fl (80-100); Nucleated Red Blood Cells Absolute Auto 0.000 K/mm3 (0.0-0.012); Nucleated Red Blood Cells Perc 0.0 % (0.0-0.2); Platelet Count Result 195 k/mm3 (150-375); Red Blood Count 3.65 M/mm3 (4.2-5.4); White Blood Count 4.3 K/mm3 (4.5-10.0)
[2025-08-06 04:27] LABS: Anion Gap 1 mmol/L (4-12); Blood Urea Nitrogen 17 mg/dL (7-17); Calcium 9.3 mg/dL (8.4-10.2); Carbon Dioxide 28 mmol/L (22-30); Chloride 104 mmol/L (98-107); Estimated CRCL calculation 32 ml/min; Estimated Glomerular Filt Rate 55; Glucose 102 mg/dL (65-110); Potassium 3.8 mmol/L (3.4-5.0); Sodium 133 mmol/L (137-145)
--- NOTE | 2025-08-06 08:37 | P.PNIM_ITS ---
Assessment and Plan Assessment and Plan (1) Atrial flutter with rapid ventricular response: Code(s): I48.92 - Unspecified atrial flutter Status: Acute Assessment and Plan: Initial EKG reads a flutter/tachycardia with RVR. Rate 120. Given total of 7.5 mg IVP metoprolol tartrate in the ED with little improvement in her heart rate. On telemetry, the patient's rate is regular. * Cardiology note from 03/08/2025 states her most recent echo showed preserved systolic function, MVP and moderate MR. * Continue 2.5 mg b.i.d. Eliquis * Continue 50 mg metoprolol succinate daily * Echo ordered * Cardiology consult * Successfully cardioverted to NSR on 08/06 * Continue amiodarone 400 mg p.o. b.i.d. for 1 week and then 200 mg p.o. daily thereafter * F/u w/ cardiology in 1-2 weeks (2) Dyspnea: Qualifiers: Dyspnea type: dyspnea on exertion Qualified Code(s): R06.09 - Other forms of dyspnea Code(s): R06.00 - Dyspnea, unspecified Status: Chronic Assessment and Plan: Has been present for at least 2 years intermittently. Does not necessarily coincide with activity. Chest x-ray reads trace left pleural effusion and COPD changes. Differential diagnosis include AFib, COPD, deconditioning. * monitor respiratory status * holding off on diuresis as patient does not appear overloaded and is not in respiratory distress. (3) Essential (primary) hypertension: Code(s): I10 - Essential (primary) hypertension Status: Chronic Assessment and Plan: * Continue metoprolol and perindopril if someone is able to bring her home supply. Plan Diet: Heart healthy DVT prophylaxis: SCDs lines/drains: PIV Fluids: NA Code status: Full Subjective Date/time seen: 08/06/25 08:37 Interval history: 84-year-old female with a past medical history of hypertension, cardiomyopathy, AFib, depression presents to the ED on 08/05/2025 with complaints of fatigue and exertional dyspnea. She tracks her heart rate and states she has been consistently running in the low 100s. 08/06/2025 Patient sitting comfortably in bed at time of exam. Patient underwent cardioversion today per Dr. Deras of Cardiology. She has successfully converted to NSR. She states she is feeling much better after cardioversion: denies any CP, S OB, n/v, abd pain. Plan to observe overnight with hopeful discharge tomorrow. Review of Systems Review of Systems: All systems reviewed & are unremarkable except as noted in HPI and below Exam Narrative: GENERAL: non-toxic appearing, in no acute distress. HEAD: Normocephalic, atraumatic. EYES: Conjunctivae clear. NOSE: Normal no drainage. THROAT: Pharynx clear, no exudate. NECK: Trachea midline. No adenopathy, no masses. RESPIRATORY: Airway patent, respirations nonlabored. CTA. CARDIOVASCULAR: Tachycardic with regular rhythm BREASTS: Defer GASTROINTESTINAL: Abdomen is soft and nontender. No organomegaly. Bowel sound s normal in all quadrants. GENITOURINARY: Defer MUSCULOSKELETAL: Moves all extremities. No gross deformities. No edema SKIN: Warm, dry, normal color. NEURO: A&O X4. Speech clear PSYCHIATRIC: Normal interaction Objective Data Vital Signs Vital Signs: Vital Signs - 24 hr 08/05/25 11:23 08/05/25 11:28 08/05/25 11:43 Temperature 98.0 F Pulse Rate 119 H 120 H Respiratory Rate 20 30 H Blood Pressure 149/107 H Pulse Oximetry 99 100 Oxygen Delivery Room Air Room Air 08/05/25 11:45 08/05/25 11:46 08/05/25 11:59 Temperature Pulse Rate 121 H 121 H 120 H Respiratory Rate 19 20 20 Blood Pressure 127/95 H 138/98 H Pulse Oximetry 100 99 98 Oxygen Delivery 08/05/25 12:00 08/05/25 12:01 08/05/25 12:02 Temperature Pulse Rate 121 H 121 H 120 H Respiratory Rate 21 H 21 H 22 H Blood Pressure 132/99 H Pulse Oximetry 98 98 98 Oxygen Delivery 08/05/25 12:23 08/05/25 12:30 08/05/25 12:31 Temperature Pulse Rate 121 H 120 H 120 H Respiratory Rate 22 H 26 H 19 Blood Pressure 136/99 H Pulse Oximetry 97 93 96 Oxygen Delivery 08/05/25 12:32 08/05/25 12:46 08/05/25 12:47 Temperature Pulse Rate 120 H 120 H 120 H Respiratory Rate 22 H 20 Blood Pressure 138/88 Pulse Oximetry 96 97 Oxygen Delivery 08/05/25 12:48 08/05/25 12:50 08/05/25 13:07 Temperature Pulse Rate 118 H 116 H 115 H Respiratory Rate 20 20 15 Blood Pressure 148/106 H Pulse Oximetry 97 97 98 Oxygen Delivery 08/05/25 13:12 08/05/25 13:13 08/05/25 13:13 Temperature Pulse Rate 118 H 118 H 118 H Respiratory Rate 17 19 Blood Pressure 134/93 H Pulse Oximetry 94 96 Oxygen Delivery 08/05/25 13:15 08/05/25 13:16 08/05/25 13:16 Temperature Pulse Rate 118 H 118 H 118 H Respiratory Rate 17 20 18 Blood Pressure 133/92 H 133/92 H Pulse Oximetry 96 95 94 Oxygen Delivery 08/05/25 13:29 08/05/25 13:30 08/05/25 13:31 Temperature Pulse Rate 118 H 118 H 118 H Respiratory Rate 20 18 16 Blood Pressure 138/100 H 137/103 H Pulse Oximetry 96 97 95 Oxygen Delivery 08/05/25 13:45 08/05/25 13:46 08/05/25 14:04 Temperature Pulse Rate 118 H 118 H 117 H Respiratory Rate 14 17 33 H Blood Pressure 141/104 H Pulse Oximetry 95 96 96 Oxygen Delivery 08/05/25 14:07 08/05/25 14:08 08/05/25 14:15 Temperature Pulse Rate 119 H 118 H 119 H Respiratory Rate 19 22 H 27 H Blood Pressure 140/103 H Pulse Oximetry 100 100 99 Oxygen Delivery 08/05/25 14:16 08/05/25 14:20 08/05/25 16:00 Temperature Pulse Rate 120 H 119 H 118 H Respiratory Rate 22 H 20 12 Blood Pressure 143/104 H 142/104 H Pulse Oximetry 99 97 98 Oxygen Delivery Room Air 08/05/25 16:00 08/05/25 16:00 08/05/25 20:00 Temperature 98.4 F 98.4 F Pulse Rate 118 H 118 H 121 H Respiratory Rate 12 12 Blood Pressure 133/85 117/79 Pulse Oximetry 98 95 Oxygen Delivery 08/05/25 20:00 08/05/25 22:00 08/06/25 00:00 Temperature 98.6 F Pulse Rate 120 H 121 H 121 H Respiratory Rate 12 Blood Pressure 117/78 Pulse Oximetry 94 Oxygen Delivery 08/06/25 00:00 08/06/25 02:00 08/06/25 03:34 Temperature 97.4 F L Pulse Rate 120 H 119 H 119 H Respiratory Rate 14 Blood Pressure 114/72 Pulse Oximetry 94 Oxygen Delivery 08/06/25 04:00 08/06/25 06:00 08/06/25 08:00 Temperature 98.5 F Pulse Rate 120 H 120 H 123 H Respiratory Rate 20 Blood Pressure 99/50 L Pulse Oximetry 97 Oxygen Delivery Intake/Output Intake/Output: Intake & Output 08/03/25 08/04/25 08/05/25 08/06/25 23:59 23:59 23:59 23:59 Intake Total 240 Balance 240 Meds/Results Medications: Active Medications Generic Name Dose Route Start Last Admin Trade Name Freq PRN Reason Stop Dose Admin Apixaban 2.5 mg 08/06/25 09:00 Apixaban 2.5 Mg Tablet PO BID [facility] Fluticasone Propionate 2 spray 08/06/25 09:00 08/06/25 03:25 Fluticasone Propionate 0.05% Na Spr 16 Gm Btl (*Bkc) NASAL 2 spray DAILY [facility] Administration Metoprolol Succinate 50 mg 08/06/25 09:00 Metoprolol Succinate Ext Rel 50 Mg Tabcr PO QAM [facility] Miscellaneous Information 0 each 08/05/25 00:01 Perindopril Nonform Can Pt Bring From Home? XX 09/04/25 00:00 CLARIFY [facility] Multivitamins/Minerals 1 tab 08/06/25 09:00 Multivitamins /C Lutein (Centrum Silver) Tablet *Bkc PO DAILY [facility] Non-Formulary Medication 2 mg 08/06/25 09:00 Perindopril Erbumine PO 09/05/25 08:59 DAILY [facility] Ondansetron HCl 4 mg 08/05/25 13:54 Ondansetron Inj 4 Mg/2 Ml Vial IV PUSH Q4H PRN Nausea Perflutren Lipid Microsphere 0 ml 08/05/25 20:01 Perflutren Lipid Microspheres 1.5 Ml Vial Diluted To 10 Ml Total Volume IV PUSH 08/08/25 20:01 ONCE PRN adequate visualization Protocol Radiology Results: ITS Impressions Chest X-Ray 08/05/25 11:59 Impression: Trace left pleural effusion Labs Labs: Laboratory Results - last 24 hr 08/05/25 08/05/25 08/05/25 11:43 14:05 16:21 WBC 5.7 RBC 4.10 L Hgb 13.3 Hct 39.1 MCV 95.4 MCH 32.4 MCHC 34.0 RDW 11.7 Plt Count 218 MPV 9.4 Immature Gran % (Auto) 0.4 Neut % (Auto) 56.2 Lymph % (Auto) 29.2 [place] % (Auto) 10.7 H Eos % (Auto) 3.3 Baso % (Auto) 0.2 Lymph # (Auto) 1.67 [place] # (Auto) 0.6 Eos # (Auto) 0.2 Baso # (Auto) 0.0 Abs Immat Gran (auto) 0.02 Absolute Neuts (auto) 3.2 Absolute Nucleated RBC 0.000 Nucleated RBC % 0.0 PT 13.6 INR 1.0 APTT 25.6 Sodium 137 Potassium 4.1 Chloride 103 Carbon Dioxide 27 Anion Gap 7 BUN 17 Creatinine 0.92 Estim Creat Clear Calc 34 Estimated GFR 58 L Glucose 102 Calcium 9.9 Magnesium 2.2 Total Bilirubin 1.1 AST 41 H ALT 20 Alkaline Phosphatase 70 Troponin I < 0.012 < 0.012 NT-Pro-B Natriuret Pep 2050 H Total Protein 8.0 Albumin 4.5 Lipase 185 Urine Color Yellow Urine Appearance Clear Urine pH 7.0 Ur Specific [place] 1.008 Urine Protein Negative Urine Glucose (UA) Negative Urine Ketones Negative Ur Blood (Man) Negative Urine Nitrate Negative Urine Bilirubin Negative Urine Urobilinogen 0.2 Leukocyte Esterase Rfl Trace H Urine RBC 0-2 Urine WBC 0-5 Ur Squamous Epith Cells None seen Urine Bacteria None seen Urine Casts 0-2 08/05/25 08/06/25 19:08 03:48 WBC 4.3 L RBC 3.65 L Hgb 11.6 L Hct 34.9 L MCV 95.6 MCH 31.8 MCHC 33.2 RDW 11.7 Plt Count 195 MPV 9.9 Immature Gran % (Auto) 0.2 Neut % (Auto) 45.1 L Lymph % (Auto) 36.6 [place] % (Auto) 12.7 H Eos % (Auto) 4.9 H Baso % (Auto) 0.5 Lymph # (Auto) 1.56 [place] # (Auto) 0.5 Eos # (Auto) 0.2 Baso # (Auto) 0.0 Abs Immat Gran (auto) 0.01 Absolute Neuts (auto) 1.9 Absolute Nucleated RBC 0.000 Nucleated RBC % 0.0 PT INR APTT Sodium 133 L Potassium 3.8 Chloride 104 Carbon Dioxide 28 Anion Gap 1 L BUN 17 Creatinine 0.97 Estim Creat Clear Calc 32 Estimated GFR 55 L Glucose 102 Calcium 9.3 Magnesium Total Bilirubin AST ALT Alkaline Phosphatase Troponin I < 0.012 NT-Pro-B Natriuret Pep Total Protein Albumin Lipase Urine Color Urine Appearance Urine pH Ur Specific [place] Urine Protein Urine Glucose (UA) Urine Ketones Ur Blood (Man) Urine Nitrate Urine Bilirubin Urine Urobilinogen Leukocyte Esterase Rfl Urine RBC Urine WBC Ur Squamous Epith Cells Urine Bacteria Urine Casts Quality VTE Prophylaxis VTE prophylaxis: mechanical ordered
[2025-08-06] MEDS: METOPROLOL SUCCINATE EXT REL 50 MG TABCR PO (10:07)
[2025-08-06] MEDS: APIXABAN 2.5 MG TABLET PO ×2 (10:08→17:18)
[2025-08-06] MEDS: MULTIVITAMINS /C LUTEIN (CENTRUM SILVER) TABLET *BKC 1 TAB PO (10:08)
--- NOTE | 2025-08-06 11:56 | PM.CNCAR ---
Assessment and Plan Assessment and plan (1) Atrial flutter with rapid ventricular response: Code(s): I48.92 - Unspecified atrial flutter Status: Acute Assessment and Plan: Has a history of paroxysmal atrial fibrillation status post cardioversion in 2022. She has been maintained on metoprolol and anticoagulated with apixaban. She presents to the hospital now with shortness of breath and fatigue and has been found to have atrial flutter with rapid ventricular response. Plan for cardioversion this afternoon Outpatient referral to electrophysiology Echocardiogram showed normal LV function, mild MR with severe mitral annular calcification (2) Chronic anticoagulation: Code(s): Z79.01 - diet therapist (current) use of anticoagulants Status: Acute Assessment and Plan: Continue apixaban 2.5 mg b.i.d. (dose adjusted for age, weight) for stroke risk reduction. (3) Essential (primary) hypertension: Code(s): I10 - Essential (primary) hypertension Status: Chronic Assessment and Plan: Blood pressure is at goal. Continue current medical regimen without change. (4) Mitral regurgitation: Code(s): I34.0 - Nonrheumatic mitral (valve) insufficiency Status: Acute Assessment and Plan: As above, repeat echocardiogram this morning showed mild MR with severe mitral annular calcification. Outpatient surveillance with periodic echocardiogram. History of Present Illness History of Present Illness Consult date/time: 08/06/25 11:56 Requesting physician: Arminda Chiu APRN Consult reason: atrial fibrillation Reason For Visit: Atrial Flutter w Rapid Ventricular Response/Dyspne Narrative: Lance Vargas is an 84-year-old female with paroxysmal atrial fibrillation (cardioversion in 2022 with no reported/known recurrence since that time), and moderate mitral regurgitation. This is a patient who presents to the hospital with complaints of fatigue and shortness of breath. She was found to be in atrial flutter with rapid ventricular response, therefore Cardiology has been consulted. She states that she has been having rapid heartbeat for several weeks as well as increased fatigue and exertional shortness of breath. She is also complaining of exertional dyspnea and abdominal distention which has been ongoing for more than 6 months. Review of Systems Review of Systems: All systems reviewed & are unremarkable except as noted in HPI and below PMFSH Past Medical History Medical History Major depression, recurrent, chronic History of basal cell carcinoma (BCC) Elevated serum creatinine Heart murmur Cardiomyopathy IBS (irritable bowel syndrome) RLQ abdominal mass Basal cell carcinoma of right anglic[place] region Benign familial tremor Chronic allergic rhinitis Essential (primary) hypertension Low back pain at multiple sites OAB (overactive bladder) (08/06/18) Surgical History Surgical History Hx of cataract surgery History of cholecystectomy Family History Family History Father Family history of lung cancer Diabetes mellitus Sibling Family history of lung cancer Mother Family history of congestive heart failure Cerebrovascular accident Other Family history of cardiovascular disease Family history of chronic obstructive pulmonary disease Hypertension Social History Social History Social History: Pt is somewhat confident in filling out medical forms. Pt has received assistance paying for medications. Smoking status: Never smoker Tobacco type: cigars Second hand tobacco smoke exposure: Yes Alcohol intake: current Drinks per week: 7 Substance use: never Substance use type: does not use Lack of Transportation: No Lack of Food: Never True Current Housing: I Have Housing Concerned About Future Housing: No Difficulty Paying Gas/Electric Bills: No Difficulty Paying for Meds: YES Currently Unemployed: No Education: Trade/Vocational Certificate Difficulty w/ Childcare or Family Care: No Living arrangements: alone Occupation/Education: unemployed Gender identity (if verbalized by the patient): Female Sexual Orientation (if Verbalized by the Patient): Straight or Heterosexual Spiritual care concerns: No Agree to blood products: Yes Meds Home Medications and Allergies Home Medications ?Medication ?Instructions ?Recorded ?Confirmed ?Type fluticasone propionate 50 2 spray intranasal DAILY 11/05/22 08/05/25 History mcg/actuation nasal spray,suspension ibuprofen 200 mg tablet 600 mg PO Q6H PRN pain 11/05/22 08/05/25 History Held on 01/17/23. Instructions: until seen by her primary care camphor 4 %-methyl salicylate 30 1 applic topical PRN PRN Pain 01/15/23 08/05/25 History %-menthol 10 % topical cream (Bengay Ultra Strength) multivit with minerals-iron 18 1 tablet PO DAILY 01/15/23 08/05/25 History mg-folic ac 400 mcg-vit K 25 mcg tablet (Adults Multivitamin) vitamin E 800 unit capsule 800 unit PO DAILY 01/15/23 08/05/25 History apixaban 2.5 mg tablet (Eliquis) 2.5 mg PO BID 03/28/23 08/05/25 History ibuprofen 400 mg tablet 400 mg PO Q6H PRN fever or pain 04/18/23 08/05/25 Rx #14 tabs biotin 10,000 mcg chewable tablet 10,000 mcg PO DAILY 08/02/23 08/05/25 History (Hair, Skin and Nails (biotin)) probiotic 243 mg BYMOUTH DAILY 10/18/23 08/05/25 History metoprolol succinate 50 mg 50 mg PO QAM #90 tabs 05/17/25 08/05/25 Rx tablet,extended release 24 hr perindopril erbumine 2 mg tablet 2 mg PO DAILY #90 tabs 07/06/25 08/05/25 Rx Allergies Allergy/AdvReac Type Severity Reaction Status Date / Time acetaminophen (From Vicodin) Allergy Severe Swelling Verified 08/05/25 16:30 of Lip/Tongue/Throat hydrocodone Allergy Severe Anaphylactic Verified 08/05/25 16:30 Shock cefuroxime Allergy Intermediate Hives Verified 08/05/25 16:30 propoxyphene Allergy Mild NECK Verified 08/05/25 16:30 SWELLING Sulfa (Sulfonamide Allergy Mild Nausea Verified 08/05/25 16:30 Antibiotics) prednisone AdvReac Dizziness Verified 08/05/25 16:30 FISH Allergy Severe THROAT Uncoded 10/01/24 13:25 SWELLS Vital Signs Vital Signs - 24 hr 08/05/25 11:59 08/05/25 12:00 08/05/25 12:01 Temperature Pulse Rate 120 H 121 H 121 H Respiratory Rate 20 21 H 21 H Blood Pressure 138/98 H 132/99 H Pulse Oximetry 98 98 98 Oxygen Delivery 08/05/25 12:02 08/05/25 12:23 08/05/25 12:30 Temperature Pulse Rate 120 H 121 H 120 H Respiratory Rate 22 H 22 H 26 H Blood Pressure Pulse Oximetry 98 97 93 Oxygen Delivery 08/05/25 12:31 08/05/25 12:32 08/05/25 12:46 Temperature Pulse Rate 120 H 120 H 120 H Respiratory Rate 19 22 H Blood Pressure 136/99 H Pulse Oximetry 96 96 Oxygen Delivery 08/05/25 12:47 08/05/25 12:48 08/05/25 12:50 Temperature Pulse Rate 120 H 118 H 116 H Respiratory Rate 20 20 20 Blood Pressure 138/88 148/106 H Pulse Oximetry 97 97 97 Oxygen Delivery 08/05/25 13:07 08/05/25 13:12 08/05/25 13:13 Temperature Pulse Rate 115 H 118 H 118 H Respiratory Rate 15 17 Blood Pressure 134/93 H Pulse Oximetry 98 94 Oxygen Delivery 08/05/25 13:13 08/05/25 13:15 08/05/25 13:16 Temperature Pulse Rate 118 H 118 H 118 H Respiratory Rate 19 17 20 Blood Pressure 133/92 H Pulse Oximetry 96 96 95 Oxygen Delivery 08/05/25 13:16 08/05/25 13:29 08/05/25 13:30 Temperature Pulse Rate 118 H 118 H 118 H Respiratory Rate 18 20 18 Blood Pressure 133/92 H 138/100 H Pulse Oximetry 94 96 97 Oxygen Delivery 08/05/25 13:31 08/05/25 13:45 08/05/25 13:46 Temperature Pulse Rate 118 H 118 H 118 H Respiratory Rate 16 14 17 Blood Pressure 137/103 H 141/104 H Pulse Oximetry 95 95 96 Oxygen Delivery 08/05/25 14:04 08/05/25 14:07 08/05/25 14:08 Temperature Pulse Rate 117 H 119 H 118 H Respiratory Rate 33 H 19 22 H Blood Pressure 140/103 H Pulse Oximetry 96 100 100 Oxygen Delivery 08/05/25 14:15 08/05/25 14:16 08/05/25 14:20 Temperature Pulse Rate 119 H 120 H 119 H Respiratory Rate 27 H 22 H 20 Blood Pressure 143/104 H 142/104 H Pulse Oximetry 99 99 97 Oxygen Delivery 08/05/25 16:00 08/05/25 16:00 08/05/25 16:00 Temperature 36.9 C Pulse Rate 118 H 118 H 118 H Respiratory Rate 12 12 Blood Pressure 133/85 Pulse Oximetry 98 98 Oxygen Delivery Room Air 08/05/25 20:00 08/05/25 20:00 08/05/25 22:00 Temperature 36.9 C Pulse Rate 121 H 120 H 121 H Respiratory Rate 12 Blood Pressure 117/79 Pulse Oximetry 95 Oxygen Delivery 08/06/25 00:00 08/06/25 00:00 08/06/25 02:00 Temperature 37.0 C Pulse Rate 121 H 120 H 119 H Respiratory Rate 12 Blood Pressure 117/78 Pulse Oximetry 94 Oxygen Delivery 08/06/25 03:34 08/06/25 04:00 08/06/25 06:00 Temperature 36.3 C L Pulse Rate 119 H 120 H 120 H Respiratory Rate 14 Blood Pressure 114/72 Pulse Oximetry 94 Oxygen Delivery 08/06/25 08:00 08/06/25 10:07 Temperature 36.9 C Pulse Rate 123 H 126 H Respiratory Rate 20 Blood Pressure 99/50 L Pulse Oximetry 97 Oxygen Delivery Exam Const: General: comfortable, no acute distress, alert and awake Orientation/consciousness: patient oriented x3 HENMT: Head: normal to inspection Eyes: General: appearance normal, both eyes and all related structures Pupils: Equal, round and reactive pupils present Neck: Neck: normal visual inspection, supple and no JVD Carotids: normal carotid upstroke Resp: Effort & Inspection: normal respiratory effort Auscultation: crackles Cardio: Rate: tachycardic Rhythm: regular rhythm Heart sounds: S1 normal heart sound present, S2 normal heart sound present and no murmurs GI: Auscultation: normal bowel sounds Skin: General skin exam: normal color Neuro: General: patient oriented x3 Cranial nerves: Yes Equal, round and reactive pupils present Extrem: General: normal to inspection Other: No edema Psych: Appearance: grossly normal Mental Status: mental status grossly normal Results Labs and Meds 08/06/25 03:48 08/06/25 03:48 Lab results: Cardiac Enzymes 08/05/25 08/05/25 08/05/25 Range/Units 11:43 16:21 19:08 AST 41 H (14-36) U/L Troponin I < 0.012 < 0.012 < 0.012 (0.000-0.034) ng/mL Coagulation 08/05/25 Range/Units 11:43 PT 13.6 (11.1-14.7) Seconds APTT 25.6 (22.3-36.8) Seconds CBC 08/06/25 Range/Units 03:48 WBC 4.3 L (4.5-10.0) K/mm3 RBC 3.65 L (4.2-5.4) M/mm3 Hgb 11.6 L (12.0-15.0) g/dL Hct 34.9 L (37.0-47.0) % Plt Count 195 (150-375) k/mm3 Lymph # (Auto) 1.56 (0.9-3.2) K/mm3 [place] # (Auto) 0.5 (0.1-0.6) K/mm3 Eos # (Auto) 0.2 (0-0.3) K/mm3 Baso # (Auto) 0.0 (0.0-0.1) K/mm3 Comprehensive Metabolic Panel 08/05/25 08/06/25 Range/Units 11:43 03:48 Sodium 137 133 L (137-145) mmol/L Potassium 4.1 3.8 (3.4-5.0) mmol/L Chloride 103 104 (98-107) mmol/L Carbon Dioxide 27 28 (22-30) mmol/L BUN 17 17 (7-17) mg/dL Creatinine 0.92 0.97 (0.7-1.0) mg/dL Glucose 102 102 (65-110) mg/dL Calcium 9.9 9.3 (8.4-10.2) mg/dL AST 41 H (14-36) U/L ALT 20 (6-35) U/L Alkaline Phosphatase 70 (38-126) U/L Total Protein 8.0 (6.3-8.2) g/dL Albumin 4.5 (3.5-5.1) g/dL Intake and Output 08/05/25 08/06/25 08/06/25 23:59 07:59 15:59 Intake Total 240 240 Balance 240 240 Intake: Oral 240 240 Other: # Unmeasured Voids 1 Patient Weight 08/06/25 23:59 Weight 61.2 kg
--- NOTE | 2025-08-06 12:38 | WPDHPUPDATE1 ---
History and Physical Update Update Date/Time: 08/06/25 12:38 History and Physical has been reviewed, including an updated exam of the patient. There are NO changes in the patient's condition. Risks, benefits, and alternatives have been discussed and questions answered. Patient agrees to proceed with procedure.
--- NOTE | 2025-08-06 12:38 | WPDMODSED ---
Moderate Sedation Note-Pt Data Patient Data Allergies Allergy/AdvReac Type Severity Reaction Status Date / Time acetaminophen (From Vicodin) Allergy Severe Swelling Verified 08/05/25 16:30 of Lip/Tongue/Throat hydrocodone Allergy Severe Anaphylactic Verified 08/05/25 16:30 Shock cefuroxime Allergy Intermediate Hives Verified 08/05/25 16:30 propoxyphene Allergy Mild NECK Verified 08/05/25 16:30 SWELLING Sulfa (Sulfonamide Allergy Mild Nausea Verified 08/05/25 16:30 Antibiotics) prednisone AdvReac Dizziness Verified 08/05/25 16:30 FISH Allergy Severe THROAT Uncoded 10/01/24 13:25 SWELLS Home Medications ?Medication ?Instructions ?Recorded ?Confirmed ?Type fluticasone propionate 50 2 spray intranasal DAILY 11/05/22 08/05/25 History mcg/actuation nasal spray,suspension ibuprofen 200 mg tablet 600 mg PO Q6H PRN pain 11/05/22 08/05/25 History Held on 01/17/23. Instructions: until seen by her primary care camphor 4 %-methyl salicylate 30 1 applic topical PRN PRN Pain 01/15/23 08/05/25 History %-menthol 10 % topical cream (Bengay Ultra Strength) multivit with minerals-iron 18 1 tablet PO DAILY 01/15/23 08/05/25 History mg-folic ac 400 mcg-vit K 25 mcg tablet (Adults Multivitamin) vitamin E 800 unit capsule 800 unit PO DAILY 01/15/23 08/05/25 History apixaban 2.5 mg tablet (Eliquis) 2.5 mg PO BID 03/28/23 08/05/25 History ibuprofen 400 mg tablet 400 mg PO Q6H PRN fever or pain 04/18/23 08/05/25 Rx #14 tabs biotin 10,000 mcg chewable tablet 10,000 mcg PO DAILY 08/02/23 08/05/25 History (Hair, Skin and Nails (biotin)) probiotic 243 mg BYMOUTH DAILY 10/18/23 08/05/25 History metoprolol succinate 50 mg 50 mg PO QAM #90 tabs 05/17/25 08/05/25 Rx tablet,extended release 24 hr perindopril erbumine 2 mg tablet 2 mg PO DAILY #90 tabs 11/11/25 12/11/25 Rx Current Medications: Active Medications Apixaban (Apixaban 2.5 Mg Tablet) 2.5 mg PO BID [facility] Last Admin: 08/06/25 10:08 Dose: 2.5 mg Fluticasone Propionate (Fluticasone Propionate 0.05% Na Spr 16 Gm Btl (*Bkc)) 2 spray NASAL DAILY [facility] Last Admin: 08/06/25 03:25 Dose: 2 spray Metoprolol Succinate (Metoprolol Succinate Ext Rel 50 Mg Tabcr) 50 mg PO QAM [facility] Last Admin: 08/06/25 10:07 Dose: 50 mg Miscellaneous Information (Perindopril Nonform Can Pt Bring From Home?) 0 each XX CLARIFY [facility] Stop: 09/04/25 00:00 Multivitamins/Minerals (Multivitamins /C Lutein (Centrum Silver) Tablet *Bkc) 1 tab PO DAILY [facility] Last Admin: 08/06/25 10:08 Dose: 1 tab Non-Formulary Medication (Perindopril Erbumine) 2 mg PO DAILY [facility] Stop: 09/05/25 08:59 Ondansetron HCl (Ondansetron Inj 4 Mg/2 Ml Vial) 4 mg IV PUSH Q4H PRN PRN Reason: Nausea Perflutren Lipid Microsphere (Perflutren Lipid Microspheres 1.5 Ml Vial Diluted To 10 Ml Total Volume) 0 ml IV PUSH ONCE PRN; Protocol PRN Reason: adequate visualization Stop: 08/08/25 20:01 Sedation/Anesthesia: No previous sedation/anesthesia problems (including family history). [facility] Past Medical History Medical History Major depression, recurrent, chronic History of basal cell carcinoma (BCC) Elevated serum creatinine Heart murmur Cardiomyopathy IBS (irritable bowel syndrome) RLQ abdominal mass Basal cell carcinoma of right [place] region Benign familial tremor Chronic allergic rhinitis Essential (primary) hypertension Low back pain at multiple sites OAB (overactive bladder) (08/06/18) Surgical History Surgical History Hx of cataract surgery History of cholecystectomy Family History Family History Father Family history of lung cancer Diabetes mellitus Sibling Family history of lung cancer Mother Family history of congestive heart failure Cerebrovascular accident Other Family history of cardiovascular disease Family history of chronic obstructive pulmonary disease Hypertension Social History Social History Social History: Pt is somewhat confident in filling out medical forms. Pt has received assistance paying for medications. Smoking status: Never smoker Tobacco type: cigars Second hand tobacco smoke exposure: Yes Alcohol intake: current Drinks per week: 7 Substance use: never Substance use type: does not use Lack of Transportation: No Lack of Food: Never True Current Housing: I Have Housing Concerned About Future Housing: No Difficulty Paying Gas/Electric Bills: No Difficulty Paying for Meds: YES Currently Unemployed: No Education: Trade/Vocational Certificate Difficulty w/ Childcare or Family Care: No Living arrangements: alone Occupation/Education: unemployed Gender identity (if verbalized by the patient): Female Sexual Orientation (if Verbalized by the Patient): Straight or Heterosexual Spiritual care concerns: No Agree to blood products: Yes Mod Sed Physical Exam Physical Exam Pre Procedural Exam: Normal: Airway, Lungs and Heart Size and Variation: Heart Rate (tachycardic) and Heart Rhythm (irregularly irregular) Hours since solid foods: 6 Hours since liquid intake: 6 Mallampati Classification: class II Internal Medicine - PN: Obj Da Vital Signs Vital Signs: Vital Signs - 24 hr 08/05/25 12:46 08/05/25 12:47 08/05/25 12:48 Temperature Pulse Rate 120 H 120 H 118 H Respiratory Rate 20 20 Blood Pressure 138/88 148/106 H Pulse Oximetry 97 97 Oxygen Delivery 08/05/25 12:50 08/05/25 13:07 08/05/25 13:12 Temperature Pulse Rate 116 H 115 H 118 H Respiratory Rate 20 15 17 Blood Pressure 134/93 H Pulse Oximetry 97 98 94 Oxygen Delivery 08/05/25 13:13 08/05/25 13:13 08/05/25 13:15 Temperature Pulse Rate 118 H 118 H 118 H Respiratory Rate 19 17 Blood Pressure Pulse Oximetry 96 96 Oxygen Delivery 08/05/25 13:16 08/05/25 13:16 08/05/25 13:29 Temperature Pulse Rate 118 H 118 H 118 H Respiratory Rate 20 18 20 Blood Pressure 133/92 H 133/92 H 138/100 H Pulse Oximetry 95 94 96 Oxygen Delivery 08/05/25 13:30 08/05/25 13:31 08/05/25 13:45 Temperature Pulse Rate 118 H 118 H 118 H Respiratory Rate 18 16 14 Blood Pressure 137/103 H Pulse Oximetry 97 95 95 Oxygen Delivery 08/05/25 13:46 08/05/25 14:04 08/05/25 14:07 Temperature Pulse Rate 118 H 117 H 119 H Respiratory Rate 17 33 H 19 Blood Pressure 141/104 H 140/103 H Pulse Oximetry 96 96 100 Oxygen Delivery 08/05/25 14:08 08/05/25 14:15 08/05/25 14:16 Temperature Pulse Rate 118 H 119 H 120 H Respiratory Rate 22 H 27 H 22 H Blood Pressure 143/104 H Pulse Oximetry 100 99 99 Oxygen Delivery 08/05/25 14:20 08/05/25 16:00 08/05/25 16:00 Temperature Pulse Rate 119 H 118 H 118 H Respiratory Rate 20 12 Blood Pressure 142/104 H Pulse Oximetry 97 98 Oxygen Delivery Room Air 08/05/25 16:00 08/05/25 20:00 08/05/25 20:00 Temperature 36.9 C 36.9 C Pulse Rate 118 H 121 H 120 H Respiratory Rate 12 12 Blood Pressure 133/85 117/79 Pulse Oximetry 98 95 Oxygen Delivery 08/05/25 22:00 08/06/25 00:00 08/06/25 00:00 Temperature 37.0 C Pulse Rate 121 H 121 H 120 H Respiratory Rate 12 Blood Pressure 117/78 Pulse Oximetry 94 Oxygen Delivery 08/06/25 02:00 08/06/25 03:34 08/06/25 04:00 Temperature 36.3 C L Pulse Rate 119 H 119 H 120 H Respiratory Rate 14 Blood Pressure 114/72 Pulse Oximetry 94 Oxygen Delivery 08/06/25 06:00 08/06/25 08:00 08/06/25 10:07 Temperature 36.9 C Pulse Rate 120 H 123 H 126 H Respiratory Rate 20 Blood Pressure 99/50 L Pulse Oximetry 97 Oxygen Delivery 08/06/25 11:57 Temperature 36.9 C Pulse Rate 124 H Respiratory Rate 20 Blood Pressure 127/77 Pulse Oximetry 96 Oxygen Delivery Intake/Output Intake/Output: Intake & Output 08/03/25 08/04/25 08/05/25 08/06/25 23:59 23:59 23:59 23:59 Intake Total 240 240 Balance 240 240 Meds/Results Medications: Active Medications Generic Name Dose Route Start Last Admin Trade Name Freq PRN Reason Stop Dose Admin Apixaban 2.5 mg 08/06/25 09:00 08/06/25 10:08 Apixaban 2.5 Mg Tablet PO 2.5 mg BID MATHEUS Administration Fluticasone Propionate 2 spray 08/06/25 09:00 08/06/25 03:25 Fluticasone Propionate 0.05% Na Spr 16 Gm Btl (*Bkc) NASAL 2 spray DAILY MATHEUS Administration Metoprolol Succinate 50 mg 08/06/25 09:00 08/06/25 10:07 Metoprolol Succinate Ext Rel 50 Mg Tabcr PO 50 mg QAM MATHEUS Administration Miscellaneous Information 0 each 08/05/25 00:01 Perindopril Nonform Can Pt Bring From Home? XX 09/04/25 00:00 CLARIFY MATHEUS Multivitamins/Minerals 1 tab 08/06/25 09:00 08/06/25 10:08 Multivitamins /C Lutein (Centrum Silver) Tablet *Bkc PO 1 tab DAILY MATHEUS Administration Non-Formulary Medication 2 mg 08/06/25 09:00 Perindopril Erbumine PO 09/05/25 08:59 DAILY [facility] Ondansetron HCl 4 mg 08/05/25 13:54 Ondansetron Inj 4 Mg/2 Ml Vial IV PUSH Q4H PRN Nausea Perflutren Lipid Microsphere 0 ml 08/05/25 20:01 Perflutren Lipid Microspheres 1.5 Ml Vial Diluted To 10 Ml Total Volume IV PUSH 08/08/25 20:01 ONCE PRN adequate visualization Protocol Radiology Results: ITS Impressions Chest X-Ray 08/05/25 11:59 Impression: Trace left pleural effusion Labs 08/06/25 03:48 08/06/25 03:48 Labs: Laboratory Results - last 24 hr 08/05/25 08/05/25 08/05/25 11:43 14:05 16:21 WBC RBC Hgb Hct MCV MCH MCHC RDW Plt Count MPV Immature Gran % (Auto) Neut % (Auto) Lymph % (Auto) [place] % (Auto) Eos % (Auto) Baso % (Auto) Lymph # (Auto) [place] # (Auto) Eos # (Auto) Baso # (Auto) Abs Immat Gran (auto) Absolute Neuts (auto) Absolute Nucleated RBC Nucleated RBC % Sodium 137 Potassium 4.1 Chloride 103 Carbon Dioxide 27 Anion Gap 7 BUN 17 Creatinine 0.92 Estim Creat Clear Calc 34 Estimated GFR 58 L Glucose 102 Calcium 9.9 Magnesium 2.2 Total Bilirubin 1.1 AST 41 H ALT 20 Alkaline Phosphatase 70 Troponin I < 0.012 < 0.012 NT-Pro-B Natriuret Pep 2050 H Total Protein 8.0 Albumin 4.5 Lipase 185 Urine Color Yellow Urine Appearance Clear Urine pH 7.0 Ur Specific [place] 1.008 Urine Protein Negative Urine Glucose (UA) Negative Urine Ketones Negative Ur Blood (Man) Negative Urine Nitrate Negative Urine Bilirubin Negative Urine Urobilinogen 0.2 Leukocyte Esterase Rfl Trace H Urine RBC 0-2 Urine WBC 0-5 Ur Squamous Epith Cells None seen Urine Bacteria None seen Urine Casts 0-2 08/05/25 08/06/25 19:08 03:48 WBC 4.3 L RBC 3.65 L Hgb 11.6 L Hct 34.9 L MCV 95.6 MCH 31.8 MCHC 33.2 RDW 11.7 Plt Count 195 MPV 9.9 Immature Gran % (Auto) 0.2 Neut % (Auto) 45.1 L Lymph % (Auto) 36.6 [place] % (Auto) 12.7 H Eos % (Auto) 4.9 H Baso % (Auto) 0.5 Lymph # (Auto) 1.56 [place] # (Auto) 0.5 Eos # (Auto) 0.2 Baso # (Auto) 0.0 Abs Immat Gran (auto) 0.01 Absolute Neuts (auto) 1.9 Absolute Nucleated RBC 0.000 Nucleated RBC % 0.0 Sodium 133 L Potassium 3.8 Chloride 104 Carbon Dioxide 28 Anion Gap 1 L BUN 17 Creatinine 0.97 Estim Creat Clear Calc 32 Estimated GFR 55 L Glucose 102 Calcium 9.3 Magnesium Total Bilirubin AST ALT Alkaline Phosphatase Troponin I < 0.012 NT-Pro-B Natriuret Pep Total Protein Albumin Lipase Urine Color Urine Appearance Urine pH Ur Specific [place] Urine Protein Urine Glucose (UA) Urine Ketones Ur Blood (Man) Urine Nitrate Urine Bilirubin Urine Urobilinogen Leukocyte Esterase Rfl Urine RBC Urine WBC Ur Squamous Epith Cells Urine Bacteria Urine Casts ASA Classification/Sedation ASA Classification/Sedation ASA Class: III Emergent: No Risks: Risks, benefits and alternatives explained and patient/family accepted plan for sedation. Patient re-evaluated immediately prior to sedation.
--- NOTE | 2025-08-06 13:00 | ECG_ITS ---
Test Date: 2025-08-06 13:07:40 Measurements Intervals [place] Rate: 106 P: 0 GA: 0 QRS: -38 QRSD: 102 T: -49 QT: 344 QTc: 459 Interpretive Statements ATRIAL FLUTTER/TACHYCARDIA WITH RAPID VENTRICULAR RESPONSE LEFT AXIS DEVIATION DELAYED PRECORDIAL R/S TRANSITION VOLTAGE CRITERIA FOR LVH ST-T WAVE ABNORMALITY IN ANTEROLAT/INF LEADS- CONSIDER ISCHEMIA ABNORMAL ECG Compared to ECG 08/05/2025 21:43:20 HEART RATE HAS DECREASED Possible ischemia now present Electronically Signed On 08-06-2025 13:53:44 [employer] by Demarco Gunter D.O.
[2025-08-06] MEDS: PROPOFOL IV EMULSION 200 MG/20 ML VIAL 20 MG IV PUSH (13:04)
--- NOTE | 2025-08-06 13:11 | ECG_ITS ---
Test Date: 2025-08-06 13:12:36 Measurements Intervals [place] Rate: 65 P: 61 FL: 192 QRS: -35 QRSD: 108 T: -55 QT: 431 QTc: 450 Interpretive Statements SINUS RHYTHM WITH MARKED SINUS ARRHYTHMIA LEFT AXIS DEVIATION DELAYED PRECORDIAL R/S TRANSITION LEFT VENTRICULAR HYPERTROPHY ST-T WAVE ABNORMALITY IN ANTEROLAT/INF LEADS- CONSIDER ISCHEMIA ABNORMAL ECG Compared to ECG 08/06/2025 13:07:40 Atrial flutter no longer present Electronically Signed On 08-06-2025 13:54:46 DIAGNOSTICS TECH by Demarco Gunter D.O.
--- NOTE | 2025-08-06 13:16 | WPDCARDVER ---
Cardioversion Cardioversion Date of procedure: 08/06/25 Procedure: Synchronized cardioversion Pre-op diagnosis: Atrial tachycardia Post-op diagnosis: Same Indications: Atrial tachycardia/flutter Description of procedure: After adequate sedation, synchronized cardioversion performed with 200 joule with brief return of sinus rhythm. Rhythm quickly returned to atrial tachycardia/flutter. Amiodarone 150 mg IV push over 10 minutes delivered. [place] through the infusion, patient converted to sinus rhythm. Sedation: 20 mg propofol 2 mg Versed 1 mg morphine Findings: Successful synchronized cardioversion Conclusion: Evangelical of sinus rhythm with amiodarone. Continue amiodarone 400 mg p.o. b.i.d. for 1 week and then 200 mg p.o. daily thereafter Follow up with Dr. Gill in 1-2 weeks
[2025-08-06] MEDS: MIDAZOLAM HCL (*CRX) 2 MG/2 ML VIAL IV PUSH (13:24)
[2025-08-06] MEDS: MORPHINE SULFATE (*CRX) 4 MG/ML INJ 1 MG IV PUSH (13:25)
[2025-08-06] MEDS: AMIODARONE HCL 200 MG TABLET 400 MG PO (17:18)
[2025-08-07] VITALS (9 sets, daily range): BP systolic 89–120; BP diastolic 48–61; PULSE 60–75; RESP 16; TEMP 36.4–36.9; O2SAT 95–98
--- NOTE | 2025-08-07 08:04 | P.PNIM_ITS ---
Assessment and Plan Assessment and Plan (1) Atrial flutter with rapid ventricular response: Code(s): I48.92 - Unspecified atrial flutter Status: Acute Assessment and Plan: Initial EKG reads a flutter/tachycardia with RVR. Rate 120. Given total of 7.5 mg IVP metoprolol tartrate in the ED with little improvement in her heart rate. On telemetry, the patient's rate is regular. * Cardiology note from 03/08/2025 states her most recent echo showed preserved systolic function, MVP and moderate MR. * Continue 2.5 mg b.i.d. Eliquis * Continue 50 mg metoprolol succinate daily * Echo ordered * Cardiology consult * Successfully cardioverted to NSR on 08/06 * Continue amiodarone 400 mg p.o. b.i.d. for 1 week and then 200 mg p.o. daily thereafter * F/u w/ cardiology in 1-2 weeks (2) Dyspnea: Qualifiers: Dyspnea type: dyspnea on exertion Qualified Code(s): R06.09 - Other forms of dyspnea Code(s): R06.00 - Dyspnea, unspecified Status: Chronic Assessment and Plan: Has been present for at least 2 years intermittently. Does not necessarily coincide with activity. Chest x-ray reads trace left pleural effusion and COPD changes. Differential diagnosis include AFib, COPD, deconditioning. * monitor respiratory status * holding off on diuresis as patient does not appear overloaded and is not in respiratory distress. (3) Essential (primary) hypertension: Code(s): I10 - Essential (primary) hypertension Status: Chronic Assessment and Plan: * Continue metoprolol and perindopril if someone is able to bring her home supply. Plan Diet: Heart healthy DVT prophylaxis: SCDs lines/drains: PIV Fluids: NA Code status: Full Subjective Date/time seen: 08/07/25 08:04 Interval history: 84-year-old female with a past medical history of hypertension, cardiomyopathy, AFib, depression presents to the ED on 08/05/2025 with complaints of fatigue and exertional dyspnea. She tracks her heart rate and states she has been consistently running in the low 100s. 08/06/2025 Patient sitting comfortably in bed at time of exam. Patient underwent cardioversion today per Dr. Deras of Cardiology. She has successfully converted to NSR. She states she is feeling much better after cardioversion: denies any CP, S OB, n/v, abd pain. Plan to observe overnight with hopeful discharge tomorrow. Review of Systems Review of Systems: All systems reviewed & are unremarkable except as noted in HPI and below Exam Narrative: GENERAL: non-toxic appearing, in no acute distress. HEAD: Normocephalic, atraumatic. EYES: Conjunctivae clear. NOSE: Normal no drainage. THROAT: Pharynx clear, no exudate. NECK: Trachea midline. No adenopathy, no masses. RESPIRATORY: Airway patent, respirations nonlabored. CTA. CARDIOVASCULAR: Tachycardic with regular rhythm BREASTS: Defer GASTROINTESTINAL: Abdomen is soft and nontender. No organomegaly. Bowel sound s normal in all quadrants. GENITOURINARY: Defer MUSCULOSKELETAL: Moves all extremities. No gross deformities. No edema SKIN: Warm, dry, normal color. NEURO: A&O X4. Speech clear PSYCHIATRIC: Normal interaction Objective Data Vital Signs Vital Signs: Vital Signs - 24 hr 08/06/25 10:00 08/06/25 10:07 08/06/25 11:57 Temperature 98.5 F Pulse Rate 121 H 126 H 124 H Respiratory Rate 20 Blood Pressure 127/77 Pulse Oximetry 96 Oxygen Delivery Oxygen Flow Rate 08/06/25 12:00 08/06/25 12:57 08/06/25 13:00 Temperature Pulse Rate 122 H 120 H 119 H Respiratory Rate 15 18 Blood Pressure 132/98 H 136/86 Pulse Oximetry 100 98 Oxygen Delivery Nasal Cannula Nasal Cannula Oxygen Flow Rate 2 2 08/06/25 13:05 08/06/25 13:10 08/06/25 13:15 Temperature Pulse Rate 109 H 104 H 65 Respiratory Rate 20 13 14 Blood Pressure 112/72 93/54 L 88/60 L Pulse Oximetry 98 98 98 Oxygen Delivery Nasal Cannula Nasal Cannula Nasal Cannula Oxygen Flow Rate 2 2 2 08/06/25 13:30 08/06/25 13:45 08/06/25 14:00 Temperature Pulse Rate 65 66 72 Respiratory Rate 15 14 18 Blood Pressure 96/57 L 96/62 L 96/61 L Pulse Oximetry 95 93 96 Oxygen Delivery Room Air Room Air Room Air Oxygen Flow Rate 08/06/25 14:15 08/06/25 16:00 08/06/25 16:00 Temperature 98.2 F Pulse Rate 64 70 67 Respiratory Rate 15 16 Blood Pressure 105/62 108/62 Pulse Oximetry 96 98 Oxygen Delivery Room Air Oxygen Flow Rate 08/06/25 17:18 08/06/25 18:00 08/06/25 20:00 Temperature 97.5 F L Pulse Rate 71 71 80 Respiratory Rate 16 Blood Pressure 116/60 Pulse Oximetry 94 Oxygen Delivery Oxygen Flow Rate 08/06/25 20:00 08/06/25 21:45 08/06/25 22:00 Temperature Pulse Rate 70 63 Respiratory Rate Blood Pressure Pulse Oximetry 94 Oxygen Delivery Room Air Oxygen Flow Rate 08/07/25 00:00 08/07/25 00:00 08/07/25 02:00 Temperature 97.6 F Pulse Rate 70 61 60 Respiratory Rate 16 Blood Pressure 92/52 L Pulse Oximetry 95 Oxygen Delivery Oxygen Flow Rate 08/07/25 04:00 08/07/25 04:00 08/07/25 06:00 Temperature 97.5 F L Pulse Rate 60 75 62 Respiratory Rate 16 Blood Pressure 89/48 L Pulse Oximetry 96 Oxygen Delivery Oxygen Flow Rate Intake/Output Intake/Output: Intake & Output 08/04/25 08/05/25 08/06/25 08/07/25 23:59 23:59 23:59 23:59 Intake Total 240 730 Balance 240 730 Meds/Results Medications: Active Medications Generic Name Dose Route Start Last Admin Trade Name Freq PRN Reason Stop Dose Admin Amiodarone HCl 400 mg 08/06/25 17:00 08/06/25 17:18 Amiodarone Hcl 200 Mg Tablet PO 400 mg BID MATHEUS Administration Apixaban 2.5 mg 08/06/25 09:00 08/06/25 17:18 Apixaban 2.5 Mg Tablet PO 2.5 mg BID MATHEUS Administration Fluticasone Propionate 2 spray 08/06/25 09:00 08/06/25 03:25 Fluticasone Propionate 0.05% Na Spr 16 Gm Btl (*Bkc) NASAL 2 spray DAILY MATHEUS Administration Lisinopril 5 mg 08/06/25 13:05 08/06/25 15:27 Lisinopril 5 Mg Tablet PO 09/05/25 13:04 5 mg DAILY MATHEUS Administration Metoprolol Succinate 50 mg 08/06/25 09:00 08/06/25 10:07 Metoprolol Succinate Ext Rel 50 Mg Tabcr PO 50 mg QAM MATHEUS Administration Multivitamins/Minerals 1 tab 08/06/25 09:00 08/06/25 10:08 Multivitamins /C Lutein (Centrum Silver) Tablet *Bkc PO 1 tab DAILY MATHEUS Administration Ondansetron HCl 4 mg 08/05/25 13:54 Ondansetron Inj 4 Mg/2 Ml Vial IV PUSH Q4H PRN Nausea Perflutren Lipid Microsphere 0 ml 08/05/25 20:01 Perflutren Lipid Microspheres 1.5 Ml Vial Diluted To 10 Ml Total Volume IV PUSH 08/08/25 20:01 ONCE PRN adequate visualization Protocol Radiology Results: ITS Impressions Chest X-Ray 08/05/25 11:59 Impression: Trace left pleural effusion Quality VTE Prophylaxis VTE prophylaxis: mechanical ordered
[2025-08-07] MEDS: AMIODARONE HCL 200 MG TABLET 400 MG PO (08:52)
[2025-08-07] MEDS: FLUTICASONE PROPIONATE 0.05% NA SPR 16 GM BTL (*BKC) 2 SPRAY NASAL (08:52)
[2025-08-07] MEDS: METOPROLOL SUCCINATE EXT REL 50 MG TABCR PO (08:53)
[2025-08-07] MEDS: APIXABAN 2.5 MG TABLET PO (08:53)
[2025-08-07] MEDS: MULTIVITAMINS /C LUTEIN (CENTRUM SILVER) TABLET *BKC 1 TAB PO (08:53)
--- NOTE | 2025-08-07 11:01 | P.PNCA_ITS ---
Progress Note: A&P Assessment and Plan (1) Atrial flutter with rapid ventricular response: Code(s): I48.92 - Unspecified atrial flutter Status: Acute Assessment and Plan: Has a history of paroxysmal atrial fibrillation status post cardioversion in 2022. She has been maintained on metoprolol and anticoagulated with apixaban. She presents to the hospital now with shortness of breath and fatigue and has been found to have atrial flutter with rapid ventricular response. * She is status post cardioversion this hospitalization * Continue amiodarone 400 mg b.i.d. for 1 week and then after that 200 mg daily. * Continue metoprolol * Continue anticoagulation * Echocardiogram showed normal LV function, mild MR with severe mitral annular calcification * Should be stable from cardiac standpoint to go home (2) Chronic anticoagulation: Code(s): Z79.01 - [facility] (current) use of anticoagulants Status: Acute Assessment and Plan: Continue apixaban 2.5 mg b.i.d. (dose adjusted for age, weight) for stroke risk reduction. (3) Essential (primary) hypertension: Code(s): I10 - Essential (primary) hypertension Status: Chronic Assessment and Plan: Blood pressure is at goal. Continue metoprolol. Discontinue lisinopril given soft blood pressures. (4) Mitral regurgitation: Code(s): I34.0 - Nonrheumatic mitral (valve) insufficiency Status: Acute Assessment and Plan: As above, repeat echocardiogram this morning showed mild MR with severe mitral annular calcification. Outpatient surveillance with periodic echocardiogram. Subjective Date/time seen: 08/07/25 11:01 Interval history: 84-year-old female with a past medical history of hypertension, cardiomyopathy, AFib, depression presents to the ED on 08/05/2025 with complaints of fatigue and exertional dyspnea. She tracks her heart rate and states she has been consistently running in the low 100s. 08/06/2025 Patient sitting comfortably in bed at time of exam. Patient underwent cardioversion today per Dr. Deras of Cardiology. She has successfully converted to NSR. She states she is feeling much better after cardioversion: denies any CP, SOB, n/v, abd pain. Plan to observe overnight with hopeful discharge tomorrow. Date of service 08/07/2025: Maintaining sinus rhythm. Denies chest pain, shortness of breath. Review of Systems Review of Systems: All systems reviewed & are unremarkable except as noted in HPI and below Exam Const: General: comfortable, no acute distress, alert and awake Orientation/consciousness: patient oriented x3 HENMT: Head: normal to inspection Eyes: General: appearance normal, both eyes and all related structures Pupils: Equal, round and reactive pupils present Neck: Neck: normal visual inspection, supple and no JVD Carotids: normal carotid upstroke Resp: Effort & Inspection: normal respiratory effort Auscultation: crackles Cardio: Rate: tachycardic Rhythm: regular rhythm Heart sounds: S1 normal heart sound present, S2 normal heart sound present and no murmurs GI: Auscultation: normal bowel sounds Skin: General skin exam: normal color Neuro: General: patient oriented x3 Cranial nerves: Yes Equal, round and reactive pupils present Extrem: General: normal to inspection Other: No edema Psych: Appearance: grossly normal Mental Status: mental status grossly normal Objective Data Vital Signs Vital Signs: Vital Signs - 24 hr 08/06/25 11:57 08/06/25 12:00 08/06/25 12:57 Temperature 36.9 C Pulse Rate 124 H 122 H 120 H Respiratory Rate 20 15 Blood Pressure 127/77 132/98 H Pulse Oximetry 96 100 Oxygen Delivery Nasal Cannula Oxygen Flow Rate 2 08/06/25 13:00 08/06/25 13:05 08/06/25 13:10 Temperature Pulse Rate 119 H 109 H 104 H Respiratory Rate 18 20 13 Blood Pressure 136/86 112/72 93/54 L Pulse Oximetry 98 98 98 Oxygen Delivery Nasal Cannula Nasal Cannula Nasal Cannula Oxygen Flow Rate 2 2 2 08/06/25 13:15 08/06/25 13:30 08/06/25 13:45 Temperature Pulse Rate 65 65 66 Respiratory Rate 14 15 14 Blood Pressure 88/60 L 96/57 L 96/62 L Pulse Oximetry 98 95 93 Oxygen Delivery Nasal Cannula Room Air Room Air Oxygen Flow Rate 2 08/06/25 14:00 08/06/25 14:15 08/06/25 16:00 Temperature 36.8 C Pulse Rate 72 64 70 Respiratory Rate 18 15 16 Blood Pressure 96/61 L 105/62 108/62 Pulse Oximetry 96 96 98 Oxygen Delivery Room Air Room Air Oxygen Flow Rate 08/06/25 16:00 08/06/25 17:18 08/06/25 18:00 Temperature Pulse Rate 67 71 71 Respiratory Rate Blood Pressure Pulse Oximetry Oxygen Delivery Oxygen Flow Rate 08/06/25 20:00 08/06/25 20:00 08/06/25 21:45 Temperature 36.4 C L Pulse Rate 80 70 Respiratory Rate 16 Blood Pressure 116/60 Pulse Oximetry 94 94 Oxygen Delivery Room Air Oxygen Flow Rate 08/06/25 22:00 08/07/25 00:00 08/07/25 00:00 Temperature 36.4 C Pulse Rate 63 70 61 Respiratory Rate 16 Blood Pressure 92/52 L Pulse Oximetry 95 Oxygen Delivery Oxygen Flow Rate 08/07/25 02:00 08/07/25 04:00 08/07/25 04:00 Temperature 36.4 C L Pulse Rate 60 60 75 Respiratory Rate 16 Blood Pressure 89/48 L Pulse Oximetry 96 Oxygen Delivery Oxygen Flow Rate 08/07/25 06:00 08/07/25 08:00 08/07/25 08:00 Temperature 36.7 C Pulse Rate 62 68 70 Respiratory Rate 16 Blood Pressure 108/48 L Pulse Oximetry 95 Oxygen Delivery Oxygen Flow Rate 08/07/25 08:00 08/07/25 08:52 08/07/25 08:53 Temperature Pulse Rate 73 73 Respiratory Rate Blood Pressure Pulse Oximetry 95 Oxygen Delivery Room Air Oxygen Flow Rate Intake/Output Intake/Output: Intake & Output 08/04/25 08/05/25 08/06/25 08/07/25 23:59 23:59 23:59 23:59 Intake Total 240 730 240 Balance 240 730 240 Meds/Results Medications: Active Medications Generic Name Dose Route Start Last Admin Trade Name Nick PRN Reason Stop Dose Admin Amiodarone HCl 400 mg 08/06/25 17:00 08/07/25 08:52 Amiodarone Hcl 200 Mg Tablet PO 400 mg BID MATHEUS Administration Apixaban 2.5 mg 08/06/25 09:00 08/07/25 08:53 Apixaban 2.5 Mg Tablet PO 2.5 mg BID MATHEUS Administration Fluticasone Propionate 2 spray 08/06/25 09:00 08/07/25 08:52 Fluticasone Propionate 0.05% Na Spr 16 Gm Btl (*Bkc) NASAL 2 spray DAILY MATHEUS Administration Lisinopril 5 mg 08/06/25 13:05 08/07/25 08:52 Lisinopril 5 Mg Tablet PO 09/05/25 13:04 5 mg DAILY MATHEUS Administration Metoprolol Succinate 50 mg 08/06/25 09:00 08/07/25 08:53 Metoprolol Succinate Ext Rel 50 Mg Tabcr PO 50 mg QAM MATHEUS Administration Multivitamins/Minerals 1 tab 08/06/25 09:00 08/07/25 08:53 Multivitamins /C Lutein (Centrum Silver) Tablet *Bkc PO 1 tab DAILY MATHEUS Administration Ondansetron HCl 4 mg 08/05/25 13:54 Ondansetron Inj 4 Mg/2 Ml Vial IV PUSH Q4H PRN Nausea Perflutren Lipid Microsphere 0 ml 08/05/25 20:01 Perflutren Lipid Microspheres 1.5 Ml Vial Diluted To 10 Ml Total Volume IV PUSH 08/08/25 20:01 ONCE PRN adequate visualization Protocol Radiology Results: ITS Impressions Chest X-Ray 08/05/25 11:59 Impression: Trace left pleural effusion
--- NOTE | 2025-08-07 11:49 | P.DS_ITS ---
DS: Admitting Diagnosis Discharge Date 08/07 Admitting Diagnosis fatigue, dyspnea DS: Discharge Diagnosis Discharge Diagnosis (1) Atrial flutter with rapid ventricular response: Code(s): I48.92 - Unspecified atrial flutter Status: Acute (2) Dyspnea: Qualifiers: Dyspnea type: dyspnea on exertion Qualified Code(s): R06.09 - Other forms of dyspnea Code(s): R06.00 - Dyspnea, unspecified Status: Chronic (3) Essential (primary) hypertension: Code(s): I10 - Essential (primary) hypertension Status: Chronic DS: Summary Hospital Course Hospital Course: Patient with history of hypertension, cardiomyopathy, atrial fibrillation, and depression presented to ED with fatigue and dyspnea. Reports heart rate consistently in low 100s with new hand tremors. Endorses recent truncal weight gain. Denies chest pain or nausea. Of note, patient had similar intermittent symptoms for approximately 2 years and underwent ALEE-guided cardioversion in December 2022 for AFib with RVR. Currently on metoprolol and apixaban for AFib management. ADMISSION VITALS: BP 149/107, HR 119, RR 20, afebrile, SpO2 99% on RA PERTINENT FINDINGS: * EKG: Atrial flutter with RVR, rate 120 * BNP: 0 * Troponins: Negative * CXR: Trace left pleural effusion, COPD changes * Echo: Normal LV function, mild mitral regurgitation with severe mitral annular calcification HOSPITAL COURSE: Patient underwent successful cardioversion on 08/06/2025 with conversion to normal sinus rhythm. Tolerated procedure well with significant symptomatic improvement. Hemodynamically stable post-cardioversion. DISCHARGE MEDICATIONS: * Amiodarone 400mg BID x 1 week, then 200mg daily * Metoprolol (continue current dose) * Apixaban 2.5mg BID * Lisinopril DISCONTINUED FOLLOW-UP: Outpatient cardiology with Dr. Gill; periodic echocardiogram surveillance for mitral regurgitation Time Spent with Patient Time attestation: Total time spent providing and/or coordinating discharge services: Exam Narrative: GENERAL: non-toxic appearing, in no acute distress. HEAD: Normocephalic, atraumatic. EYES: Conjunctivae clear. NOSE: Normal no drainage. THROAT: Pharynx clear, no exudate. NECK: Trachea midline. No adenopathy, no masses. RESPIRATORY: Airway patent, respirations nonlabored. CTA. CARDIOVASCULAR: Tachycardic with regular rhythm BREASTS: Defer GASTROINTESTINAL: Abdomen is soft and nontender. No organomegaly. Bowel sounds normal in all quadrants. GENITOURINARY: Defer MUSCULOSKELETAL: Moves all extremities. No gross deformities. No edema SKIN: Warm, dry, normal color. NEURO: A&O X4. Speech clear PSYCHIATRIC: Normal interaction Const: General: comfortable Discharge Plan Discharge Attending physician on discharge: Rodger Caro Consulting providers: Jamey Reyez; Faustino Gill Discharging Clinician: Chrissy Rodriguez Patient Disposition: Home Activity: december shower Diet: heart healthy Discharge Instructions: Why you were in the hospital: You came to the hospital because your heart was beating too fast (atrial flutter) and you were feeling tired and short of breath. What we did: We performed a cardioversion (a procedure to reset your heart rhythm back to normal). This was successful and your heart is now beating in a normal rhythm. Your medications: NEW medication: * Amiodarone 400mg - Take twice daily for 1 week, then decrease to 200mg once daily * This helps keep your heart in normal rhythm Continue these medications: * Metoprolol - Continue as prescribed * Eliquis (apixaban) 2.5mg - Take twice daily (morning and evening) * Very important - this prevents blood clots and stroke STOPPED medication: * Lisinopril - Do not take this anymore Warning signs - Call 911 or go to the ER if you have: * Chest pain or pressure * Severe shortness of breath * Fast heart rate that doesn't slow down * Dizziness or fainting * Sudden weakness or trouble speaking Call your doctor if you notice: * Your heart racing again * Increased swelling in legs or feet * Weight gain of 3+ pounds in one day Follow-up: * Schedule an appointment with Dr. Gill within 1-2 weeks * You will need follow-up heart ultrasounds as recommended Activity: * Resume normal activities as tolerated * Rest when you feel tired Patient Instructions: Antibiotic Form Patient Language: Turkish Stand Alone Forms: General Discharge Information Follow-up/Referrals: Faustino Gill MD [Physician, Cardiology] - 2 Weeks Referral Note: please f/u with your own environmental planning engineer or environmental planning engineer here at [facility]. Christine Ray PA-C [Primary Care Provider, [facility]] - 2 Weeks Discharge Medications: New amiodarone [Pacerone] 200 mg Tablet 400 mg PO BID 7 Days Qty: 90 0RF Rx Instructions: take 400 mg twice a day for 1 week, then 200 mg daily Continued ibuprofen 200 mg tablet 600 mg PO Q6H PRN (Reason: pain) fluticasone propionate 50 mcg/actuation spray,suspension 2 spray intranasal DAILY Rx Instructions: administer into each nostril Eliquis 2.5 mg tablet 2.5 mg PO BID Hair, Skin and Nails (biotin) 10,000 mcg tablet,chewable 10,000 mcg PO DAILY probiotic 243 mg BYMOUTH DAILY vitamin E 800 unit Capsule 800 unit PO DAILY Adults Multivitamin 18 mg iron-400 mcg-25 mcg Tablet 1 tablet PO DAILY Bengay Ultra Strength 4-30-10 % Cream 1 applic TOPICAL PRN PRN (Reason: Pain) Rx Instructions: neck pain ibuprofen 400 mg tablet 400 mg PO Q6H PRN (Reason: fever or pain) Qty: 14 0RF metoprolol succinate 50 mg tablet extended release 24 hr 50 mg PO QAM Qty: 90 0RF Discontinued perindopril erbumine 2 mg tablet 2 mg PO DAILY Qty: 90 0RF Date of admission: 08/06/25 13:05 Primary Care Provider: Christine Ray Admitting Provider: Corby Salmon Attending physician on admission: Corby Salmon Condition: Stable Quality VTE Prophylaxis VTE prophylaxis: mechanical ordered Hospitalist MIPS Heart Failure (Exclusion) Patient has history of Heart Transplant or Left Ventricular Assistive Device?: No IF YES, STOP HERE Heart Failure (Qualifier) Patient has current or prior documentation of LVEF less than or equal to 40%, or mod/servere depressed LVSF?: No IF NO, STOP HERE
== END 2025-08-07 13:00 | disposition home or self-care (01) | DRG 310 ==
LOC: ANHED 13:54 → ANHIMU 14:19
PROVIDERS: Emergency Medicine; Internal Medicine; Nurse Practitioner Adult Health; Admitting Provider Family Medicine; Emergency Provider Emergency Medicine; PCP Physician Assistant Medical; Visit Provider Nurse Practitioner
PROC: 5A2204Z Restoration of Cardiac Rhythm, Single (ICD-10-PCS; principal; 2025-08-06 12:30)
DX: I48.92 Unspecified atrial flutter (principal); R06.00 Dyspnea, unspecified; I11.9 Hypertensive heart disease without heart failure; I43 Cardiomyopathy in diseases classified elsewhere; I48.0 Paroxysmal atrial fibrillation; I34.0 Nonrheumatic mitral (valve) insufficiency; F32.A Depression, unspecified; R25.1 Tremor, unspecified; Z85.828 Personal history of other malignant neoplasm of skin; Z90.49 Acquired absence of other specified parts of digestive tract; Z79.01 Long term (current) use of anticoagulants
CPT/HCPCS: 36415; 71046; 80048; 80053; 81001; 83690; 83735; 83880; 84484; 85025; 85610; 85730; 92960; 93005; 93306; 96374; 96375; 99285; A9270; G0378; J0283; J0616; J2250; J2270; J2704; J7040